=== PATIENT | male | born 1940 | race Caucasian/White ===

== ENCOUNTER → 2019-02-24 | Outpatient (REF) | payer MEDICARE | LOC: M SMT 12:52 | PROVIDERS: ATTEND Nurse Practitioner Family | DX: R97.20 Elevated prostate specific antigen [PSA] (principal) | CPT/HCPCS: 51798; 87086; G0463 ==

== ENCOUNTER → 2019-07-06 | Outpatient (REF) | payer MEDICARE ==
[2019-07-06 19:57] LABS: APPEARANCE, URINE CLEAR (CLEAR); BACTERIA, URINE AUTO NEGATIVE (NEGATIVE); BILIRUBIN, URINE AUTO NEGATIVE (NEGATIVE); BLOOD, URINE BLOOD NEGATIVE (NEGATIVE); COLOR, URINE YELLOW (YELLOW); GLUCOSE, URINE (UA) AUTO NEGATIVE (NEGATIVE); KETONE, URINE AUTO NEGATIVE (NEGATIVE); LEUKOCYTE ESTERASE, URINE AUTO NEGATIVE (NEGATIVE); MUCUS, URINE SMALL (NEGATIVE); NITRITE, URINE AUTO NEGATIVE (NEGATIVE); PROTEIN, URINE AUTO 1+ mg/dL (NEGATIVE); RBC, URINE AUTO 1 /HPF (0-3); SQUAMOUS EPITHELIAL CELL UR AU 0 /HPF (0-6); WBC, URINE AUTO 1 /HPF (0-3)
== END ==
LOC: M SMT 17:46
PROVIDERS: ATTEND Nurse Practitioner Family
DX: R97.20 Elevated prostate specific antigen [PSA] (principal); R31.0 Gross hematuria
CPT/HCPCS: 51798; 81001; 87086; G0463

== ENCOUNTER 2020-02-29 08:59 | Inpatient (IN) | payer MEDICARE ==
[2020-02-29] VITALS (14 sets, daily range): BP systolic 130–222; BP diastolic 58–102
[~2020-02-29] VITALS: Ht 180.3 cm; Wt 102.3 kg
[2020-02-29] MEDS ORDERED: MAALOX 30 ML SUSP *UDC PO PRN (13:00)
[2020-02-29] MEDS ORDERED: NS 1,000 ML IV SCH (13:00)
[2020-02-29] MEDS ORDERED: LISI-538 PO (13:41)
[2020-02-29] MEDS ORDERED: ROSU40TA4 PO (13:41)
[2020-02-29] MEDS ORDERED: AMLO1TAB24 PO (13:41)
[2020-02-29] MEDS ORDERED: FURO40TA2 PO (13:41)
[2020-02-29] MEDS ORDERED: ASPI81TA86 PO (13:41)
[2020-02-29] MEDS ORDERED: ELIQ5TAB PO (13:41)
[2020-02-29] MEDS ORDERED: CARV25TA PO (13:41)
[2020-02-29 13:48] LABS: BASO % 0.1 % (0.0-1.0); HEMATOCRIT 47.2 % (42.0-52.0); HEMOGLOBIN 15.9 g/dl (13.5-17.5); LYMPH # 0.6 10^3/uL (1.5-5.0); LYMPH % 3.3 % (24.0-44.0); MEAN CORPUSCULAR HEMOGLOBIN 30.8 pg (27.0-33.0); MEAN CORPUSCULAR HGB CONC 33.7 g/dl (32.0-36.5); MEAN CORPUSCULAR VOLUME 91.3 fl (80.0-96.0); MONO # 0.8 10^3/uL (0.0-0.8); MONO % 4.4 % (0.0-5.0); NEUTROPHILS # 15.5 10^3/uL (1.5-8.5); NEUTROPHILS % 91.6 % (36.0-66.0); PLATELET COUNT, AUTOMATED 267 10^3/uL (150-450); RED BLOOD COUNT 5.17 10^6/uL (4.30-6.10); WHITE BLOOD COUNT 16.9 10^3/uL (4.0-10.0)
[2020-02-29] MEDS: MORPHINE 2 MG/ML 1ML VIAL (J2270) IV PRN ×3 (13:57→21:38)
[2020-02-29] MEDS: LABETALOL 100MG/20ML VIAL IV PRN ×2 (13:57→23:04)
[2020-02-29 14:18] LABS: ALBUMIN 3.5 GM/DL (3.2-5.2); ALT/SGPT 647 U/L (12-78); AMYLASE 587 U/L (25-115); BILIRUBIN,TOTAL 4.8 MG/DL (0.2-1.0); BLOOD UREA NITROGEN 19 MG/DL (7-18); CALCIUM LEVEL 9.1 MG/DL (8.8-10.2); CARBON DIOXIDE LEVEL 25 MEQ/L (21-32); CHLORIDE LEVEL 106 MEQ/L (98-107); CREATININE FOR GFR 1.04 MG/DL (0.70-1.30); FREE T4 1.42 NG/DL (0.76-1.46); GLOMERULAR FILTRATION RATE > 60.0 (>42); GLUCOSE, FASTING 170 MG/DL (70-100); LIPASE 3031 U/L (73-393); POTASSIUM SERUM 3.6 MEQ/L (3.5-5.1); SODIUM LEVEL 137 MEQ/L (136-145); THYROID STIMULATING HORMONE 0.544 uIU/ML (0.358-3.740); TOTAL PROTEIN 7.1 GM/DL (6.4-8.2); TROPONIN I < 0.02 NG/ML (< 0.10)
[2020-02-29] MEDS: ONDANSETRON 4MG/2ML VIAL IV PRN (14:18)
--- NOTE | 2020-02-29 15:08 | HPEPDOC ---
[facility] Medical History & Physical Date of Admission Feb 29, 2020 Date of Service: Feb 29, 2020 History and Physical CHIEF COMPLAINT: abdominal pain HISTORY OF PRESENT ILLNESS: 79 yo M with a hx of chronic atrial fibrillation (AC eliquis, pacemaker), CAD, HTN, transferred from [facility] with severe abdominal pain, suspected secondary to gallstone pancreatitis. Patient states that he developed severe (9/10) abdominal pain after eating dinner, at approximimately 1800 yesterday evening. The pain was diffuse in abdomen, worse in the epigastrium, LUQ, RUQ. He vomited once after retching, but had no diarrhea. He had not had any hematemesis, or blood on stool. Denies hx of dark stools. On arrival to [facility], BP noted to be 220/102. Given labetalol 40 mg IV total. He denies having fevers, chills, chest pain, shortness of breath, palpitations, vision changes, or headache. Of note, patient reports undergoing recent workup for hematuria, follows with urology in [place], theo [facility]. Admitted to PCU for management of hypertensive urgency and workup of severe abdominal pain. Of note, patient arrived to [place] ED this morning with severe pain. He was afebrile in the ED. EKG showed no acute changes. Labs remarkable for WBC 14.1. Hgb 15.0. PLT 225. AST 565, ALT 678, ALP 465. Amylase 1804. Lipase 9867. Per transfer note, CT abdomen was performed, showing cholelithiasis and inflammatory changes around pancreas (report not available). Patient was transfered to [facility] for workup of suspected gallstone pancreatitis. PAST MEDICAL HISTORY: Chronic afib on AC (eliquis), pacemaker diastolic CHF HTN HLD CAD Hematuria PAST SURGICAL HISTORY: reports no prior hx apart from pacemaker placement SOCIAL HISTORY: states former smoker, quit 30 years ago states regular etoh use, but none for 2 weeks (drinks ~6 units per day) FAMILY HISTORY: denies hx of cancer in family no other pertinent hx ALLERGIES: Please see below. REVIEW OF SYSTEMS: CONSTITUTIONAL: denies fevers, chills HEENT: denies blurred vision. CARDIOVASCULAR: denies chest pain, palpitations RESPIRATORY: denies shortness of breath, cough, sputum, wheezing GASTROINTESTINAL: reports 7/10 abdominal pain, worse in epigastrium, LUQ, RUQ. GENITOURINARY: reports hx of hematuria, none immediately prior to admission . SKIN: denies rashes. MUSCULOSKELETAL: denies joint pain . NEUROLOGICAL: denies focal weakness, numbness, seizures. PSYCHIATRIC: denies SI, AH, VH HOME MEDICATIONS: Please see below. PHYSICAL EXAMINATION: VITAL SIGNS: please see below General: NAD, comfortable HEENT: PERRLA, EOMI, sclerae clear Neck: supple, normal ROM, no JVD Resp: lungs CTAB, no wheeze, no rales, no crackles CVS: RRR, normal S1, S2, no murmurs Abdo: soft, no masses, no hepatosplenomegaly, BS+, no rebound tenderness Extremities: no edema, pulses 2+ MSK: no joint deformities, normal ROM Neuro: no focal neuro deficits, moving all 4 extremities Psych: calm, cooperative, AAO x 3 LABORATORY DATA: See below. IMAGING: MICROBIOLOGY: Please see below. ASSESSMENT: 76 yo M with a hx of chronic atrial fibrillation (AC eliquis, pacemaker), CAD, HTN, transferred from [facility] with severe abdominal pain, suspected secondary to gallstone pancreatitis vs cholangitis. GI consulted, plan for ERCP. HTN urgency noted, IV labetalol pushes, may require drip. #Abdominal pain - suspected gallstone pancreatitis vs cholangitis - AST/ALT 443/647, ALP 484 (at OSH ASA/ALT/ALP 565/678/465) - T bili 4.9, D bili 4.0 (t bili this morning at OSH 3.5) - lipase > 9000, amylase 1800. Trending down. - NPO for now - patient is afebrile, with WBC 16.9 - mild jaundice on exam - CT at [place] showing cholelithiasis with inflammation of pancreas - unable to obtain MRCP due to pacemaker - ordered liver US showing CBD dilation at 1 cm, gallstones, sludge in gallbladd er - empiric zosyn started - GI consult placed, Dr. Crockett aware. Plan for ERCP on 03/02/20, hold eliquis. # Hypertensive urgency - BP 220/102 mmg Hg, asymptomatic - known hx of HTN - given labetalol 10 mg IV, followed by 20 mg. - if no response, plan to transfer to ICU for nitro drip - resume home meds amlodipine 5mg po BID, coreg 25 mg BID, lasix 40 mg PO - trop < 0.02 - Free T4 1.42 #Chronic afib - on AC with eliquis 5 mg BID - coreg 25 mg BID - follows with Dr. Avendaño #Hx CAD? - discussed with Dr. Avendaño, patient had cath in 2013, s/p JAYE to LAD, noted complete RCA stenosis - ASA/statin #Diastolic CHF - last echo in 11/2018, showing normal EF, no valvular disease per Dr. Avendaño - c/w PO lasix #Elevated FBG - likely acute phase reaction - check A1c - ISS - hypoglycemia precautions DVT ppx: on eliquis, SCDs, TEDs Dispo: likely return home, pending medical clearance Stay likely to exceed 2 nights, full admit Vital Signs Vital Signs Date Time Temp Pulse Resp B/P (MAP) Pulse Ox O2 Delivery O2 Flow Rate FiO2 02/29/20 14:07 18 Room Air 02/29/20 13:57 65 200/86 02/29/20 13:33 97.8 97 Laboratory Data Labs 24H Laboratory Tests 2 02/29/20 13:24: Immature Granulocyte % (Auto) 0.6, Neutrophils (%) (Auto) 91.6H, Lymphocytes (%) (Auto) 3.3L, Monocytes (%) (Auto) 4.4, Eosinophils (%) (Auto) 0.0, Basophils (%) (Auto) 0.1, Neutrophils # (Auto) 15.5H, Lymphocytes # (Auto) 0.6L, Monocytes # (Auto) 0.8, Eosinophils # (Auto) 0.0, Basophils # (Auto) 0.0, Nucleated Red Bloo d Cells % (auto) 0.0, Anion Gap 6L, Glomerular Filtration Rate > 60.0, Lactic Acid Level 0.9, Calcium Level 9.1, Magnesium Level 2.0, Total Bilirubin 4.8H, Aspartate Amino Transf (AST/SGOT) 443H, Alanine Aminotransferase (ALT/SGPT) 647H, Alkaline Phosphatase 484H, Troponin I < 0.02, Total Protein 7.1, Albumin 3.5, Albumin/Globulin Ratio 1.0, Amylase Level 587H, Lipase 3031H, Thyroid Stimulating Hormone (TSH) 0.544, Free Thyroxine 1.42 CBC/BMP Laboratory Tests 02/29/20 13:24 Home Medications Scheduled Amlodipine Besylate (Amlodipine Besylate) 5 Mg Tablet, 5 MG PO BID Apixaban (Eliquis) 5 Mg Tablet, 5 MG PO BID Aspirin (Aspir 81) 81 Mg Tablet.dr, 81 MG PO DAILY Carvedilol (Carvedilol) 25 Mg Tablet, 25 MG PO BID Furosemide (Furosemide) 40 Mg Tablet, 40 MG PO Q2D Lisinopril (Lisinopril) 20 Mg Tablet, 20 MG PO BID Rosuvastatin Calcium (Rosuvastatin Calcium) 40 Mg Tablet, 40 MG PO DAILY Allergies Coded Allergies: No Known Allergies (Unverified , 02/29/20) A-FIB/CHADSVASC A-FIB History Current/History of A-Fib/PAF?: Yes Current PO Anticoag Therapy: Yes AUGIE TATUM MD Feb 29, 2020 15:08
[2020-02-29] MEDS: FUROSEMIDE 40 MG TAB PO SCH (15:26)
[2020-02-29] MEDS: ASPIRIN 81 MG ENTERIC TAB PO SCH (15:26)
[2020-02-29] MEDS: ROSUVASTATIN 10 MG TAB (CRESTOR) PO SCH (15:26)
[2020-02-29] MEDS ORDERED: FLUBLOK(EGG FREE)(QUAD)INFLUENZA VACC 0.5ML SYRINGE 18YRS & OLDER IM PRN (15:30)
[2020-02-29] MEDS: PIPERACILLIN/TAZOBACTAM SOD 3.375 GM in D5W MINI-BAG PLUS 50 ML IV SCH (17:04)
[2020-02-29] MEDS ORDERED: LABETALOL 100MG/20ML VIAL IV STA (17:12)
[2020-02-29] MEDS ORDERED: LABETALOL 100MG/20ML VIAL IV SCH (18:45)
--- NOTE | 2020-02-29 18:57 | REPVR ---
PROCEDURE INFORMATION: Exam: US Abdomen, Limited; Right Upper Quadrant Exam date and time: 02/29/2020 6:05 PM Age: 79 years old Clinical indication: Abdominal pain; Acute; Additional info: Suspect cbd obstruction TECHNIQUE: Imaging protocol: US abdomen. Real time ultrasound with image documentation. Limited exam focused on the right upper quadrant. COMPARISON: No relevant prior studies available. FINDINGS: Liver: There are 3 cysts scattered throughout the liver ranging in size from 8 mm to 1 cm. Gallbladder: There is a large amount of sludge and gallstones in the dependent portion of gallbladder. Gallstones range in size from 3 mm to 1 cm. There is thickening of the gallbladder wall measuring 5 mm. This could be secondary to cholecystitis. Common bile duct: The common bile duct is dilated measuring 1 cm. This could be dilated secondary to distal stone, stricture or mass. Correlation with CT and MRCP should be considered. Pancreas: The pancreas is completely obscured by bowel gas and cannot evaluated. Right kidney: The right kidney measures 14 cm in length with no evidence of hydronephrosis. IMPRESSION: 1. Dilatation of the common bile duct measuring 1 cm and this could be secondary to obstruction by a stone, stricture or small mass. Recommend CT scan and MRCP for further evaluation. 2. Thickening of the gallbladder wall at 5 mm and this could be secondary to cholecystitis. 3. Sludge and gallstones within the gallbladder. Electronically signed by: Gilles Barrios On 02/29/2020 18:57:30 PM
[2020-02-29] MEDS: LR 1,000 ML IV SCH (20:10)
[2020-02-29] MEDS: DOCUSATE SODIUM 100 MG CAP PO SCH (20:15)
[2020-02-29] MEDS: amLODIPine 5 MG TAB PO SCH (20:16)
[2020-02-29] MEDS: lisinopriL 20 MG TAB PO SCH (20:16)
[2020-02-29] MEDS ORDERED: APIXABAN 5 MG TAB (ELIQUIS) PO SCH (21:00)
[2020-02-29] MEDS ORDERED: CARVedilol 12.5 MG TAB PO SCH (21:00)
[2020-02-29] MEDS: LABETALOL HCL 200 MG in D5W 160 ML IV SCH (21:48)
[2020-03-01] VITALS (27 sets, daily range): BP systolic 125–186; BP diastolic 58–98
[2020-03-01] MEDS: LABETALOL HCL 200 MG in D5W 160 ML IV SCH ×2 (02:16→05:20)
[2020-03-01] MEDS: PIPERACILLIN/TAZOBACTAM SOD 3.375 GM in D5W MINI-BAG PLUS 50 ML IV SCH ×4 (02:22→19:54)
[2020-03-01 04:29] LABS: BASO % 0.1 % (0.0-1.0); HEMATOCRIT 44.5 % (42.0-52.0); HEMOGLOBIN 14.5 g/dl (13.5-17.5); LYMPH # 0.4 10^3/uL (1.5-5.0); LYMPH % 2.4 % (24.0-44.0); MEAN CORPUSCULAR HEMOGLOBIN 29.6 pg (27.0-33.0); MEAN CORPUSCULAR HGB CONC 32.6 g/dl (32.0-36.5); MEAN CORPUSCULAR VOLUME 90.8 fl (80.0-96.0); NEUTROPHILS # 15.4 10^3/uL (1.5-8.5); NEUTROPHILS % 90.8 % (36.0-66.0); PLATELET COUNT, AUTOMATED 227 10^3/uL (150-450)
[2020-03-01 04:54] LABS: ALBUMIN 2.9 GM/DL (3.2-5.2); ALT/SGPT 491 U/L (12-78); BILIRUBIN,TOTAL 4.3 MG/DL (0.2-1.0); BLOOD UREA NITROGEN 19 MG/DL (7-18); CALCIUM LEVEL 8.5 MG/DL (8.8-10.2); CARBON DIOXIDE LEVEL 26 MEQ/L (21-32); CHLORIDE LEVEL 105 MEQ/L (98-107); CREATININE FOR GFR 1.14 MG/DL (0.70-1.30); GLOMERULAR FILTRATION RATE > 60.0 (>42); GLUCOSE, FASTING 185 MG/DL (70-100); MAGNESIUM LEVEL 1.9 MG/DL (1.8-2.4); SODIUM LEVEL 137 MEQ/L (136-145); TOTAL PROTEIN 6.7 GM/DL (6.4-8.2)
[2020-03-01] MEDS: LR 1,000 ML IV SCH ×2 (05:22→16:43)
[2020-03-01 05:38] LABS: HEMOGLOBIN A1c 6.2 %
[2020-03-01] MEDS: KCL 10MEQ/100ML SWI (KRUN) 10 MEQ in IV 1 EA IV SCH ×6 (06:30→22:54)
[2020-03-01] MEDS: lisinopriL 20 MG TAB PO SCH (08:30)
[2020-03-01] MEDS: DOCUSATE SODIUM 100 MG CAP PO SCH ×2 (08:30→20:55)
[2020-03-01] MEDS: CARVedilol 12.5 MG TAB PO SCH ×2 (08:30→20:56)
[2020-03-01] MEDS: ASPIRIN 81 MG ENTERIC TAB PO SCH (08:30)
[2020-03-01] MEDS: amLODIPine 5 MG TAB PO SCH (08:30)
[2020-03-01] MEDS: ROSUVASTATIN 10 MG TAB (CRESTOR) PO SCH (08:30)
[2020-03-01] MEDS ORDERED: hydrALAZINE 20MG/ML 1ML VIAL (J0360 PER 20MG) IV PRN (10:30)
[2020-03-01] MEDS ORDERED: amLODIPine 5 MG TAB PO ONE (10:30)
--- NOTE | 2020-03-01 16:52 | IPNPDOC ---
Date Seen The patient was seen on 03/01/20. Progress Note SUBJECTIVE: Labetalol drip opt this a.m., transition to home oral medications. Oral lisinopril was later increased to 30 twice a day. SCM was supplemented 50 mEq. GI has seen patient and plan is ERCP on 03/02/2020. Patient admits to continued abdominal discomfort; however, denies nausea, vomiting, fevers, chills or chest pain. OBJECTIVE: PHYSICAL EXAMINATION: VITAL SIGNS: please see below General: NAD, comfortable HEENT: PERRLA, EOMI, sclerae clear Neck: supple, normal ROM, no JVD Resp: lungs CTAB, no wheeze, no rales, no crackles CVS: RRR, normal S1, S2, no murmurs Abdo: soft, no masses, no hepatosplenomegaly, BS+, tenderness to palpation of RUQ Extremities: no edema, pulses 2+ MSK: no joint deformities, normal ROM Neuro: no focal neuro deficits, moving all 4 extremities Psych: calm, cooperative, AAO x 3 LABORATORY DATA/MICROBIOLOGY: See below. IMAGING: Liver US: 1. Dilatation of the common bile duct measuring 1 cm and this could be secondary to obstruction by a stone, stricture or small mass. Recommend CT scan and MRCP for further evaluation. 2. Thickening of the gallbladder wall at 5 mm and this could be secondary to cholecystitis. 3. Sludge and gallstones within the gallbladder. ASSESSMENT: 76 yo M with a hx of chronic atrial fibrillation (AC eliquis, pacem erasto), CAD, HTN admitted for suspected secondary to gallstone pancreatitis vs cholangitis, hypertensive urgency. #Abdominal pain likely 2/2 to gallstone pancreatitis vs. cholangitis - Afebrile, WBC remains elevated at 17K - Improving AST/ALT, ALP, bili, amylase. - unable to obtain MRCP due to pacemaker - C/w zosyn, daily labs, NPO status, pain control - GI ( Dr. Crockett) following, eliquis stopped 02/29/20. Plan for ERCP on 03/02/20 # Hypertensive urgency - BP improved after d/c labetalol gtt, increasing lisinopril to 30 mg BID and amlodipine to 10 mg PO daily - Known hx of HTN - C/w BB, CCB, ACEi BID, hydralazine PRN IV for systolic BP >180 mmHg #Hypokalemia -K 3.0 this AM, 50 mEq supplemented. -F/u repeat AM labs #Chronic afib - Rate controlled - C/w coreg 25 mg BID, eliquis 5 mg BID - follows with Dr. Avendaño #Hx CAD - discussed with Dr. Avendaño, patient had cath in 2013, s/p JAYE to LAD, noted complete RCA stenosis - C/w ASA/statin/BB #Diastolic CHF - last echo in 11/2018, showing normal EF, no valvular disease per Dr. Avendaño - C/w PO lasix, BB, CCB #Prediabetes -HbA1c 6.2 -ISS, consistent carb diet, hypoglycemia precautions # DVT ppx - C/w eliquis, SCDs, TEDs DISPOSITION: likely return home, pending medical clearance and evaluation by PT/OT. VS, I&O, 24H, Fishbone Vital Signs/I&O Vital Signs Date Time Temp Pulse Resp B/P (MAP) Pulse Ox O2 Delivery O2 Flow Rate FiO2 03/01/20 14:00 66 136/62 (86) 03/01/20 12:00 98.2 18 100 Room Air I&O- Last 24 Hours up to 6 AM 03/01/20 06:00 Intake Total 1780 ml Output Total 1050 ml Balance 730 ml Laboratory Data 24H LABS Laboratory Tests 2 03/01/20 04:01: Immature Granulocyte % (Auto) 0.7, Neutrophils (%) (Auto) 90.8H, Lymphocytes (%) (Auto) 2.4L, Monocytes (%) (Auto) 6.0H, Eosinophils (%) (Auto) 0.0, Basophils (%) (Auto) 0.1, Neutrophils # (Auto) 15.4H, Lymphocytes # (Auto) 0.4L, Monocytes # (Auto) 1.0H, Eosinophils # (Auto) 0.0, Basophils # (Auto) 0.0, Nucleated Red Blood Cells % (auto) 0.0, Anion Gap 6L, Glomerular Filtration Rate > 60.0, Estimated Mean Plasma Glucose 131H, Hemoglobin A1c 6.2, Calcium Level 8.5L, Magnesium Level 1.9, Total Bilirubin 4.3H, Aspartate Amino Transf (AST/SGOT) 261H, Alanine Aminotransferase (ALT/SGPT) 491H, Alkaline Phosphatase 374H, Total Protein 6.7, Albumin 2.9L, Albumin/Globulin Ratio 0.8 CBC/BMP Laboratory Tests 03/01/20 04:01 Current Medications Current Medications Medications (Trade) Dose Ordered Sig/Jie Route PRN Reason Start Time Stop Time Status Last Admin Dose Admin Al Hydrox/Mg Hydrox/Simethicone (Mylanta) 30 ml DAILY PRN PO DYSPEPSIA 02/29/20 13:00 Amlodipine Besylate (Norvasc) 5 mg BID PO 02/29/20 21:00 03/01/20 10:26 DC 03/01/20 08:30 Amlodipine Besylate (Norvasc) 10 mg DAILY PO 03/02/20 09:00 Apixaban (Eliquis) 5 mg BID PO 02/29/20 21:00 02/29/20 18:42 DC Aspirin (Ecotrin) 81 mg DAILY PO 02/29/20 09:00 03/01/20 08:30 Carvedilol (COReg) 25 mg BID PO 02/29/20 21:00 02/29/20 20:02 DC Carvedilol (COReg) 25 mg BID PO 03/01/20 09:00 03/01/20 08:30 Docusate Sodium (Colace) 100 mg BID PO 02/29/20 21:00 03/01/20 08:30 Furosemide (Lasix) 40 mg Q48H PO 02/29/20 09:00 02/29/20 15:26 Home Med (Med Rec Complete!) ASDIRECTED XX 02/29/20 14:00 02/29/20 13:55 DC Hydralazine HCl (Apresoline) 10 mg Q8HP PRN IV systolic bp >180 mmHg 03/01/20 10:30 Influenza Virus Vaccine (Flublok Quad(Egg-Free)18y&Older Influenza) 0.5 ml ONCE PRN IM SEE LABEL COMMENTS 02/29/20 15:30 Labetalol HCl (Normodyne, Trandate) 10 mg NOW IV 02/29/20 18:45 02/29/20 18:46 DC 02/29/20 18:48 Labetalol HCl (Normodyne, Trandate) 10 mg Q6H PRN IV SBP > 180 MMHG 02/29/20 13:15 03/01/20 07:51 DC 02/29/20 23:04 Labetalol HCl (Normodyne, Trandate) 20 mg STAT STAT IV 02/29/20 17:12 02/29/20 17:13 DC 02/29/20 17:19 Labetalol HCl 200 mg/Dextrose 200 ml @ 30 mls/hr Q6H40M IV 02/29/20 21:00 03/01/20 07:51 DC 03/01/20 05:20 Lactated Ringer's 1,000 ml @ 100 mls/hr Q10H IV 02/29/20 20:00 03/01/20 05:22 Lisinopril (Prinivil) 20 mg BID PO 02/29/20 21:00 03/01/20 10:26 DC 03/01/20 08:30 Lisinopril (Prinivil) 30 mg BID PO 03/01/20 21:00 Morphine Sulfate (Morphine Sulfate Inj) 2 mg Q4H PRN IV MODERATE PAIN (PS 5-7) 02/29/20 13:00 02/29/20 21:38 Ondansetron HCl (ZOFRAN INJection) 4 mg Q4HP PRN IV NAUSEA OR VOMITING 02/29/20 13:00 02/29/20 14:18 Piperacillin Sod/ Tazobactam Sod 3.375 gm/Dextrose 50 ml @ 50 mls/hr Q6H IV 02/29/20 17:00 03/01/20 02:33 DC 03/01/20 02:22 Piperacillin Sod/ Tazobactam Sod 3.375 gm/Dextrose 50 ml @ 50 mls/hr Q6H IV 03/01/20 08:00 03/01/20 14:17 Potassium Chloride 10 meq/ IV Miscellaneous Supplies 100 ml @ 100 mls/hr 0630,0730,0830 IV 03/01/20 06:30 03/01/20 12:30 DC 03/01/20 09:00 Potassium Chloride 10 meq/ IV Miscellaneous Supplies 100 ml @ 100 mls/hr 0930,1030 IV 03/01/20 09:30 03/01/20 14:30 DC 03/01/20 11:41 Rosuvastatin Calcium (Crestor) 40 mg DAILY PO 02/29/20 09:00 03/01/20 08:30 Sodium Chloride 1,000 ml @ 100 mls/hr Q10H IV 02/29/20 13:00 02/29/20 19:19 DC 02/29/20 13:58 Allergies Coded Allergies: No Known Allergies (Unverified , 02/29/20) Krysta Hernández MD Mar 01, 2020 16:52
[2020-03-01] MEDS: MORPHINE 2 MG/ML 1ML VIAL (J2270) IV PRN (20:03)
[2020-03-01] MEDS: lisinopriL 10 MG TAB PO SCH (21:00)
[2020-03-02] VITALS (11 sets, daily range): BP systolic 108–176; BP diastolic 53–80
[2020-03-02] MEDS: KCL 10MEQ/100ML SWI (KRUN) 10 MEQ in IV 1 EA IV SCH ×8 (00:16→13:05)
[2020-03-02] MEDS: LR 1,000 ML IV SCH ×3 (01:56→21:34)
[2020-03-02] MEDS: PIPERACILLIN/TAZOBACTAM SOD 3.375 GM in D5W MINI-BAG PLUS 50 ML IV SCH ×4 (01:56→20:11)
[2020-03-02 04:59] LABS: BASO % 0.1 % (0.0-1.0); HEMATOCRIT 41.2 % (42.0-52.0); HEMOGLOBIN 13.7 g/dl (13.5-17.5); LYMPH # 0.7 10^3/uL (1.5-5.0); LYMPH % 3.5 % (24.0-44.0); MEAN CORPUSCULAR HEMOGLOBIN 30.2 pg (27.0-33.0); MEAN CORPUSCULAR HGB CONC 33.3 g/dl (32.0-36.5); MEAN CORPUSCULAR VOLUME 90.7 fl (80.0-96.0); MONO # 1.3 10^3/uL (0.0-0.8); MONO % 7.1 % (0.0-5.0); NEUTROPHILS # 16.4 10^3/uL (1.5-8.5); NEUTROPHILS % 88.1 % (36.0-66.0); PLATELET COUNT, AUTOMATED 194 10^3/uL (150-450); RED BLOOD COUNT 4.54 10^6/uL (4.30-6.10); WHITE BLOOD COUNT 18.6 10^3/uL (4.0-10.0)
[2020-03-02 05:07] LABS: ALBUMIN 2.6 GM/DL (3.2-5.2); ALT/SGPT 295 U/L (12-78); BILIRUBIN,TOTAL 1.9 MG/DL (0.2-1.0); BLOOD UREA NITROGEN 18 MG/DL (7-18); CALCIUM LEVEL 8.5 MG/DL (8.8-10.2); CARBON DIOXIDE LEVEL 25 MEQ/L (21-32); CHLORIDE LEVEL 107 MEQ/L (98-107); GLOMERULAR FILTRATION RATE > 60.0 (>42); GLUCOSE, FASTING 131 MG/DL (70-100); MAGNESIUM LEVEL 1.9 MG/DL (1.8-2.4); POTASSIUM SERUM 3.2 MEQ/L (3.5-5.1); SODIUM LEVEL 138 MEQ/L (136-145); TOTAL PROTEIN 6.4 GM/DL (6.4-8.2)
[2020-03-02] MEDS ORDERED: ACETAMINOPHEN 650 MG SUPP PR PRN (08:00)
[2020-03-02] MEDS: DOCUSATE SODIUM 100 MG CAP PO SCH ×2 (08:22→20:12)
[2020-03-02] MEDS: FUROSEMIDE 40 MG TAB PO SCH (08:22)
[2020-03-02] MEDS: CARVedilol 12.5 MG TAB PO SCH ×2 (08:23→20:13)
[2020-03-02] MEDS: amLODIPine 10 MG TAB PO SCH (08:23)
[2020-03-02] MEDS: ASPIRIN 81 MG ENTERIC TAB PO SCH (08:24)
[2020-03-02] MEDS: ROSUVASTATIN 10 MG TAB (CRESTOR) PO SCH (08:24)
[2020-03-02] MEDS: lisinopriL 10 MG TAB PO SCH ×2 (08:24→20:13)
[2020-03-02] MEDS: ACETAMINOPHEN TAB 650MG DOSE (2X325MG) PO PRN (08:26)
[2020-03-02] MEDS ORDERED: LIDOCAINE 2% 100MG/5ML SDV (FOR ANES.) As Ordered ONE (12:50)
[2020-03-02] MEDS ORDERED: fentaNYL 100 MCG/2 ML INJECTION (J3010) As Ordered ONE (12:50)
[2020-03-02] MEDS ORDERED: ROCURONIUM BROMIDE 50 MG/5 ML VIAL As Ordered ONE (12:50)
[2020-03-02] MEDS ORDERED: MIDAZOLAM INJ 2MG/2ML VIAL (J2250 PER 1MG) As Ordered ONE (12:50)
[2020-03-02] MEDS ORDERED: propofoL 200 MG/20 ML VIAL As Ordered ONE (12:50)
[2020-03-02] MEDS ORDERED: ISOVUE-300 61% 50ML VIAL As Ordered ONE (12:56)
[2020-03-02] MEDS ORDERED: ONDANSETRON 4MG/2ML VIAL As Ordered ONE (12:58)
[2020-03-02] MEDS ORDERED: KETOROLAC 60MG 2ML VIAL As Ordered ONE (12:58)
[2020-03-02] MEDS ORDERED: dexameTHASONE 4 MG/ML 1ML VIAL (J1100 PER 1MG) As Ordered ONE (12:58)
[2020-03-02] MEDS ORDERED: ePHEDrine SULFATE 25 MG/5 ML(5MG/ML) SYRINGE As Ordered ONE (13:56)
[2020-03-02] MEDS ORDERED: POTASSIUM CHLORIDE 10 MEQ SR TABLET PO ONE (14:15)
[2020-03-02] MEDS ORDERED: SUGAMMADEX SODIUM 500 MG/5 ML VIAL (BRIDION) As Ordered ONE (14:22)
[2020-03-02] MEDS ORDERED: fentaNYL 100 MCG/2 ML INJECTION (J3010) IV PRN (15:30)
[2020-03-02] MEDS ORDERED: LR 1,000 ML IV SCH (15:30)
[2020-03-02] MEDS ORDERED: ONDANSETRON 4MG/2ML VIAL IV PRN (15:30)
[2020-03-02] MEDS ORDERED: PERCOCET 5MG/325MG TAB PO PRN (15:30)
[2020-03-02] MEDS ORDERED: METOCLOPRAMIDE INJ 10MG/2ML VIAL (J2765 PER 1) IV PRN (15:30)
--- NOTE | 2020-03-02 15:31 | ROOR ---
Patient Name: Yusuf Haney Procedure Date: 03/02/2020 1:05 PM Date of : 1940 Age: 79 Room: [facility] Gender: Male Note Status: Finalized Procedure: ERCP Indications: Follow-up of ascending cholangitis, Jaundice, Gallstone associated acute pancreatitis Providers: Chris CROCKETT MD Referring MD: 2. Inpatient 2. Inpatient Requesting Provider: Medicines: Monitored Anesthesia Care Complications: No immediate complications. Procedure: Pre-Anesthesia Assessment: - The heart rate, respiratory rate, oxygen saturations, blood pressure, adequacy of pulmonary ventilation, and response to care were monitored throughout the procedure. The Duodenoscope was introduced through the mouth, and advanced to the duodenum and used to inject contrast into the bile duct. The ERCP was accomplished without difficulty. The patient tolerated the procedure well. Findings: The it help desk manager film was normal. The esophagus was successfully intubated under direct vision. The scope was advanced to a small major papilla located entirely within a diverticulum in the descending duodenum, without detailed examination of the pharynx, larynx and associated structures, and upper GI tract. The upper GI tract was grossly normal. The bile duct was deeply cannulated. Contrast was injected. I personally interpreted the bile duct images. Ductal flow of contrast was adequate. Image quality was adequate. Opacification of the entire biliary tree except for the gallbladder was successful. The maximum diameter of the ducts was 12 mm. The lower third of the main bile duct and middle third of the main bile duct contained multiple stones, the largest of which was 10 mm in diameter. The upper third and lower third of the main bile duct was segmentally dilated. The middle portion tapers smoothly. The largest diameter was 12 mm. A wire passed successfully into the bile duct. A 6 mm biliary sphincterotomy was made with a traction (standard) sphincterotome using ERBE electrocautery. There was no post-sphincterotomy bleeding. The biliary tree was swept with a 9-12 mm balloon starting at the bifurcation. Debris was swept from the duct. Sludge was swept from the duct. Two stones were removed. Many stones/debris remained. Lithotripsy with the mechanical lithotripter was successful for stone fragmentation, but the removal of stone and debris was incomplete. Cells for cytology were obtained by brushing in the middle third of the main bile duct. One 10 Fr by 8 cm temporary stent with a single external flap and a single internal flap was placed into the common bile duct. Bile flowed through the stent. The stent was in good position. Impression: - The papilla is small and located completely inside a diverticulum. - The proximal main bile duct was dilated and tapers smoothly in the mid portion, then is dilated again in the distal bile duct. - Choledocholithiasis (multiple) was found. - A biliary sphincterotomy was performed. - Partial removal was accomplished with lithotripsy and balloon sweep. Removal of stone and debris was incomplete - Lithotripsy was successful for stone fragmentation, but removal of stone and debris was incomplete - One temporary stent was placed into the common bile duct. - Cells for cytology were obtained by brushing in the middle third of the main bile duct. Recommendation: - Await cytology results. - Repeat ERCP in 1-3 months for retreatment. - Return to my office in 2 weeks. - The patient will need cholecystectomy after bile duct is cleared. - [facility]. Advance diet as tolerated. - Resume Eliquis (apixaban) at prior dose tomorrow. Chris Crockett MD Chris CROCKETT MD 03/02/2020 3:30:31 PM Electronically signed by Chris CROCKETT MD Number of Addenda: 0 Note Initiated On: 03/02/2020 1:05 PM Estimated Blood Loss: Estimated blood loss: none.
--- NOTE | 2020-03-02 15:46 | IPNPDOC ---
Date Seen The patient was seen on 03/02/20. Progress Note SUBJECTIVE: Febrile this AM 100.3-100.4, given tylenol. Repeat blood cultures, urinalysis ordered. Improved but mild abdominal discomfort; however, denies nausea, vomiting, fevers, chills or chest pain. ERCP today. OBJECTIVE: PHYSICAL EXAMINATION: VITAL SIGNS: please see below General: NAD, comfortable HEENT: PERRLA, EOMI, sclerae clear Neck: supple, normal ROM, no JVD Resp: lungs CTAB, no wheeze, no rales, no crackles CVS: RRR, normal S1, S2, no murmurs Abdo: soft, no masses, no hepatosplenomegaly, BS+, mild tenderness to palpation of abdomen RUQ-improving Extremities: no edema, pulses 2+ MSK: no joint deformities, normal ROM Neuro: no focal neuro deficits, moving all 4 extremities Psych: calm, cooperative, AAO x 3 LABORATORY DATA/MICROBIOLOGY: See below. IMAGING: Liver US: 1. Dilatation of the common bile duct measuring 1 cm and this could be secondary to obstruction by a stone, stricture or small mass. Recommend CT scan and MRCP for further evaluation. 2. Thickening of the gallbladder wall at 5 mm and this could be secondary to cholecystitis. 3. Sludge and gallstones within the gallbladder. ASSESSMENT: 76 yo M with a hx of chronic atrial fibrillation (AC eliquis, pacemaker), CAD, HTN admitted for suspected secondary to gallstone pancreatitis vs cholangitis, cannot r/o cholecystitis, hypertensive urgency #Abdominal pain 2/2 to gallstone pancreatitis vs. cholangitis, cannot r/o cholecystitis - Pain improving- now mild, febrile, WBC remains elevated at 18K - Continuing to improve: AST/ALT, ALP, bili, amylase. - Unable to obtain MRCP due to pacemaker - C/w zosyn, daily labs, NPO status, pain control - GI ( Dr. Crockett) following, eliquis stopped 02/29/20. Plan for ERCP this afternoon #Hypokalemia -K 3.2 this AM, 50 mEq supplemented. -F/u repeat AM labs # HTN. - BP improved - C/w BB, CCB, ACEi BID, hydralazine PRN IV for systolic BP >180 mmHg #Chronic afib - Rate controlled - C/w coreg 25 mg BID, eliquis 5 mg BID - Follows with Dr. Avendaño #Hx CAD - Patient had cath in 2013, s/p JAYE to [facility], noted complete RCA stenosis - Dr. Avendaño discussed case with hospitalist this admission - C/w ASA/statin/BB #Diastolic CHF - Last echo in 11/2018, showing normal EF, no valvular disease per Dr. Avendaño - C/w PO lasix, BB, CCB #Prediabetes -HbA1c 6.2 -ISS, consistent carb diet, hypoglycemia precautions # DVT ppx - Eliquis has been on hold for past 48 hrs- restart after procedure today. C/w SCDs, TEDs DISPOSITION:Downgrade to med/surg. PT/OT. Plan is discharge home when medically improved. VS, I&O, 24H, Fishbone Vital Signs/I&O Vital Signs Date Time Temp Pulse Resp B/P (MAP) Pulse Ox O2 Delivery O2 Flow Rate FiO2 03/02/20 12:12 98.6 61 18 116/59 (78) 95 Room Air I&O- Last 24 Hours up to 6 AM 03/02/20 06:00 Intake Total 3695 ml Output Total 1900 ml Balance 1795 ml Laboratory Data 24H LABS Laboratory Tests 2 03/02/20 04:10: Immature Granulocyte % (Auto) 1.2, Neutrophils (%) (Auto) 88.1H, Lymphocytes (%) (Auto) 3.5L, Monocytes (%) (Auto) 7.1H, Eosinophils (%) (Auto) 0.0, Basophils (%) (Auto) 0.1, Neutrophils # (Auto) 16.4H, Lymphocytes # (Auto) 0.7L, Monocytes # (Auto) 1.3H, Eosinophils # (Auto) 0.0, Basophils # (Auto) 0.0, Nucleated Red Blood Cells % (auto) 0.0, Anion Gap 6L, Glomerular Filtration Rate > 60.0, Calcium Level 8.5L, Magnesium Level 1.9, Total Bilirubin 1.9#H, Aspartate Amino Transf (AST/SGOT) 85H, Alanine Aminotransferase (ALT/SGPT) 295H, Alkaline Phosphatase 261H, Total Protein 6.4, Albumin 2.6L, Albumin/Globulin Ratio 0.7 03/02/20 08:20: Coronavirus (COVID-19)(PCR) NEGATIVE CBC/BMP Laboratory Tests 03/01/20 21:45 03/02/20 04:10 Microbiology Microbiology 03/02/20 Blood Culture, Received Pending 03/01/20 Blood Culture, Received Pending Current Medications Current Medications Medications (Trade) Dose Ordered Sig/Jie Route PRN Reason Start Time Stop Time Status Last Admin Dose Admin Acetaminophen (Tylenol Suppository) 650 mg Q6HP PRN AR PAIN / FEVER 03/02/20 08:00 03/02/20 08:16 DC Acetaminophen (Tylenol Tab) 650 mg Q6HP PRN PO PAIN / FEVER 03/02/20 08:15 03/02/20 08:26 Al Hydrox/Mg Hydrox/Simethicone (Mylanta) 30 ml DAILY PRN PO DYSPEPSIA 02/29/20 13:00 Amlodipine Besylate (Norvasc) 5 mg BID PO 02/29/20 21:00 03/01/20 10:26 DC 03/01/20 08:30 Amlodipine Besylate (Norvasc) 10 mg DAILY PO 03/02/20 09:00 03/02/20 08:23 Apixaban (Eliquis) 5 mg BID PO 02/29/20 21:00 02/29/20 18:42 DC Aspirin (Ecotrin) 81 mg DAILY PO 02/29/20 09:00 03/02/20 08:24 Carvedilol (COReg) 25 mg BID PO 02/29/20 21:00 02/29/20 20:02 DC Carvedilol (COReg) 25 mg BID PO 03/01/20 09:00 03/02/20 08:23 Docusate Sodium (Colace) 100 mg BID PO 02/29/20 21:00 03/02/20 08:22 Fentanyl Citrate (Sublimaze) 25 mcg Q5MP PRN IV PAIN LEVEL 5-10 03/02/20 15:30 03/02/20 16:30 Furosemide (Lasix) 40 mg Q48H PO 02/29/20 09:00 03/02/20 08:22 Home Med (Med Rec Complete!) ASDIRECTED XX 02/29/20 14:00 02/29/20 13:55 DC Hydralazine HCl (Apresoline) 10 mg Q8HP PRN IV systolic bp >180 mmHg 03/01/20 10:30 Influenza Virus Vaccine (Flublok Quad(Egg-Free)18y&Older Influenza) 0.5 ml ONCE PRN IM SEE LABEL COMMENTS 02/29/20 15:30 Labetalol HCl (Normodyne, Trandate) 10 mg NOW IV 02/29/20 18:45 02/29/20 18:46 DC 02/29/20 18:48 Labetalol HCl (Normodyne, Trandate) 10 mg Q6H PRN IV SBP > 180 MMHG 02/29/20 13:15 03/01/20 07:51 DC 02/29/20 23:04 Labetalol HCl (Normodyne, Trandate) 20 mg STAT STAT IV 02/29/20 17:12 02/29/20 17:13 DC 02/29/20 17:19 Labetalol HCl 200 mg/Dextrose 200 ml @ 30 mls/hr Q6H40M IV 02/29/20 21:00 03/01/20 07:51 DC 03/01/20 05:20 Lactated Ringer's 1,000 ml @ 100 mls/hr Q10H IV 02/29/20 20:00 03/02/20 12:08 Lactated Ringer's 1,000 ml @ 100 mls/hr Q10H IV 03/02/20 15:30 03/02/20 16:30 Lisinopril (Prinivil) 20 mg BID PO 02/29/20 21:00 03/01/20 10:26 DC 03/01/20 08:30 Lisinopril (Prinivil) 30 mg BID PO 03/01/20 21:00 03/02/20 08:24 Metoclopramide HCl (REGLAN INJection) 10 mg Q6HP PRN IV NAUSEA OR VOMITING 03/02/20 15:30 03/02/20 16:30 Morphine Sulfate (Morphine Sulfate Inj) 2 mg Q4H PRN IV MODERATE PAIN (PS 5-7) 02/29/20 13:00 03/01/20 20:03 Ondansetron HCl (ZOFRAN INJection) 4 mg Q4HP PRN IV NAUSEA OR VOMITING 02/29/20 13:00 02/29/20 14:18 Ondansetron HCl (ZOFRAN INJection) 4 mg Q4HP PRN IV NAUSEA OR VOMITING 03/02/20 15:30 03/02/20 16:30 Oxycodone/ Acetaminophen (Percocet 5mg/ 325mg Tablet) 1 tab ASDIRECTED PRN PO PAIN LEVEL 1-4 03/02/20 15:30 03/02/20 16:30 Piperacillin Sod/ Tazobactam Sod 3.375 gm/Dextrose 50 ml @ 50 mls/hr Q6H IV 02/29/20 17:00 03/01/20 02:33 DC 03/01/20 02:22 Piperacillin Sod/ Tazobactam Sod 3.375 gm/Dextrose 50 ml @ 50 mls/hr Q6H IV 03/01/20 08:00 03/02/20 08:24 Potassium Chloride 10 meq/ IV Miscellaneous Supplies 100 ml @ 100 mls/hr 0000,0100,0200,2300 IV 03/01/20 23:00 03/02/20 06:00 DC 03/02/20 01:57 Potassium Chloride 10 meq/ IV Miscellaneous Supplies 100 ml @ 100 mls/hr 0630,0730,0830 IV 03/01/20 06:30 03/01/20 12:30 DC 03/01/20 09:00 Potassium Chloride 10 meq/ IV Miscellaneous Supplies 100 ml @ 100 mls/hr 0930,1030 IV 03/01/20 09:30 03/01/20 14:30 DC 03/01/20 11:41 Potassium Chloride 10 meq/ IV Miscellaneous Supplies 100 ml @ 100 mls/hr Q1H IV 03/02/20 08:00 03/02/20 12:59 DC 03/02/20 12:08 Rosuvastatin Calcium (Crestor) 40 mg DAILY PO 02/29/20 09:00 03/02/20 08:24 Sodium Chloride 1,000 ml @ 100 mls/hr Q10H IV 02/29/20 13:00 02/29/20 19:19 DC 02/29/20 13:58 Allergies Coded Allergies: No Known Allergies (Unverified , 02/29/20) Krysta Hernández MD Mar 02, 2020 15:46
[2020-03-03] VITALS: BP 134/61
[2020-03-03] MEDS: PIPERACILLIN/TAZOBACTAM SOD 3.375 GM in D5W MINI-BAG PLUS 50 ML IV SCH ×4 (02:31→21:28)
[2020-03-03 04:59] LABS: BASO % 0.1 % (0.0-1.0); HEMATOCRIT 38.6 % (42.0-52.0); LYMPH # 0.5 10^3/uL (1.5-5.0); LYMPH % 3.4 % (24.0-44.0); MEAN CORPUSCULAR HEMOGLOBIN 30.2 pg (27.0-33.0); MEAN CORPUSCULAR HGB CONC 33.7 g/dl (32.0-36.5); MEAN CORPUSCULAR VOLUME 89.8 fl (80.0-96.0); MONO # 0.8 10^3/uL (0.0-0.8); MONO % 4.8 % (0.0-5.0); NEUTROPHILS # 14.3 10^3/uL (1.5-8.5); NEUTROPHILS % 91.2 % (36.0-66.0); PLATELET COUNT, AUTOMATED 194 10^3/uL (150-450); WHITE BLOOD COUNT 15.7 10^3/uL (4.0-10.0)
[2020-03-03 05:28] LABS: ALBUMIN 2.3 GM/DL (3.2-5.2); BILIRUBIN,TOTAL 1.3 MG/DL (0.2-1.0); CALCIUM LEVEL 8.4 MG/DL (8.8-10.2); CREATININE FOR GFR 1.63 MG/DL (0.70-1.30); GLOMERULAR FILTRATION RATE 43.9 (>42); MAGNESIUM LEVEL 2.1 MG/DL (1.8-2.4); POTASSIUM SERUM 3.7 MEQ/L (3.5-5.1); TOTAL PROTEIN 5.7 GM/DL (6.4-8.2)
[2020-03-03 06:00] VITALS: BP 141/73
[2020-03-03] MEDS: amLODIPine 10 MG TAB PO SCH (07:58)
[2020-03-03] MEDS: ASPIRIN 81 MG ENTERIC TAB PO SCH (07:58)
[2020-03-03] MEDS: ROSUVASTATIN 10 MG TAB (CRESTOR) PO SCH (07:59)
[2020-03-03] MEDS: lisinopriL 10 MG TAB PO SCH (07:59)
[2020-03-03] MEDS: CARVedilol 12.5 MG TAB PO SCH ×2 (07:59→21:00)
[2020-03-03] MEDS: DOCUSATE SODIUM 100 MG CAP PO SCH ×2 (08:00→21:27)
[2020-03-03] MEDS: LR 1,000 ML IV SCH (08:00)
--- NOTE | 2020-03-03 11:40 | IPNPDOC ---
Date Seen The patient was seen on 03/03/20. Progress Note SUBJECTIVE: Afebrile overnight, ERCP completed 03/02/20. Improved abdominal discomfort and tolerated diet this AM. Cr increased and was likely 2/2 to hypotension experienced after ERCP. Denies n/v/d, fevers, chills, shortness of breath, chest pain, abdominal pain this AM. OBJECTIVE: PHYSICAL EXAMINATION: VITAL SIGNS: please see below General: NAD, comfortable HEENT: PERRLA, EOMI, sclerae clear Neck: supple, normal ROM, no JVD Resp: lungs CTAB, no wheeze, no rales, no crackles CVS: RRR, normal S1, S2, no murmurs Abdo: soft, no masses, no hepatosplenomegaly, BS+, mild abdominal discomfort RUQ Extremities: no edema, pulses 2+ MSK: no joint deformities, normal ROM Neuro: no focal neuro deficits, moving all 4 extremities Psych: calm, cooperative, AAO x 3 LABORATORY DATA/MICROBIOLOGY: See below. IMAGING: ERCP: - The papilla is small and located completely inside a diverticulum - The proximal main bile duct was dilated and tapers smoothly in the mid portion, then is dilated again in the distal bile duct. - Choledocholithiasis (multiple) was found. - A biliary sphincterotomy was performed. - Partial removal was accomplished with lithotripsy and balloon sweep. Removal of stone and debris was incomplete - Lithotripsy was successful for stone fragmentation, but removal of stone and debris was incomplete - One temporary stent was placed into the common bile duct. - Cells for cytology were obtained by brushing in the middle third of the main bile duct. Liver US: 1. Dilatation of the common bile duct measuring 1 cm and this could be secondary to obstruction by a stone, stricture or small mass. Recommend CT scan and MRCP for further evaluation. 2. Thickening of the gallbladder wall at 5 mm and this could be secondary to cholecystitis. 3. Sludge and gallstones within the gallbladder. ASSESSMENT: 76 yo M with a hx of chronic atrial fibrillation (AC eliquis, pac timothy), CAD, HTN admitted for ascending cholangitis, choledocholithiasis with gallstone pancreatitis, possible cholecystitis, hypertensive urgency #Abdominal pain 2/2 to ascending cholangitis, choledocholithiasis with gallstone pancreatitis, possible cholecystitis, POD1 ERCP (see details of findings above) - Pain further improved today, afebrile overnight, WBC 15.7 - Continuing to improve: AST/ALT, ALP, bili - GI ( Dr. Crockett) was previously following, will need to f/u in office in 2 weeks. Repeat ERCP in 1-3 months for retreatment. Will likely need cholecystectomy after bile duct is cleared. - Bile duct brushings: neg for malignancy - F/u dailiy labs - C/w zosyn, daily labs, current diet, pain control #Hypotension s/p procedure, ERCP- resolved with IVFs -Currently hypertensive again. -resume BB, CCB antihypertensive medications. Hold ACEi BID . #Acute kidney injury likely 2/2 to hypotension above -Cr elevated 1.63, baseline is wnl -C/w IVFs at 100 cc/hr -F/u AM labs, avoid nephrotoxic meds. # Hypokalemia- resolved -K wnl this AM, s/p 60 mEq 03/02/20 -F/u repeat AM labs #Chronic afib - Rate controlled - C/w coreg 25 mg BID, eliquis 5 mg BID - Follows with Dr. Avendaño #Hx CAD - Patient had cath in 2013, s/p JAYE to [facility], noted complete RCA stenosis - Dr. Avendaño discussed case with hospitalist this admission - C/w ASA/statin/BB #Diastolic CHF - Last echo in 11/2018, showing normal EF, no valvular disease per Dr. Avendaño - C/w PO lasix, BB, CCB. Holding LIZBET i #Prediabetes -HbA1c 6.2 -ISS, consistent carb diet, hypoglycemia precautions # DVT ppx - Eliquis BID DISPOSITION: PT/OT. Plan is discharge home when medically Cr shown to be improved. . VS, I&O, 24H, Fishbone Vital Signs/I&O Vital Signs Date Time Temp Pulse Resp B/P (MAP) Pulse Ox O2 Delivery O2 Flow Rate FiO2 03/03/20 07:59 141/73 03/03/20 07:58 58 03/03/20 06:00 98.8 18 90 Nasal Cannula 1.0 I&O- Last 24 Hours up to 6 AM 03/03/20 06:00 Intake Total 3160 ml Output Total 1250 ml Balance 1910 ml Laboratory Data 24H LABS Laboratory Tests 2 9/24/20 04:32: Immature Granulocyte % (Auto) 0.5, Neutrophils (%) (Auto) 91.2H, Lymphocytes (%) (Auto) 3.4L, Monocytes (%) (Auto) 4.8, Eosinophils (%) (Auto) 0.0, Basophils (%) (Auto) 0.1, Neutrophils # (Auto) 14.3H, Lymphocytes # (Auto) 0.5L, Monocytes # (Auto) 0.8, Eosinophils # (Auto) 0.0, Basophils # (Auto) 0.0, Nucleated Red Blood Cells % (auto) 0.0, Anion Gap 9, Glomerular Filtration Rate 43.9, Calcium Level 8.4L, Magnesium Level 2.1, Total Bilirubin 1.3H, Aspartate Amino Transf (AST/SGOT) 68H, Alanine Aminotransferase (ALT/SGPT) 218H, Alkaline Phosphatase 214H, Total Protein 5.7L, Albumin 2.3L, Albumin/Globulin Ratio 0.7 CBC/BMP Laboratory Tests 03/02/20 15:51 03/03/20 04:32 Microbiology Microbiology 03/02/20 Blood Culture - Preliminary, Resulted No growth after 24 hours . All specim... 03/01/20 Blood Culture - Preliminary, Resulted No growth after 24 hours . All specim... Current Medications Current Medications Medications (Trade) Dose Ordered Sig/Jie Route PRN Reason Start Time Stop Time Status Last Admin Dose Admin Acetaminophen (Tylenol Suppository) 650 mg Q6HP PRN [place] PAIN / FEVER 03/02/20 08:00 03/02/20 08:16 DC Acetaminophen (Tylenol Tab) 650 mg Q6HP PRN PO PAIN / FEVER 03/02/20 08:15 03/02/20 08:26 Al Hydrox/Mg Hydrox/Simethicone (Mylanta) 30 ml DAILY PRN PO DYSPEPSIA 02/29/20 13:00 Amlodipine Besylate (Norvasc) 5 mg BID PO 02/29/20 21:00 03/01/20 10:26 DC 03/01/20 08:30 Amlodipine Besylate (Norvasc) 10 mg DAILY PO 03/02/20 09:00 03/03/20 07:58 Apixaban (Eliquis) 5 mg BID PO 02/29/20 21:00 02/29/20 18:42 DC Aspirin (Ecotrin) 81 mg DAILY PO 02/29/20 09:00 03/03/20 07:58 Carvedilol (COReg) 25 mg BID PO 02/29/20 21:00 02/29/20 20:02 DC Carvedilol (COReg) 25 mg BID PO 03/01/20 09:00 03/02/20 20:13 Docusate Sodium (Colace) 100 mg BID PO 02/29/20 21:00 03/03/20 08:00 Fentanyl Citrate (Sublimaze) 25 mcg Q5MP PRN IV PAIN LEVEL 5-10 03/02/20 15:30 03/02/20 16:30 DC Furosemide (Lasix) 40 mg Q48H PO 02/29/20 09:00 03/02/20 08:22 Home Med (Med Rec Complete!) ASDIRECTED XX 02/29/20 14:00 02/29/20 13:55 DC Hydralazine HCl (Apresoline) 10 mg Q8HP PRN IV systolic bp >180 mmHg 03/01/20 10:30 03/02/20 18:47 DC Influenza Virus Vaccine (Flublok Quad(Egg-Free)18y&Older Influenza) 0.5 ml ONCE PRN IM SEE LABEL COMMENTS 02/29/20 15:30 Labetalol HCl (Normodyne, Trandate) 10 mg NOW IV 02/29/20 18:45 02/29/20 18:46 DC 02/29/20 18:48 Labetalol HCl (Normodyne, Trandate) 10 mg Q6H PRN IV SBP > 180 MMHG 02/29/20 13:15 03/01/20 07:51 DC 02/29/20 23:04 Labetalol HCl (Normodyne, Trandate) 20 mg STAT STAT IV 02/29/20 17:12 02/29/20 17:13 DC 02/29/20 17:19 Labetalol HCl 200 mg/Dextrose 200 ml @ 30 mls/hr Q6H40M IV 02/29/20 21:00 03/01/20 07:51 DC 03/01/20 05:20 Lactated Ringer's 1,000 ml @ 100 mls/hr Q10H IV 02/29/20 20:00 03/02/20 21:34 Lactated Ringer's 1,000 ml @ 100 mls/hr Q10H IV 03/02/20 15:30 03/02/20 16:30 DC Lisinopril (Prinivil) 20 mg BID PO 02/29/20 21:00 03/01/20 10:26 DC 03/01/20 08:30 Lisinopril (Prinivil) 30 mg BID PO 03/01/20 21:00 03/03/20 07:59 Metoclopramide HCl (REGLAN INJection) 10 mg Q6HP PRN IV NAUSEA OR VOMITING 03/02/20 15:30 03/02/20 16:30 DC Morphine Sulfate (Morphine Sulfate Inj) 2 mg Q4H PRN IV MODERATE PAIN (PS 5-7) 02/29/20 13:00 03/01/20 20:03 Ondansetron HCl (ZOFRAN INJection) 4 mg Q4HP PRN IV NAUSEA OR VOMITING 02/29/20 13:00 02/29/20 14:18 Ondansetron HCl (ZOFRAN INJection) 4 mg Q4HP PRN IV NAUSEA OR VOMITING 03/02/20 15:30 03/02/20 16:30 DC Oxycodone/ Acetaminophen (Percocet 5mg/ 325mg Tablet) 1 tab ASDIRECTED PRN PO PAIN LEVEL 1-4 03/02/20 15:30 03/02/20 16:30 DC Piperacillin Sod/ Tazobactam Sod 3.375 gm/Dextrose 50 ml @ 50 mls/hr Q6H IV 02/29/20 17:00 03/01/20 02:33 DC 03/01/20 02:22 Piperacillin Sod/ Tazobactam Sod 3.375 gm/Dextrose 50 ml @ 50 mls/hr Q6H IV 03/01/20 08:00 03/03/20 08:00 Potassium Chloride 10 meq/ IV Miscellaneous Supplies 100 ml @ 100 mls/hr 0000,0100,0200,2300 IV 03/01/20 23:00 03/02/20 06:00 DC 03/02/20 01:57 Potassium Chloride 10 meq/ IV Miscellaneous Supplies 100 ml @ 100 mls/hr 0630,0730,0830 IV 03/01/20 06:30 03/01/20 12:30 DC 03/01/20 09:00 Potassium Chloride 10 meq/ IV Miscellaneous Supplies 100 ml @ 100 mls/hr 0930,1030 IV 03/01/20 09:30 03/01/20 14:30 DC 03/01/20 11:41 Potassium Chloride 10 meq/ IV Miscellaneous Supplies 100 ml @ 100 mls/hr Q1H IV 03/02/20 08:00 03/02/20 12:59 DC 03/02/20 12:08 Rosuvastatin Calcium (Crestor) 40 mg DAILY PO 02/29/20 09:00 03/03/20 07:59 Sodium Chloride 1,000 ml @ 100 mls/hr Q10H IV 02/29/20 13:00 02/29/20 19:19 DC 02/29/20 13:58 Allergies Coded Allergies: No Known Allergies (Unverified , 02/29/20) Krysta Hernández MD Mar 03, 2020 11:40
[2020-03-03] MEDS: APIXABAN 5 MG TAB (ELIQUIS) PO SCH ×2 (13:02→21:27)
[2020-03-03 14:00] VITALS: BP 142/71
[2020-03-03 20:53] VITALS: BP 150/59
[2020-03-03] MEDS: ONDANSETRON 4MG/2ML VIAL IV PRN (21:27)
[2020-03-03 22:45] VITALS: BP 153/61
[2020-03-04] MEDS: ACETAMINOPHEN TAB 650MG DOSE (2X325MG) PO PRN (01:22)
[2020-03-04] MEDS: PIPERACILLIN/TAZOBACTAM SOD 3.375 GM in D5W MINI-BAG PLUS 50 ML IV SCH ×4 (01:22→20:15)
[2020-03-04 06:00] VITALS: BP 146/63
[2020-03-04 08:01] LABS: BASO % 0.2 % (0.0-1.0); EOS % 0.1 % (0.0-3.0); HEMOGLOBIN 13.5 g/dl (13.5-17.5); LYMPH # 0.7 10^3/uL (1.5-5.0); LYMPH % 4.4 % (24.0-44.0); MEAN CORPUSCULAR HEMOGLOBIN 29.9 pg (27.0-33.0); MEAN CORPUSCULAR HGB CONC 33.8 g/dl (32.0-36.5); MEAN CORPUSCULAR VOLUME 88.7 fl (80.0-96.0); MONO # 1.2 10^3/uL (0.0-0.8); MONO % 7.7 % (0.0-5.0); NEUTROPHILS # 13.9 10^3/uL (1.5-8.5); NEUTROPHILS % 86.7 % (36.0-66.0); PLATELET COUNT, AUTOMATED 270 10^3/uL (150-450); RED BLOOD COUNT 4.51 10^6/uL (4.30-6.10); WHITE BLOOD COUNT 16.1 10^3/uL (4.0-10.0)
[2020-03-04] MEDS: APIXABAN 5 MG TAB (ELIQUIS) PO SCH ×2 (08:03→20:15)
[2020-03-04] MEDS: ROSUVASTATIN 10 MG TAB (CRESTOR) PO SCH (08:03)
[2020-03-04] MEDS: DOCUSATE SODIUM 100 MG CAP PO SCH ×2 (08:04→20:15)
[2020-03-04] MEDS: ASPIRIN 81 MG ENTERIC TAB PO SCH (08:04)
[2020-03-04] MEDS: CARVedilol 12.5 MG TAB PO SCH ×3 (08:04→20:28)
[2020-03-04] MEDS: FUROSEMIDE 40 MG TAB PO SCH (08:04)
[2020-03-04] MEDS: amLODIPine 10 MG TAB PO SCH (08:04)
[2020-03-04 08:26] LABS: ALBUMIN 2.4 GM/DL (3.2-5.2); BILIRUBIN,TOTAL 0.9 MG/DL (0.2-1.0); CALCIUM LEVEL 8.6 MG/DL (8.8-10.2); CREATININE FOR GFR 1.64 MG/DL (0.70-1.30); GLOMERULAR FILTRATION RATE 43.6 (>42); MAGNESIUM LEVEL 2.3 MG/DL (1.8-2.4); POTASSIUM SERUM 3.1 MEQ/L (3.5-5.1); TOTAL PROTEIN 5.9 GM/DL (6.4-8.2)
[2020-03-04] MEDS ORDERED: POTASSIUM CHLORIDE 10 MEQ SR TABLET PO ONE (09:00)
[2020-03-04] MEDS: NS 1,000 ML IV SCH ×3 (10:18→20:18)
--- NOTE | 2020-03-04 12:10 | IPNPDOC ---
Date Seen The patient was seen on 03/04/20. Progress Note SUBJECTIVE: Cr still elevated, restarted IVFs. WBC increased without clinical picture worsening. Discussed with GI, agree to see how patient does overnight and tomorrow's labs. Patient has no complaints, is tolerating diet well. Denies n/v/d, fevers, chills, shortness of breath, chest pain, abdominal pain this AM. OBJECTIVE: PHYSICAL EXAMINATION: VITAL SIGNS: please see below General: NAD, comfortable, resting comfortable HEENT: PERRLA, EOMI, sclerae clear Neck: supple, normal ROM, no JVD Resp: lungs CTAB, no wheeze, no rales, no crackles CVS: RRR, normal S1, S2, no murmurs Abdo: soft, no masses, no hepatosplenomegaly, BS+, no abdominal discomfort or pain Extremities: no edema, pulses 2+ MSK: no joint deformities, normal ROM Neuro: no focal neuro deficits, moving all 4 extremities Psych: calm, cooperative, AAO x 3 LABORATORY DATA/MICROBIOLOGY: See below. BCX x2: NG IMAGING: ERCP: - The papilla is small and located completely inside a diverticulum - The proximal main bile duct was dilated and tapers smoothly in the mid portion, then is dilated again in the distal bile duct. - Choledocholithiasis (multiple) was found. - A biliary sphincterotomy was performed. - Partial removal was accomplished with lithotripsy and balloon sweep. Removal of stone and debris was incomplete - Lithotripsy was successful for stone fragmentation, but removal of stone and debris was incomplete - One temporary stent was placed into the common bile duct. - Cells for cytology were obtained by brushing in the middle third of the main bile duct. Liver US: 1. Dilatation of the common bile duct measuring 1 cm and this could be secondary to obstruction by a stone, stricture or small mass. Recommend CT scan and MRCP for further evaluation. 2. Thickening of the gallbladder wall at 5 mm and this could be secondary to cholecystitis. 3. Sludge and gallstones within the gallbladder. ASSESSMENT: 76 yo M with a hx of chronic atrial fibrillation (AC eliquis, pacemaker), CAD, HTN admitted for ascending cholangitis, choledocholithiasis with gallstone pancreatitis, possible cholecystitis, hypertensive urgency #Abdominal pain 2/2 to ascending cholangitis, choledocholithiasis with gallstone pancreatitis, possible cholecystitis, POD2 ERCP (see details of findings above) - Resolved pain, afebrile overnight, WBC slightly worsened at 16.1. Clinical picture not worsened. - AST/ALT/alk phos increased but Bili wnl. Unknown cause as to change in bump in numbers. - Discussed changes in labs wit Dr. Crockett who agrees that we should watch overnight and see what AM labs show, clinical picture. - GI ( Dr. Crockett) was previously following, will need to f/u in office in 2 weeks. Repeat ERCP in 1-3 months for retreatment. Will likely need cholecystectomy after bile duct is cleared. - Bile duct brushings: neg for malignancy - F/u daily labs - C/w zosyn, daily labs, current diet #Acute kidney injury likely 2/2 to hypotension above -Cr elevated still at 1.64, baseline is wnl -Restarted IVFs at 100 cc/hr -D/deepali ACEi BID -F/u AM labs, avoid nephrotoxic meds. # Hypokalemia -K 3.1 this AM, given 50 mEq today -F/u repeat AM labs #HTN. -BP stable -Recent episode of hypotension s/p procedure, ERCP- resolved with IVFs -C/w BB, CCB antihypertensive medications. Hold ACEi BID due to GE . #Chronic afib - Rate controlled - C/w coreg 25 mg BID, eliquis 5 mg BID - Follows with Dr. Avendaño #Hx CAD - Patient had cath in 2013, s/p JAYE to [facility], noted complete RCA stenosis - Dr. Avendaño discussed case with hospitalist this admission - C/w ASA/statin/BB #Diastolic CHF - Last echo in 11/2018, showing normal EF, no valvular disease per Dr. Avendaño - C/w PO lasix Q48 hrs, BB, CCB. Holding LIZBET i #Prediabetes -HbA1c 6.2 -ISS, consistent carb diet, hypoglycemia precautions # DVT ppx - Eliquis BID DISPOSITION: PT/OT. Plan is discharge home when medically Cr shown to be improved. VS, I&O, 24H, Fishbone Vital Signs/I&O Vital Signs Date Time Temp Pulse Resp B/P (MAP) Pulse Ox O2 Delivery O2 Flow Rate FiO2 03/04/20 08:04 50 146/63 03/04/20 06:00 98.2 18 95 Nasal Cannula 1.0 I&O- Last 24 Hours up to 6 AM 03/04/20 06:00 Intake Total 1910 ml Output Total 1700 ml Balance 210 ml Laboratory Data 24H LABS Laboratory Tests 2 03/04/20 07:21: Immature Granulocyte % (Auto) 0.9, Neutrophils (%) (Auto) 86.7H, Lymphocytes (%) (Auto) 4.4L, Monocytes (%) (Auto) 7.7H, Eosinophils (%) (Auto) 0.1, Basophils (%) (Auto) 0.2, Neutrophils # (Auto) 13.9H, Lymphocytes # (Auto) 0.7L, Monocytes # (Auto) 1.2H, Eosinophils # (Auto) 0.0, Basophils # (Auto) 0.0, Nucleated Red Blood Cells % (auto) 0.0, Anion Gap 9, Glomerular Filtration Rate 43.6, Calcium Level 8.6L, Magnesium Level 2.3, Total Bilirubin 0.9, Aspartate Amino Transf (AST/SGOT) 168H, Alanine Aminotransferase (ALT/SGPT) 253H, Alkaline Phosphatase 237H, Total Protein 5.9L, Albumin 2.4L, Albumin/Globulin Ratio 0.7 CBC/BMP Laboratory Tests 03/04/20 07:21 Microbiology Microbiology 03/02/20 Blood Culture - Preliminary, Resulted No Growth after 48 hours. All Specime... 03/01/20 Blood Culture - Preliminary, Resulted No Growth after 48 hours. All Specime... Current Medications Current Medications Medications (Trade) Dose Ordered Sig/Jie Route PRN Reason Start Time Stop Time Status Last Admin Dose Admin Acetaminophen (Tylenol Suppository) 650 mg Q6HP PRN [place] PAIN / FEVER 03/02/20 08:00 03/02/20 08:16 DC Acetaminophen (Tylenol Tab) 650 mg Q6HP PRN PO PAIN / FEVER 03/02/20 08:15 03/04/20 01:22 Al Hydrox/Mg Hydrox/Simethicone (Mylanta) 30 ml DAILY PRN PO DYSPEPSIA 02/29/20 13:00 03/04/20 01:22 Amlodipine Besylate (Norvasc) 5 mg BID PO 02/29/20 21:00 03/01/20 10:26 DC 03/01/20 08:30 Amlodipine Besylate (Norvasc) 10 mg DAILY PO 03/02/20 09:00 03/04/20 08:04 Apixaban (Eliquis) 5 mg BID PO 02/29/20 21:00 02/29/20 18:42 DC Apixaban (Eliquis) 5 mg BID PO 03/03/20 09:00 03/04/20 08:03 Aspirin (Ecotrin) 81 mg DAILY PO 02/29/20 09:00 03/04/20 08:04 Carvedilol (COReg) 25 mg BID PO 02/29/20 21:00 02/29/20 20:02 DC Carvedilol (COReg) 25 mg BID PO 03/01/20 09:00 03/04/20 08:04 Docusate Sodium (Colace) 100 mg BID PO 02/29/20 21:00 03/04/20 08:04 Fentanyl Citrate (Sublimaze) 25 mcg Q5MP PRN IV PAIN LEVEL 5-10 03/02/20 15:30 03/02/20 16:30 DC Furosemide (Lasix) 40 mg Q48H PO 02/29/20 09:00 03/04/20 08:04 Home Med (Med Rec Complete!) ASDIRECTED XX 02/29/20 14:00 02/29/20 13:55 DC Hydralazine HCl (Apresoline) 10 mg Q8HP PRN IV systolic bp >180 mmHg 03/01/20 10:30 03/02/20 18:47 DC Influenza Virus Vaccine (Flublok Quad(Egg-Free)18y&Older Influenza) 0.5 ml ONCE PRN IM SEE LABEL COMMENTS 02/29/20 15:30 Labetalol HCl (Normodyne, Trandate) 10 mg NOW IV 02/29/20 18:45 02/29/20 18:46 DC 02/29/20 18:48 Labetalol HCl (Normodyne, Trandate) 10 mg Q6H PRN IV SBP > 180 MMHG 02/29/20 13:15 03/01/20 07:51 DC 02/29/20 23:04 Labetalol HCl (Normodyne, Trandate) 20 mg STAT STAT IV 02/29/20 17:12 02/29/20 17:13 DC 02/29/20 17:19 Labetalol HCl 200 mg/Dextrose 200 ml @ 30 mls/hr Q6H40M IV 02/29/20 21:00 03/01/20 07:51 DC 03/01/20 05:20 Lactated Ringer's 1,000 ml @ 100 mls/hr Q10H IV 02/29/20 20:00 03/03/20 16:55 DC 03/02/20 21:34 Lactated Ringer's 1,000 ml @ 100 mls/hr Q10H IV 03/02/20 15:30 03/02/20 16:30 DC Lisinopril (Prinivil) 20 mg BID PO 02/29/20 21:00 03/01/20 10:26 DC 03/01/20 08:30 Lisinopril (Prinivil) 30 mg BID PO 03/01/20 21:00 03/03/20 11:56 DC 03/03/20 07:59 Metoclopramide HCl (REGLAN INJection) 10 mg Q6HP PRN IV NAUSEA OR VOMITING 03/02/20 15:30 03/02/20 16:30 DC Morphine Sulfate (Morphine Sulfate Inj) 2 mg Q4H PRN IV MODERATE PAIN (PS 5-7) 02/29/20 13:00 03/01/20 20:03 Ondansetron HCl (ZOFRAN INJection) 4 mg Q4HP PRN IV NAUSEA OR VOMITING 02/29/20 13:00 03/03/20 21:27 Ondansetron HCl (ZOFRAN INJection) 4 mg Q4HP PRN IV NAUSEA OR VOMITING 03/02/20 15:30 03/02/20 16:30 DC Oxycodone/ Acetaminophen (Percocet 5mg/ 325mg Tablet) 1 tab ASDIRECTED PRN PO PAIN LEVEL 1-4 03/02/20 15:30 03/02/20 16:30 DC Piperacillin Sod/ Tazobactam Sod 3.375 gm/Dextrose 50 ml @ 50 mls/hr Q6H IV 02/29/20 17:00 03/01/20 02:33 DC 03/01/20 02:22 Piperacillin Sod/ Tazobactam Sod 3.375 gm/Dextrose 50 ml @ 50 mls/hr Q6H IV 03/01/20 08:00 03/04/20 08:03 Potassium Chloride 10 meq/ IV Miscellaneous Supplies 100 ml @ 100 mls/hr 0000,0100,0200,2300 IV 03/01/20 23:00 03/02/20 06:00 DC 03/02/20 01:57 Potassium Chloride 10 meq/ IV Miscellaneous Supplies 100 ml @ 100 mls/hr 0630,0730,0830 IV 03/01/20 06:30 03/01/20 12:30 DC 03/01/20 09:00 Potassium Chloride 10 meq/ IV Miscellaneous Supplies 100 ml @ 100 mls/hr 0930,1030 IV 03/01/20 09:30 03/01/20 14:30 DC 03/01/20 11:41 Potassium Chloride 10 meq/ IV Miscellaneous Supplies 100 ml @ 100 mls/hr Q1H IV 03/02/20 08:00 03/02/20 12:59 DC 03/02/20 12:08 Rosuvastatin Calcium (Crestor) 40 mg DAILY PO 02/29/20 09:00 03/04/20 08:03 Sodium Chloride 1,000 ml @ 100 mls/hr Q10H IV 02/29/20 13:00 02/29/20 19:19 DC 02/29/20 13:58 Sodium Chloride 1,000 ml @ 100 mls/hr Q10H IV 03/04/20 09:00 03/04/20 10:18 Allergies Coded Allergies: No Known Allergies (Unverified , 02/29/20) Krysta Hernández MD Mar 04, 2020 12:10
[2020-03-04 14:00] VITALS: BP 144/63
[2020-03-04 22:00] VITALS: BP 162/72
[2020-03-05] MEDS: PIPERACILLIN/TAZOBACTAM SOD 3.375 GM in D5W MINI-BAG PLUS 50 ML IV SCH ×4 (01:42→20:01)
[2020-03-05] MEDS: NS 1,000 ML IV SCH (05:34)
[2020-03-05] MEDS: ACETAMINOPHEN TAB 650MG DOSE (2X325MG) PO PRN ×2 (05:43→20:09)
[2020-03-05 06:00] VITALS: BP 153/74
[2020-03-05 06:21] LABS: BASO % 0.2 % (0.0-1.0); EOS % 0.1 % (0.0-3.0); HEMATOCRIT 38.7 % (42.0-52.0); HEMOGLOBIN 13.1 g/dl (13.5-17.5); LYMPH # 0.8 10^3/uL (1.5-5.0); LYMPH % 5.2 % (24.0-44.0); MEAN CORPUSCULAR HEMOGLOBIN 29.8 pg (27.0-33.0); MEAN CORPUSCULAR HGB CONC 33.9 g/dl (32.0-36.5); MONO # 1.4 10^3/uL (0.0-0.8); MONO % 9.6 % (0.0-5.0); NEUTROPHILS % 83.2 % (36.0-66.0); PLATELET COUNT, AUTOMATED 228 10^3/uL (150-450); WHITE BLOOD COUNT 14.4 10^3/uL (4.0-10.0)
[2020-03-05 06:50] LABS: ALBUMIN 2.1 GM/DL (3.2-5.2); CALCIUM LEVEL 8.3 MG/DL (8.8-10.2); CREATININE FOR GFR 1.5 MG/DL (0.70-1.30); GLOMERULAR FILTRATION RATE 48.3 (>42); POTASSIUM SERUM 2.7 MEQ/L (3.5-5.1); TOTAL PROTEIN 6.3 GM/DL (6.4-8.2)
[2020-03-05] MEDS ORDERED: POTASSIUM CHLORIDE 10 MEQ SR TABLET PO ONE ×2 (08:15→13:45)
[2020-03-05] MEDS: ASPIRIN 81 MG ENTERIC TAB PO SCH (08:29)
[2020-03-05] MEDS: DOCUSATE SODIUM 100 MG CAP PO SCH ×2 (08:29→20:08)
[2020-03-05] MEDS: ROSUVASTATIN 10 MG TAB (CRESTOR) PO SCH (08:29)
[2020-03-05] MEDS: amLODIPine 10 MG TAB PO SCH (08:30)
[2020-03-05] MEDS: CARVedilol 12.5 MG TAB PO SCH ×2 (08:30→20:08)
[2020-03-05] MEDS: APIXABAN 5 MG TAB (ELIQUIS) PO SCH ×2 (08:30→20:08)
[2020-03-05 14:00] VITALS: BP 194/85
[2020-03-05 14:05] VITALS: BP 170/78
[2020-03-05 14:28] VITALS: BP 170/88
--- NOTE | 2020-03-05 16:00 | IPNPDOC ---
Date Seen The patient was seen on 03/05/20. Progress Note SUBJECTIVE: BP elevated 170-190 systolic, decreased IVFs and made low sodium diet. Cr still elevated, but improving. WBC slightly improved. Patient has no complaints, is tolerating diet well. Denies n/v/d, fevers, chills, shortness of breath, chest pain, abdominal pain this AM. OBJECTIVE: PHYSICAL EXAMINATION: VITAL SIGNS: please see below General: NAD, comfortable, resting comfortable HEENT: PERRLA, EOMI, sclerae clear Neck: supple, normal ROM, no JVD Resp: lungs CTAB, no wheeze, no rales, no crackles CVS: RRR, normal S1, S2, no murmurs Abdo: soft, no masses, no hepatosplenomegaly, BS+, no abdominal discomfort or pain Extremities: no edema, pulses 2+ MSK: no joint deformities, normal ROM Neuro: no focal neuro deficits, moving all 4 extremities Psych: calm, cooperative, AAO x 3 LABORATORY DATA/MICROBIOLOGY: See below. BCX x2: NG IMAGING: ERCP: - The papilla is small and located completely inside a diverticulum - The proximal main bile duct was dilated and tapers smoothly in the mid portion, then is dilated again in the distal bile duct. - Choledocholithiasis (multiple) was found. - A biliary sphincterotomy was performed. - Partial removal was accomplished with lithotripsy and balloon sweep. Removal of stone and debris was incomplete - Lithotripsy was successful for stone fragmentation, but removal of stone and debris was incomplete - One temporary stent was placed into the common bile duct. - Cells for cytology were obtained by brushing in the middle third of the main bile duct. Liver US: 1. Dilatation of the common bile duct measuring 1 cm and this could be secondary to obstruction by a stone, stricture or small mass. Recommend CT scan and MRCP for further evaluation. 2. Thickening of the gallbladder wall at 5 mm and this could be secondary to cholecystitis. 3. Sludge and gallstones within the gallbladder. ASSESSMENT: 76 yo M with a hx of chronic atrial fibrillation (AC eliquis, pacemaker), CAD, HTN admitted for ascending cholangitis, choledocholithiasis with gallstone pancreatitis, possible cholecystitis, hypertensive urgency #Abdominal pain 2/2 to ascending cholangitis, choledocholithiasis with gallstone pancreatitis, possible cholecystitis, POD2 ERCP (see details of findings above) - WBC slightly improved at 14.4, improved clinical picture - AST/ALT/alk phos improving - Bile duct brushings: neg for malignancy - F/u daily labs - C/w zosyn, daily labs, current diet - GI (Dr. Crockett) was previously following. Directions for discharge will be: F/u in office in 2 weeks. Repeat ERCP in 1-3 months for retreatment. Will likely need cholecystectomy after bile duct is cleared. #Acute kidney injury likely 2/2 to hypotension above -Cr improved slightly to 1.5 from 1.64, baseline is wnl -Decreased IVFs to 75 cc/hr -Holding home ACEi BID -F/u AM labs, avoid nephrotoxic meds. # Hypokalemia -K 2.1 this AM, gave 40 mEq. Repeat 2.9 and given additional 60 mEq later in the afternoon -F/u repeat AM labs #HTN. -BP uncontrolled -Recent episode of hypotension s/p procedure, ERCP- resolved with IVFs -Decreased IVFs, low sodium diet -C/w BB, CCB antihypertensive medications. Hold ACEi BID due to GE . #Chronic afib - Rate controlled - C/w coreg 25 mg BID, eliquis 5 mg BID - Follows with Dr. Avendaño #Hx CAD - Patient had cath in 2013, s/p JAYE to [facility], noted complete RCA stenosis - Dr. Avendaño discussed case with hospitalist this admission - C/w ASA/statin/BB #Diastolic CHF - Last echo in 11/2018, showing normal EF, no valvular disease per Dr. Avendaño - C/w PO lasix Q48 hrs, BB, CCB. Holding ACEi BID #Prediabetes -HbA1c 6.2 -ISS, consistent carb diet, hypoglycemia precautions # DVT ppx - Eliquis BID DISPOSITION: PT/OT. Plan is discharge home when medically Cr shown to be improved. VS, I&O, 24H, Fishbone Vital Signs/I&O Vital Signs Date Time Temp Pulse Resp B/P (MAP) Pulse Ox O2 Delivery O2 Flow Rate FiO2 03/05/20 14:28 170/88 (115) 03/05/20 14:00 98.6 55 16 95 Room Air 03/04/20 14:00 1.0 I&O- Last 24 Hours up to 6 AM 03/05/20 06:00 Intake Total 1810 ml Output Total 3800 ml Balance -1990 ml Laboratory Data 24H LABS Laboratory Tests 2 03/05/20 06:10: Immature Granulocyte % (Auto) 1.7, Neutrophils (%) (Auto) 83.2H, Lymphocytes (%) (Auto) 5.2L, Monocytes (%) (Auto) 9.6H, Eosinophils (%) (Auto) 0.1, Basophils (%) (Auto) 0.2, Neutrophils # (Auto) 12.0H, Lymphocytes # (Auto) 0.8L, Monocytes # (Auto) 1.4H, Eosinophils # (Auto) 0.0, Basophils # (Auto) 0.0, Nucleated Red Blood Cells % (auto) 0.0, Anion Gap 8, Glomerular Filtration Rate 48.3, Calcium Level 8.3L, Magnesium Level 2.0, Total Bilirubin 1.0, Aspartate Amino Transf (AST/SGOT) 99H, Alanine Aminotransferase (ALT/SGPT) 190H, Alkaline Phosphatase 213H, Total Protein 6.3L, Albumin 2.1L, Albumin/Globulin Ratio 0.5 CBC/BMP Laboratory Tests 03/05/20 06:10 03/05/20 10:51 Microbiology Microbiology 03/02/20 Blood Culture - Preliminary, Resulted No Growth after 72 hours. All specime... 03/01/20 Blood Culture - Preliminary, Resulted No Growth after 72 hours. All specime... Current Medications Current Medications Medications (Trade) Dose Ordered Sig/Jie Route PRN Reason Start Time Stop Time Status Last Admin Dose Admin Acetaminophen (Tylenol Suppository) 650 mg Q6HP PRN [place] PAIN / FEVER 03/02/20 08:00 03/02/20 08:16 DC Acetaminophen (Tylenol Tab) 650 mg Q6HP PRN PO PAIN / FEVER 03/02/20 08:15 03/05/20 05:43 Al Hydrox/Mg Hydrox/Simethicone (Mylanta) 30 ml DAILY PRN PO DYSPEPSIA 02/29/20 13:00 03/04/20 01:22 Amlodipine Besylate (Norvasc) 5 mg BID PO 02/29/20 21:00 03/01/20 10:26 DC 03/01/20 08:30 Amlodipine Besylate (Norvasc) 10 mg DAILY PO 03/02/20 09:00 03/05/20 08:30 Apixaban (Eliquis) 5 mg BID PO 02/29/20 21:00 02/29/20 18:42 DC Apixaban (Eliquis) 5 mg BID PO 03/03/20 09:00 03/05/20 08:30 Aspirin (Ecotrin) 81 mg DAILY PO 02/29/20 09:00 03/05/20 08:29 Carvedilol (COReg) 25 mg BID PO 02/29/20 21:00 02/29/20 20:02 DC Carvedilol (COReg) 25 mg BID PO 03/01/20 09:00 03/04/20 20:28 Docusate Sodium (Colace) 100 mg BID PO 02/29/20 21:00 03/05/20 08:29 Fentanyl Citrate (Sublimaze) 25 mcg Q5MP PRN IV PAIN LEVEL 5-10 03/02/20 15:30 03/02/20 16:30 DC Furosemide (Lasix) 40 mg Q48H PO 02/29/20 09:00 03/04/20 08:04 Home Med (Med Rec Complete!) ASDIRECTED XX 02/29/20 14:00 02/29/20 13:55 DC Hydralazine HCl (Apresoline) 10 mg Q8HP PRN IV systolic bp >180 mmHg 03/01/20 10:30 03/02/20 18:47 DC Influenza Virus Vaccine (Flublok Quad(Egg-Free)18y&Older Influenza) 0.5 ml ONCE PRN IM SEE LABEL COMMENTS 02/29/20 15:30 Labetalol HCl (Normodyne, Trandate) 10 mg NOW IV 02/29/20 18:45 02/29/20 18:46 DC 02/29/20 18:48 Labetalol HCl (Normodyne, Trandate) 10 mg Q6H PRN IV SBP > 180 MMHG 02/29/20 13:15 03/01/20 07:51 DC 02/29/20 23:04 Labetalol HCl (Normodyne, Trandate) 20 mg STAT STAT IV 02/29/20 17:12 02/29/20 17:13 DC 02/29/20 17:19 Labetalol HCl 200 mg/Dextrose 200 ml @ 30 mls/hr Q6H40M IV 02/29/20 21:00 03/01/20 07:51 DC 03/01/20 05:20 Lactated Ringer's 1,000 ml @ 100 mls/hr Q10H IV 02/29/20 20:00 03/03/20 16:55 DC 03/02/20 21:34 Lactated Ringer's 1,000 ml @ 100 mls/hr Q10H IV 03/02/20 15:30 03/02/20 16:30 DC Lisinopril (Prinivil) 20 mg BID PO 02/29/20 21:00 03/01/20 10:26 DC 03/01/20 08:30 Lisinopril (Prinivil) 30 mg BID PO 03/01/20 21:00 03/03/20 11:56 DC 03/03/20 07:59 Metoclopramide HCl (REGLAN INJection) 10 mg Q6HP PRN IV NAUSEA OR VOMITING 03/02/20 15:30 03/02/20 16:30 DC Morphine Sulfate (Morphine Sulfate Inj) 2 mg Q4H PRN IV MODERATE PAIN (PS 5-7) 02/29/20 13:00 03/01/20 20:03 Ondansetron HCl (ZOFRAN INJection) 4 mg Q4HP PRN IV NAUSEA OR VOMITING 02/29/20 13:00 03/03/20 21:27 Ondansetron HCl (ZOFRAN INJection) 4 mg Q4HP PRN IV NAUSEA OR VOMITING 03/02/20 15:30 03/02/20 16:30 DC Oxycodone/ Acetaminophen (Percocet 5mg/ 325mg Tablet) 1 tab ASDIRECTED PRN PO PAIN LEVEL 1-4 03/02/20 15:30 03/02/20 16:30 DC Piperacillin Sod/ Tazobactam Sod 3.375 gm/Dextrose 50 ml @ 50 mls/hr Q6H IV 02/29/20 17:00 03/01/20 02:33 DC 03/01/20 02:22 Piperacillin Sod/ Tazobactam Sod 3.375 gm/Dextrose 50 ml @ 50 mls/hr Q6H IV 03/01/20 08:00 03/05/20 14:18 Potassium Chloride 10 meq/ IV Miscellaneous Supplies 100 ml @ 100 mls/hr 0000,0100,0200,2300 IV 03/01/20 23:00 03/02/20 06:00 DC 03/02/20 01:57 Potassium Chloride 10 meq/ IV Miscellaneous Supplies 100 ml @ 100 mls/hr 0630,0730,0830 IV 03/01/20 06:30 03/01/20 12:30 DC 03/01/20 09:00 Potassium Chloride 10 meq/ IV Miscellaneous Supplies 100 ml @ 100 mls/hr 0930,1030 IV 03/01/20 09:30 03/01/20 14:30 DC 03/01/20 11:41 Potassium Chloride 10 meq/ IV Miscellaneous Supplies 100 ml @ 100 mls/hr Q1H IV 03/02/20 08:00 03/02/20 12:59 DC 03/02/20 12:08 Rosuvastatin Calcium (Crestor) 40 mg DAILY PO 02/29/20 09:00 03/05/20 08:29 Sodium Chloride 1,000 ml @ 75 mls/hr [id number] IV 03/04/20 09:00 03/05/20 05:34 Sodium Chloride 1,000 ml @ 100 mls/hr Q10H IV 02/29/20 13:00 02/29/20 19:19 DC 02/29/20 13:58 Allergies Coded Allergies: No Known Allergies (Unverified , 02/29/20) Krysta Hernández MD Mar 05, 2020 16:00
[2020-03-05 22:00] VITALS: BP 176/74
[2020-03-06] MEDS: PIPERACILLIN/TAZOBACTAM SOD 3.375 GM in D5W MINI-BAG PLUS 50 ML IV SCH ×2 (01:11→08:18)
[2020-03-06] MEDS: NS 1,000 ML IV SCH (05:42)
[2020-03-06 06:00] VITALS: BP 164/78
[2020-03-06 06:59] LABS: BASO % 0.1 % (0.0-1.0); EOS # 0.1 10^3/uL (0.0-0.5); EOS % 0.4 % (0.0-3.0); HEMATOCRIT 38.4 % (42.0-52.0); HEMOGLOBIN 13.2 g/dl (13.5-17.5); LYMPH # 0.9 10^3/uL (1.5-5.0); LYMPH % 5.6 % (24.0-44.0); MEAN CORPUSCULAR HGB CONC 34.4 g/dl (32.0-36.5); MEAN CORPUSCULAR VOLUME 87.3 fl (80.0-96.0); MONO # 1.5 10^3/uL (0.0-0.8); MONO % 9.7 % (0.0-5.0); NEUTROPHILS # 12.7 10^3/uL (1.5-8.5); PLATELET COUNT, AUTOMATED 215 10^3/uL (150-450); WHITE BLOOD COUNT 15.6 10^3/uL (4.0-10.0)
[2020-03-06 07:18] LABS: BILIRUBIN,TOTAL 0.9 MG/DL (0.2-1.0); CALCIUM LEVEL 8.3 MG/DL (8.8-10.2); CREATININE FOR GFR 1.35 MG/DL (0.70-1.30); GLOMERULAR FILTRATION RATE 54.6 (>42); MAGNESIUM LEVEL 2.1 MG/DL (1.8-2.4); POTASSIUM SERUM 3.1 MEQ/L (3.5-5.1); TOTAL PROTEIN 6.3 GM/DL (6.4-8.2)
[2020-03-06 08:18] VITALS: BP 164/78
[2020-03-06] MEDS: CARVedilol 12.5 MG TAB PO SCH (08:18)
[2020-03-06] MEDS: ROSUVASTATIN 10 MG TAB (CRESTOR) PO SCH (08:19)
[2020-03-06] MEDS: amLODIPine 10 MG TAB PO SCH (08:19)
[2020-03-06] MEDS: DOCUSATE SODIUM 100 MG CAP PO SCH (08:20)
[2020-03-06] MEDS: ASPIRIN 81 MG ENTERIC TAB PO SCH (08:20)
[2020-03-06] MEDS: APIXABAN 5 MG TAB (ELIQUIS) PO SCH (08:20)
[2020-03-06] MEDS: FUROSEMIDE 40 MG TAB PO SCH (08:21)
[2020-03-06] MEDS ORDERED: LISI-538 PO (08:29)
[2020-03-06] MEDS ORDERED: AUGM875T28 PO (08:29)
[2020-03-06] MEDS ORDERED: PROB250C PO (08:29)
[2020-03-06] MEDS ORDERED: POTASSIUM CHLORIDE 10% LIQ 20 MEQ/15 ML UDC PO ONE (08:30)
--- NOTE | 2020-03-06 14:06 | IPNPDOC ---
Date Seen The patient was seen on 03/06/20. Progress Note SUBJECTIVE: BP elevated 170-190 systolic. Cr still elevated, but near normal. WBC slightly improved. Patient has no complaints, is tolerating diet well. Denies n/v/d, fevers, chills, shortness of breath, chest pain, abdominal pain this AM. OBJECTIVE: PHYSICAL EXAMINATION: VITAL SIGNS: please see below General: NAD, comfortable, resting comfortable HEENT: PERRLA, EOMI, sclerae clear Neck: supple, normal ROM, no JVD Resp: lungs CTAB, no wheeze, no rales, no crackles CVS: RRR, normal S1, S2, no murmurs Abdo: soft, no masses, no hepatosplenomegaly, BS+, no abdominal discomfort or pain Extremities: no edema, pulses 2+ MSK: no joint deformities, normal ROM Neuro: no focal neuro deficits, moving all 4 extremities Psych: calm, cooperative, AAO x 3 LABORATORY DATA/MICROBIOLOGY: See below. BCX x2: NG IMAGING: ERCP: - The papilla is small and located completely inside a diverticulum - The proximal main bile duct was dilated and tapers smoothly in the mid portion, then is dilated again in the distal bile duct. - Choledocholithiasis (multiple) was found. - A biliary sphincterotomy was performed. - Partial removal was accomplished with lithotripsy and balloon sweep. Removal of stone and debris was incomplete - Lithotripsy was successful for stone fragmentation, but removal of stone and debris was incomplete - One temporary stent was placed into the common bile duct. - Cells for cytology were obtained by brushing in the middle third of the main bile duct. Liver US: 1. Dilatation of the common bile duct measuring 1 cm and this could be secondary to obstruction by a stone, stricture or small mass. Recommend CT scan and MRCP for further evaluation. 2. Thickening of the gallbladder wall at 5 mm and this could be secondary to cholecystitis. 3. Sludge and gallstones within the gallbladder. ASSESSMENT: 76 yo M with a hx of chronic atrial fibrillation (AC eliquis, pacemaker), CAD, HTN admitted for ascending cholangitis, choledocholithiasis with gallstone pancreatitis, possible cholecystitis, hypertensive urgency #Abdominal pain 2/2 to ascending cholangitis, choledocholithiasis with gallstone pancreatitis, possible cholecystitis, POD3 ERCP (see details of findings above) - WBC 15.6 but improved clinical picture now for several days - AST/ALT/alk phoswax and wane - Bile duct brushings: neg for malignancy - Completed Zosyn 6 days, tolerating advanced diet - GI (Dr. Crockett) was previously following. - Discharging today: F/u in office in 2 weeks. Repeat ERCP in 1-3 months for retreatment. Will likely need cholecystectomy after bile duct is cleared. - Script for repeat labs given for CBC and CMP on 03/08/20 #Acute kidney injury likely 2/2 to hypotension above -Cr improved further to 1.35, baseline is wnl -Holding home ACEi BID until 03/08/20 # Hypokalemia -K 3.1, given 60 mEq today -Repeat CMP 03/08/20, PCP to follow up results #HTN. -BP uncontrolled -Recent episode of hypotension s/p procedure, ERCP- resolved with IVFs -REceived IVFs, low sodium diet -C/w BB, CCB antihypertensive medications. Hold ACEi BID due renal issues #Chronic afib - Rate controlled - C/w coreg 25 mg BID, eliquis 5 mg BID - Follows with Dr. Avendaño #Hx CAD - Patient had cath in 2013, s/p JAYE to [facility], noted complete RCA stenosis - Dr. Avendaño discussed case with hospitalist this admission - C/w ASA/statin/BB #Diastolic CHF - Last echo in 11/2018, showing normal EF, no valvular disease per Dr. Avendaño - C/w PO lasix Q48 hrs, BB, CCB. Holding ACEi BID #Prediabetes -HbA1c 6.2 -ISS, consistent carb diet, hypoglycemia precautions # DVT ppx - Eliquis BID DISPOSITION: Plan is discharge home today. Advised to f/u with PCP in 1-2 weeks after discharge. F/u in GI office in 2 weeks. Repeat ERCP in 1-3 months for retreatment. Will likely need cholecystectomy after bile duct is cleared. VS, I&O, 24H, Fishbone Vital Signs/I&O Vital Signs Date Time Temp Pulse Resp B/P (MAP) Pulse Ox O2 Delivery O2 Flow Rate FiO2 03/06/20 08:18 59 164/78 03/06/20 06:00 97.3 18 97 Room Air 03/04/20 14:00 1.0 I&O- Last 24 Hours up to 6 AM 03/06/20 06:00 Intake Total 4658 ml Output Total 1900 ml Balance 2758 ml Laboratory Data 24H LABS Laboratory Tests 2 03/06/20 06:34: Immature Granulocyte % (Auto) 2.2, Neutrophils (%) (Auto) 82.0H, Lymphocytes (%) (Auto) 5.6L, Monocytes (%) (Auto) 9.7H, Eosinophils (%) (Auto) 0.4, Basophils (%) (Auto) 0.1, Neutrophils # (Auto) 12.7H, Lymphocytes # (Auto) 0.9L, Monocytes # (Auto) 1.5H, Eosinophils # (Auto) 0.1, Basophils # (Auto) 0.0, Nucleated Red Blood Cells % (auto) 0.0, Anion Gap 9, Glomerular Filtration Rate 54.6, Calcium Level 8.3L, Magnesium Level 2.1, Total Bilirubin 0.9, Aspartate Amino Transf (AST/SGOT) 110H, Alanine Aminotransferase (ALT/SGPT) 181H, Alkaline Phosphatase 215H, Total Protein 6.3L, Albumin 2.0L, Albumin/Globulin Ratio 0.5 CBC/BMP Laboratory Tests 03/06/20 06:34 Microbiology Microbiology 03/02/20 Blood Culture - Preliminary, Resulted No Growth after 72 hours. All specime... 03/01/20 Blood Culture - Preliminary, Resulted No Growth after 72 hours. All specime... Current Medications Current Medications Medications (Trade) Dose Ordered Sig/Jie Route PRN Reason Start Time Stop Time Status Last Admin Dose Admin Acetaminophen (Tylenol Suppository) 650 mg Q6HP PRN [place] PAIN / FEVER 03/02/20 08:00 03/02/20 08:16 DC Acetaminophen (Tylenol Tab) 650 mg Q6HP PRN PO PAIN / FEVER 03/02/20 08:15 03/06/20 12:12 DC 03/05/20 20:09 Al Hydrox/Mg Hydrox/Simethicone (Mylanta) 30 ml DAILY PRN PO DYSPEPSIA 02/29/20 13:00 03/06/20 12:12 DC 03/04/20 01:22 Amlodipine Besylate (Norvasc) 5 mg BID PO 02/29/20 21:00 03/01/20 10:26 DC 03/01/20 08:30 Amlodipine Besylate (Norvasc) 10 mg DAILY PO 03/02/20 09:00 03/06/20 12:12 DC 03/06/20 08:19 Apixaban (Eliquis) 5 mg BID PO 02/29/20 21:00 02/29/20 18:42 DC Apixaban (Eliquis) 5 mg BID PO 03/03/20 09:00 03/06/20 12:12 DC 03/06/20 08:20 Aspirin (Ecotrin) 81 mg DAILY PO 02/29/20 09:00 03/06/20 12:12 DC 03/06/20 08:20 Carvedilol (COReg) 25 mg BID PO 02/29/20 21:00 02/29/20 20:02 DC Carvedilol (COReg) 25 mg BID PO 03/01/20 09:00 03/06/20 12:12 DC 03/06/20 08:18 Docusate Sodium (Colace) 100 mg BID PO 02/29/20 21:00 03/06/20 12:12 DC 03/06/20 08:20 Fentanyl Citrate (Sublimaze) 25 mcg Q5MP PRN IV PAIN LEVEL 5-10 03/02/20 15:30 03/02/20 16:30 DC Furosemide (Lasix) 40 mg Q48H PO 02/29/20 09:00 03/06/20 12:12 DC 03/06/20 08:21 Home Med (Med Rec Complete!) ASDIRECTED XX 02/29/20 14:00 02/29/20 13:55 DC Hydralazine HCl (Apresoline) 10 mg Q8HP PRN IV systolic bp >180 mmHg 03/01/20 10:30 03/02/20 18:47 DC Influenza Virus Vaccine (Flublok Quad(Egg-Free)18y&Older Influenza) 0.5 ml ONCE PRN IM SEE LABEL COMMENTS 02/29/20 15:30 03/06/20 12:12 DC Labetalol HCl (Normodyne, Trandate) 10 mg NOW IV 02/29/20 18:45 02/29/20 18:46 DC 02/29/20 18:48 Labetalol HCl (Normodyne, Trandate) 10 mg Q6H PRN IV SBP > 180 MMHG 02/29/20 13:15 03/01/20 07:51 DC 02/29/20 23:04 Labetalol HCl (Normodyne, Trandate) 20 mg STAT STAT IV 02/29/20 17:12 02/29/20 17:13 DC 02/29/20 17:19 Labetalol HCl 200 mg/Dextrose 200 ml @ 30 mls/hr Q6H40M IV 02/29/20 21:00 03/01/20 07:51 DC 03/01/20 05:20 Lactated Ringer's 1,000 ml @ 100 mls/hr Q10H IV 02/29/20 20:00 03/03/20 16:55 DC 03/02/20 21:34 Lactated Ringer's 1,000 ml @ 100 mls/hr Q10H IV 03/02/20 15:30 03/02/20 16:30 DC Lisinopril (Prinivil) 20 mg BID PO 02/29/20 21:00 03/01/20 10:26 DC 03/01/20 08:30 Lisinopril (Prinivil) 30 mg BID PO 03/01/20 21:00 03/03/20 11:56 DC 03/03/20 07:59 Metoclopramide HCl (REGLAN INJection) 10 mg Q6HP PRN IV NAUSEA OR VOMITING 03/02/20 15:30 03/02/20 16:30 DC Morphine Sulfate (Morphine Sulfate Inj) 2 mg Q4H PRN IV MODERATE PAIN (PS 5-7) 02/29/20 13:00 03/06/20 12:12 DC 03/01/20 20:03 Ondansetron HCl (ZOFRAN INJection) 4 mg Q4HP PRN IV NAUSEA OR VOMITING 02/29/20 13:00 03/06/20 12:12 DC 03/03/20 21:27 Ondansetron HCl (ZOFRAN INJection) 4 mg Q4HP PRN IV NAUSEA OR VOMITING 03/02/20 15:30 03/02/20 16:30 DC Oxycodone/ Acetaminophen (Percocet 5mg/ 325mg Tablet) 1 tab ASDIRECTED PRN PO PAIN LEVEL 1-4 03/02/20 15:30 03/02/20 16:30 DC Piperacillin Sod/ Tazobactam Sod 3.375 gm/Dextrose 50 ml @ 50 mls/hr Q6H IV 02/29/20 17:00 03/01/20 02:33 DC 03/01/20 02:22 Piperacillin Sod/ Tazobactam Sod 3.375 gm/Dextrose 50 ml @ 50 mls/hr Q6H IV 03/01/20 08:00 03/06/20 12:12 DC 03/06/20 08:18 Potassium Chloride 10 meq/ IV Miscellaneous Supplies 100 ml @ 100 mls/hr 0000,0100,0200,2300 IV 03/01/20 23:00 03/02/20 06:00 DC 03/02/20 01:57 Potassium Chloride 10 meq/ IV Miscellaneous Supplies 100 ml @ 100 mls/hr 0630,0730,0830 IV 03/01/20 06:30 03/01/20 12:30 DC 03/01/20 09:00 Potassium Chloride 10 meq/ IV Miscellaneous Supplies 100 ml @ 100 mls/hr 0930,1030 IV 03/01/20 09:30 03/01/20 14:30 DC 03/01/20 11:41 Potassium Chloride 10 meq/ IV Miscellaneous Supplies 100 ml @ 100 mls/hr Q1H IV 03/02/20 08:00 03/02/20 12:59 DC 03/02/20 12:08 Rosuvastatin Calcium (Crestor) 40 mg DAILY PO 02/29/20 09:00 03/06/20 12:12 DC 03/06/20 08:19 Sodium Chloride 1,000 ml @ 75 mls/hr [id number] IV 03/04/20 09:00 03/06/20 12:12 DC 03/06/20 05:42 Sodium Chloride 1,000 ml @ 100 mls/hr Q10H IV 02/29/20 13:00 02/29/20 19:19 DC 02/29/20 13:58 Allergies Coded Allergies: No Known Allergies (Unverified , 02/29/20) Krysta Hernández MD Mar 06, 2020 14:06
--- NOTE | 2020-03-06 14:09 | DS.PDOC ---
Discharge Summary General Date of Admission Feb 29, 2020 at 12:22 Date of Discharge 03/06/20 Attending Physician: Krysta Hernández MD Discharge Summary HISTORY OF PRESENT ILLNESS: 79 yo M with a hx of chronic atrial fibrillation (AC eliquis, pacemaker), CAD, HTN, transferred from [facility] with severe abdominal pain, suspected secondary to gallstone pancreatitis. Patient states that he developed severe (9/10) abdominal pain after eating dinner, at approximately 1800 yesterday evening. The pain was diffuse in abdomen, worse in the epigastrium, LUQ, RUQ. He vomited once after retching, but had no diarrhea. He had not had any hematemesis, or blood on stool. Denies hx of dark stools. On arrival to [facility], BP noted to be 220/102. Given labetalol 40 mg IV total. He denies having fevers, chills, chest pain, shortness of breath, palpitations, vision changes, or headache. Of note, patient reports undergoing recent workup for hematuria, follows with urology in [place], the[place]. Admitted to PCU for management of hypertensive urgency and workup of severe abdominal pain. Of note, patient arrived to [facility] ED morning of admission with severe pain. He was afebrile in the ED. EKG showed no acute changes. Labs remarkable for WBC 14.1. Hgb 15.0. PLT 225. AST 565, ALT 678, ALP 465. Amylase 1804. Lipase 9867. Per transfer note, CT abdomen was performed, showing cholelithiasis and inflammatory changes around pancreas (report not available). Patient was transfered to [facility] for workup of suspected gallstone pancreatitis. HOSPITAL COURSE: The patient was visited to the hospital and was found to be persistently hypertensive despite IV antihypertensive medication. He was later transferred to the ICU and placed on a labetalol drip. He remained on labetalol drip over the evening, anticoagulation was held for ERCP per GI. The patient was later transitioned off of labetalol drip to oral antihypertensive medications. He remained nothing by mouth for ERCP on 03/02/2020. Diagnosis from ERCP was ascending cholangitis, choledocholithiasis with gallstone pancreatitis, possible cholecystitis. Patient was continued on IV Zosyn, daily labs were drawn. Post ERCP the patient's blood pressure dropped to systolics of 70s. He was started on IV fluids, but the next day was found to be in acute kidney injury likely secondary to hypovolemia. He was continued on IV fluids until 03/06/2020. Creatinine later in improved to 1.35. LIZBET inhibitor twice a day was held. The patient had persistent mild leukocytosis but clinically the patient had no abdominal pain, signs or symptoms of worsening infection. He was tolerating an advanced diet well. On 03/06/2020 the patient was discharged home with 10 days of oral Augmentin and told to follow-up with GI clinic after the weekend. At d ischarge the patient denies n/v/d, fevers, chills, shortness of breath, chest pain, abdominal pain this AM. PAST MEDICAL HISTORY: Chronic afib on AC (eliquis), pacemaker diastolic CHF HTN HLD CAD Hematuria PAST SURGICAL HISTORY: reports no prior hx apart from pacemaker placement SOCIAL HISTORY: states former smoker, quit 30 years ago states regular etoh use, but none for 2 weeks (drinks ~6 units per day) FAMILY HISTORY: denies hx of cancer in family no other pertinent hx ALLERGIES: Please see below. DISCHARGE MEDICATIONS: Please see below PHYSICAL EXAMINATION: VITAL SIGNS: please see below General: NAD, comfortable, resting comfortable HEENT: PERRLA, EOMI, sclerae clear Neck: supple, normal ROM, no JVD Resp: lungs CTAB, no wheeze, no rales, no crackles CVS: RRR, normal S1, S2, no murmurs Abdo: soft, no masses, no hepatosplenomegaly, BS+, no abdominal discomfort or pain Extremities: no edema, pulses 2+ MSK: no joint deformities, normal ROM Neuro: no focal neuro deficits, moving all 4 extremities Psych: calm, cooperative, AAO x 3 LABORATORY DATA/MICROBIOLOGY: See below. BCX x2: NG IMAGING: ERCP: - The papilla is small and located completely inside a diverticulum - The proximal main bile duct was dilated and tapers smoothly in the mid portion, then is dilated again in the distal bile duct. - Choledocholithiasis (multiple) was found. - A biliary sphincterotomy was performed. - Partial removal was accomplished with lithotripsy and balloon sweep. Removal of stone and debris was incomplete - Lithotripsy was successful for stone fragmentation, but removal of stone and debris was incomplete - One temporary stent was placed into the common bile duct. - Cells for cytology were obtained by brushing in the middle third of the main bile duct. Liver US: 1. Dilatation of the common bile duct measuring 1 cm and this could be secondary to obstruction by a stone, stricture or small mass. Recommend CT scan and MRCP for further evaluation. 2. Thickening of the gallbladder wall at 5 mm and this could be secondary to cholecystitis. 3. Sludge and gallstones within the gallbladder. ASSESSMENT: 76 yo M with a hx of chronic atrial fibrillation (NAMAN kang, mane jaime), CAD, HTN admitted for ascending cholangitis, choledocholithiasis with gallstone pancreatitis, possible cholecystitis, hypertensive urgency #Abdominal pain 2/2 to ascending cholangitis, choledocholithiasis with gallstone pancreatitis, possible cholecystitis, POD3 ERCP (see details of findings above) - WBC 15.6 but improved clinical picture now for several days - AST/ALT/alk phos wax and wanes - Bile duct brushings: neg for malignancy - Completed Zosyn 6 days, tolerating advanced diet - GI (Dr. Crockett) was consulted. Wants to f/u in office in 2 weeks. Repeat ERCP in 1-3 months for retreatment. Will likely need cholecystectomy after bile duct is cleared. - Script for repeat labs given for CBC and CMP on 03/08/20 with PCP to follow results - Augmentin BID x 10 days #Acute kidney injury likely 2/2 to hypotension above -Cr improved further to 1.35, baseline is wnl -Holding home ACEi BID until 03/08/20 -Encourage oral hydration # Hypokalemia -K 3.1, given 60 mEq today -Repeat CMP 03/08/20, PCP to follow up results #HTN. -Recent episode of hypotension s/p procedure, ERCP- resolved with IVFs -Received IVFs, low sodium diet -C/w BB, CCB antihypertensive medications. Hold ACEi BID due renal issues #Chronic afib - Rate controlled - C/w coreg 25 mg BID, eliquis 5 mg BID - Follows with Dr. Avendaño #Hx CAD - Patient had cath in 2013, s/p JAYE to [facility], noted complete RCA stenosis - Dr. Avendaño discussed case with hospitalist this admission - C/w ASA/statin/BB #Diastolic CHF - Last echo in 11/2018, showing normal EF, no valvular disease per Dr. Avendaño - C/w PO lasix Q48 hrs, BB, CCB. Holding ACEi BID #Prediabetes -HbA1c 6.2 -ISS, consistent carb diet, hypoglycemia precautions # DVT ppx - Eliquis BID DISPOSITION: Plan is discharge home today. Advised to f/u with PCP in 1-2 weeks after discharge. F/u in GI office in 2 weeks. Repeat ERCP in 1-3 months for retreatment. Will likely need cholecystectomy after bile duct is cleared. TIME SPENT ON DISCHARGE: Greater than minutes. Vital Signs/I&Os Vital Signs Date Time Temp Pulse Resp B/P (MAP) Pulse Ox O2 Delivery O2 Flow Rate FiO2 03/06/20 08:18 59 164/78 03/06/20 06:00 97.3 18 97 Room Air 03/04/20 14:00 1.0 I&O- Last 24 Hours up to 6 AM 03/06/20 06:00 Intake Total 4658 ml Output Total 1900 ml Balance 2758 ml Laboratory Data Labs 24H Laboratory Tests 2 03/06/20 06:34: Immature Granulocyte % (Auto) 2.2, Neutrophils (%) (Auto) 82.0H, Lymphocytes (%) (Auto) 5.6L, Monocytes (%) (Auto) 9.7H, Eosinophils (%) (Auto) 0.4, Basophils (%) (Auto) 0.1, Neutrophils # (Auto) 12.7H, Lymphocytes # (Auto) 0.9L, Monocytes # (Auto) 1.5H, Eosinophils # (Auto) 0.1, Basophils # (Auto) 0.0, Nucleated Red Blood Cells % (auto) 0.0, Anion Gap 9, Glomerular Filtration Rate 54.6, Calcium Level 8.3L, Magnesium Level 2.1, Total Bilirubin 0.9, Aspartate Amino Transf (AST/SGOT) 110H, Alanine Aminotransferase (ALT/SGPT) 181H, Alkaline Phosphatase 215H, Total Protein 6.3L, Albumin 2.0L, Albumin/Globulin Ratio 0.5 CBC/BMP Laboratory Tests 03/06/20 06:34 Microbiology Microbiology 03/02/20 Blood Culture - Preliminary, Resulted No Growth after 72 hours. All specime... 03/01/20 Blood Culture - Preliminary, Resulted No Growth after 72 hours. All specime... Discharge Medications Scheduled Amlodipine Besylate (Amlodipine Besylate) 5 Mg Tablet, 5 MG PO BID, (Reported) Amoxicillin/Potassium Clav (Augmentin 875-125 Tablet) 1 Each Tablet, 1 TAB PO BID Apixaban (Eliquis) 5 Mg Tablet, 5 MG PO BID, (Reported) Aspirin (Aspir 81) 81 Mg Tablet.dr, 81 MG PO DAILY, (Reported) Carvedilol (Carvedilol) 25 Mg Tablet, 25 MG PO BID, (Reported) Furosemide (Furosemide) 40 Mg Tablet, 40 MG PO Q2D, (Reported) Lisinopril (Lisinopril) 20 Mg Tablet, 20 MG PO BID Do not resume until 03/08/20 Rosuvastatin Calcium (Rosuvastatin Calcium) 40 Mg Tablet, 40 MG PO DAILY, (Reported) Saccharomyces Boulardii (Probiotic) 250 Mg Capsule, 1 CAP PO BIDWM Allergies Coded Allergies: No Known Allergies (Unverified , 02/29/20) Current Medications Current Medications Medications (Trade) Dose Ordered Sig/Jie Route PRN Reason Start Time Stop Time Status Last Admin Dose Admin Acetaminophen (Tylenol Suppository) 650 mg Q6HP PRN [place] PAIN / FEVER 03/02/20 08:00 03/02/20 08:16 DC Acetaminophen (Tylenol Tab) 650 mg Q6HP PRN PO PAIN / FEVER 03/02/20 08:15 03/06/20 12:12 DC 03/05/20 20:09 Al Hydrox/Mg Hydrox/Simethicone (Mylanta) 30 ml DAILY PRN PO DYSPEPSIA 02/29/20 13:00 03/06/20 12:12 DC 03/04/20 01:22 Amlodipine Besylate (Norvasc) 5 mg BID PO 02/29/20 21:00 03/01/20 10:26 DC 03/01/20 08:30 Amlodipine Besylate (Norvasc) 10 mg DAILY PO 03/02/20 09:00 03/06/20 12:12 DC 03/06/20 08:19 Apixaban (Eliquis) 5 mg BID PO 02/29/20 21:00 02/29/20 18:42 DC Apixaban (Eliquis) 5 mg BID PO 03/03/20 09:00 03/06/20 12:12 DC 03/06/20 08:20 Aspirin (Ecotrin) 81 mg DAILY PO 02/29/20 09:00 03/06/20 12:12 DC 03/06/20 08:20 Carvedilol (COReg) 25 mg BID PO 02/29/20 21:00 02/29/20 20:02 DC Carvedilol (COReg) 25 mg BID PO 03/01/20 09:00 03/06/20 12:12 DC 03/06/20 08:18 Docusate Sodium (Colace) 100 mg BID PO 02/29/20 21:00 03/06/20 12:12 DC 03/06/20 08:20 Fentanyl Citrate (Sublimaze) 25 mcg Q5MP PRN IV PAIN LEVEL 5-10 03/02/20 15:30 03/02/20 16:30 DC Furosemide (Lasix) 40 mg Q48H PO 02/29/20 09:00 03/06/20 12:12 DC 03/06/20 08:21 Home Med (Med Rec Complete!) ASDIRECTED XX 02/29/20 14:00 02/29/20 13:55 DC Hydralazine HCl (Apresoline) 10 mg Q8HP PRN IV systolic bp >180 mmHg 03/01/20 10:30 03/02/20 18:47 DC Influenza Virus Vaccine (Flublok Quad(Egg-Free)18y&Older Influenza) 0.5 ml ONCE PRN IM SEE LABEL COMMENTS 02/29/20 15:30 03/06/20 12:12 DC Labetalol HCl (Normodyne, Trandate) 10 mg NOW IV 02/29/20 18:45 02/29/20 18:46 DC 02/29/20 18:48 Labetalol HCl (Normodyne, Trandate) 10 mg Q6H PRN IV SBP > 180 MMHG 02/29/20 13:15 03/01/20 07:51 DC 02/29/20 23:04 Labetalol HCl (Normodyne, Trandate) 20 mg STAT STAT IV 02/29/20 17:12 02/29/20 17:13 DC 02/29/20 17:19 Labetalol HCl 200 mg/Dextrose 200 ml @ 30 mls/hr Q6H40M IV 02/29/20 21:00 03/01/20 07:51 DC 03/01/20 05:20 Lactated Ringer's 1,000 ml @ 100 mls/hr Q10H IV 02/29/20 20:00 03/03/20 16:55 DC 03/02/20 21:34 Lactated Ringer's 1,000 ml @ 100 mls/hr Q10H IV 03/02/20 15:30 03/02/20 16:30 DC Lisinopril (Prinivil) 20 mg BID PO 02/29/20 21:00 03/01/20 10:26 DC 03/01/20 08:30 Lisinopril (Prinivil) 30 mg BID PO 03/01/20 21:00 03/03/20 11:56 DC 03/03/20 07:59 Metoclopramide HCl (REGLAN INJection) 10 mg Q6HP PRN IV NAUSEA OR VOMITING 03/02/20 15:30 03/02/20 16:30 DC Morphine Sulfate (Morphine Sulfate Inj) 2 mg Q4H PRN IV MODERATE PAIN (PS 5-7) 02/29/20 13:00 03/06/20 12:12 DC 03/01/20 20:03 Ondansetron HCl (ZOFRAN INJection) 4 mg Q4HP PRN IV NAUSEA OR VOMITING 02/29/20 13:00 03/06/20 12:12 DC 03/03/20 21:27 Ondansetron HCl (ZOFRAN INJection) 4 mg Q4HP PRN IV NAUSEA OR VOMITING 03/02/20 15:30 03/02/20 16:30 DC Oxycodone/ Acetaminophen (Percocet 5mg/ 325mg Tablet) 1 tab ASDIRECTED PRN PO PAIN LEVEL 1-4 03/02/20 15:30 03/02/20 16:30 DC Piperacillin Sod/ Tazobactam Sod 3.375 gm/Dextrose 50 ml @ 50 mls/hr Q6H IV 02/29/20 17:00 03/01/20 02:33 DC 03/01/20 02:22 Piperacillin Sod/ Tazobactam Sod 3.375 gm/Dextrose 50 ml @ 50 mls/hr Q6H IV 03/01/20 08:00 03/06/20 12:12 DC 03/06/20 08:18 Potassium Chloride 10 meq/ IV Miscellaneous Supplies 100 ml @ 100 mls/hr 0000,0100,0200,2300 IV 03/01/20 23:00 03/02/20 06:00 DC 03/02/20 01:57 Potassium Chloride 10 meq/ IV Miscellaneous Supplies 100 ml @ 100 mls/hr 0630,0730,0830 IV 03/01/20 06:30 03/01/20 12:30 DC 03/01/20 09:00 Potassium Chloride 10 meq/ IV Miscellaneous Supplies 100 ml @ 100 mls/hr 0930,1030 IV 03/01/20 09:30 03/01/20 14:30 DC 03/01/20 11:41 Potassium Chloride 10 meq/ IV Miscellaneous Supplies 100 ml @ 100 mls/hr Q1H IV 03/02/20 08:00 03/02/20 12:59 DC 03/02/20 12:08 Rosuvastatin Calcium (Crestor) 40 mg DAILY PO 02/29/20 09:00 03/06/20 12:12 DC 03/06/20 08:19 Sodium Chloride 1,000 ml @ 75 mls/hr [id number] IV 03/04/20 09:00 03/06/20 12:12 DC 03/06/20 05:42 Sodium Chloride 1,000 ml @ 100 mls/hr Q10H IV 02/29/20 13:00 02/29/20 19:19 DC 02/29/20 13:58 Krysta Hernández MD Mar 06, 2020 14:09
--- NOTE | 2020-03-11 11:18 | REP ---
PORTABLE CHEST HISTORY: Gallstone pancreatitis. FINDINGS: Single view of the chest is performed. There are no prior studies for comparison. There is mild cardiomegaly and pulmonary venous hypertension. There appear to be mild linear fibroatelectatic changes in each lung base. No consolidative infiltrate is seen. There is calcification and tortuosity of the thoracic aorta. There is a left dual-lead pacemaker noted. MTDD
--- NOTE | 2020-03-11 11:19 | REP ---
ERCP: 54 VIEWS HISTORY: Gallstone pancreatitis. FLUOROSCOPY TIME: 11 minutes 1 second reported. FINDINGS: A sequence of 54 [id number] fluoroscopically obtained spot radiographs of the abdomen taken during ERCP document endoscopic cannulation, contrast injection into the common bile duct with balloon catheter manipulation, and stent placement. CHARLIE
== END 2020-03-06 12:12 | disposition home or self-care (01) | DRG 444 ==
LOC: M MSPAV 12:22 → M PCU 13:35 → M ICU 20:44 → M MS5PR 03-03 06:20
PROVIDERS: ADMIT General Practice; ATTEND Internal Medicine
PROC: 0F798DZ Dilation of Common Bile Duct with Intraluminal Device, Via Natural or Artificial Opening Endoscopic (ICD-10-PCS; 2020-03-02)
PROC: 0FB98ZX Excision of Common Bile Duct, Via Natural or Artificial Opening Endoscopic, Diagnostic (ICD-10-PCS; 2020-03-02)
PROC: 0FC98ZZ Extirpation of Matter from Common Bile Duct, Via Natural or Artificial Opening Endoscopic (ICD-10-PCS; principal; 2020-03-02 13:00)
DX: K80.32 Calculus of bile duct with acute cholangitis without obstruction (principal); K85.10 Biliary acute pancreatitis without necrosis or infection; I48.20 Chronic atrial fibrillation, unspecified; I50.32 Chronic diastolic (congestive) heart failure; N17.9 Acute kidney failure, unspecified; I25.10 Atherosclerotic heart disease of native coronary artery without angina pectoris; I11.0 Hypertensive heart disease with heart failure; E87.6 Hypokalemia; R73.03 Prediabetes; I16.0 Hypertensive urgency; E78.5 Hyperlipidemia, unspecified; Z87.891 Personal history of nicotine dependence; Z79.01 Long term (current) use of anticoagulants; Z95.0 Presence of cardiac pacemaker; Z79.82 Long term (current) use of aspirin; Z79.899 Other long term (current) drug therapy; Z20.828 Contact with and (suspected) exposure to other viral communicable diseases

== ENCOUNTER 2020-03-09 15:25 | Inpatient (IN) | payer MEDICARE ==
[~2020-03-09] VITALS: Ht 180.3 cm; Wt 97.7 kg
[~2020-03-09 15:25] MED LIST: AMLO1TAB24 PO; ASPI81TA86 PO; AUGM875T28 PO; CARV25TA PO; ELIQ5TAB PO; FURO40TA2 PO; LISI-538 PO; PROB250C PO; ROSU40TA4 PO
[2020-03-09] MEDS ORDERED: NS 1,000 ML IV ONE (16:30)
[2020-03-09 16:51] LABS: BASO % 0.2 % (0.0-1.0); EOS # 0.1 10^3/uL (0.0-0.5); EOS % 0.9 % (0.0-3.0); HEMATOCRIT 36.1 % (42.0-52.0); HEMOGLOBIN 12.5 g/dl (13.5-17.5); LYMPH # 1.1 10^3/uL (1.5-5.0); MEAN CORPUSCULAR HEMOGLOBIN 30.5 pg (27.0-33.0); MEAN CORPUSCULAR HGB CONC 34.6 g/dl (32.0-36.5); MONO # 1.3 10^3/uL (0.0-0.8); MONO % 8.1 % (0.0-5.0); NEUTROPHILS # 12.8 10^3/uL (1.5-8.5); NEUTROPHILS % 81.8 % (36.0-66.0); PLATELET COUNT, AUTOMATED 281 10^3/uL (150-450); WHITE BLOOD COUNT 15.7 10^3/uL (4.0-10.0)
--- NOTE | 2020-03-09 17:05 | REPVR ---
PROCEDURE INFORMATION: Exam: XR Complete Acute Abdomen Series Exam date and time: 03/09/2020 4:21 PM Age: 79 years old Clinical indication: Abdominal pain; Additional info: Abd bloating, decr. Stools TECHNIQUE: Imaging protocol: XR complete acute abdomen series, including 2 or more views of the abdomen and a single view chest. COMPARISON: [place] Chest, 1 view 02/29/2020 1:14 PM FINDINGS: Tubes, catheters and devices: Dual chamber cardiac pacer demonstrated. Catheter demonstrated in the mid abdomen. Lungs: Normal. No consolidation. Pleural space: Blunted right costophrenic angle consistent with a pleural effusion. Heart/Mediastinum: Normal. No cardiomegaly. Gastrointestinal tract: Mildly dilated loops of small bowel with air-fluid levels consistent with a ileus or small-bowel obstruction. Intraperitoneal space: Normal. No free air. Bones/joints: Normal. No acute fracture. Soft tissues: Normal. IMPRESSION: Mildly dilated loops of small bowel with air-fluid levels consistent with a ileus or small-bowel obstruction. Electronically signed by: Kodak Chang On 03/09/2020 17:02:28 PM
[2020-03-09 17:10] LABS: ALBUMIN 2.1 GM/DL (3.2-5.2); BILIRUBIN,DIRECT 0.5 MG/DL (0.0-0.2); BILIRUBIN,TOTAL 0.6 MG/DL (0.2-1.0); C REACTIVE PROTEIN QUANTITATIV 9.76 MG/DL (0.00-0.30); CALCIUM LEVEL 8.3 MG/DL (8.8-10.2); CREATININE FOR GFR 1.37 MG/DL (0.70-1.30); GLOMERULAR FILTRATION RATE 53.6 (>42); POTASSIUM SERUM 3.1 MEQ/L (3.5-5.1); TOTAL PROTEIN 6.1 GM/DL (6.4-8.2)
[2020-03-09 17:19] LABS: ERYTHROCYTE SEDIMENTATION RATE 64 mm/hr (0-20)
[2020-03-09] MEDS ORDERED: ISOVUE-370 76% 100ML VIAL As Ordered ONE (18:02)
--- NOTE | 2020-03-09 18:42 | REPVR ---
PROCEDURE INFORMATION: Exam: CT Abdomen And Pelvis With Contrast Exam date and time: 03/09/2020 6:16 PM Age: 79 years old Clinical indication: Abnormal findings; Abnormal radiologic finding of the abdomen; Radiologic exam and body structure: Xray /, sbo vs. Ileus; Prior surgery; Surgery date: 3-7 days post-operative; Surgery type: Ercp; Additional info: Ileus vs sbo on XR, choledocholithiasis, cholangitis, pancre TECHNIQUE: Imaging protocol: Computed tomography of the abdomen and pelvis with intravenous contrast. Radiation optimization: All CT scans at this facility use at least one of these dose optimization techniques: automated exposure control; mA and/or kV adjustment per patient size (includes targeted exams where dose is matched to clinical indication); or iterative reconstruction. Contrast material: ISOVUE 370; Contrast volume: 100 ml; Contrast route: INTRAVENOUS (IV); COMPARISON: LIVER US 02/29/2020 5:36 PM FINDINGS: Pleural space: Small bilateral pleural effusions. Compressive atelectasis both lung bases. Mediastinal space: A small hiatal hernia is present. Liver: There is a diffuse decrease in hepatic parenchymal density, consistent with steatosis. Gallbladder and bile ducts: Polypoid densities demonstrated within the lumen of the gallbladder representing calculi or polyps. Mild thickening of the gallbladder wall. Clinical correlation to exclude cholecystitis suggested. There is an indwelling stent demonstrated in the distal common bile duct. Pancreas: There is marked diffuse peripancreatic inflammatory stranding and fluid, consistent with acute pancreatitis. Fluid extends into both anterior pararenal spaces. Spleen: Normal. No splenomegaly. Adrenals: Normal. No mass. Kidneys and ureters: Normal. No hydronephrosis. Stomach and bowel: Unremarkable. No obstruction. No mucosal thickening. Appendix: No evidence of appendicitis. Intraperitoneal space: Unremarkable. No free air. No significant fluid collection. Vasculature: The aortoiliac vessels demonstrate mild atherosclerotic calcification. Lymph nodes: Unremarkable. No enlarged lymph nodes. Urinary bladder: Unremarkable as visualized. Reproductive: The prostate gland demonstrates marked hyperplasia. Bones/joints: Moderate to severe central spinal stenosis L3-L4, severe central spinal stenosis L4-L5. Bulging annulus L5-S1. Soft tissues: Unremarkable. IMPRESSION: 1. Polypoid densities demonstrated within the lumen of the gallbladder representing calculi or polyps. Mild thickening of the gallbladder wall. Clinical correlation to exclude cholecystitis suggested. 2. There is a diffuse decrease in hepatic parenchymal density, consistent with steatosis. 3. There is marked diffuse peripancreatic inflammatory stranding and fluid, consistent with acute pancreatitis. Fluid extends into both anterior pararenal spaces. 4. A small hiatal hernia is present. 5. Marked prostatic hyperplasia. Electronically signed by: Kodak Chang On 03/09/2020 18:42:01 PM
[2020-03-09] MEDS ORDERED: CVS1CAP2 PO (19:27)
[2020-03-09] MEDS ORDERED: AUGM875T28 PO (19:27)
[2020-03-09] MEDS ORDERED: LISI-538 PO (19:27)
[2020-03-09] MEDS ORDERED: PIPERACILLIN/TAZOBACTAM SOD 3.375 GM in D5W MINI-BAG PLUS 50 ML IV ONE (19:45)
--- NOTE | 2020-03-09 19:55 | IPNPDOC ---
Text Note Date of Service The patient was seen on 03/09/20. NOTE TIME OF SERVICE 830PM is a 79 yr old w a hx of afib, HFpEF, HTN, CAD and dyslipidemia who was recently admitted for HTN urgency that resolved w IV meds, ascending chol angitis, and call stone pancreatitis that was managed w ERCP and stent placement; today he presented to his PCP w c/o weakness and was sent back to the ER for evaluation of transaminitis. He is c/o poor appetite but denies overt abdominal pain. He is scheduled for elective cholecystectomy. His physical exam is remarkable for + murphys sign. #Acute cholecystitis cause of leukocytosis and transaminitis -CLD / f/u w / c/w abx / considering Gen Surg consult to determine if procedure needs to be done this admission #GE likely prerenal -f/u ulytes for FENa w IVF / hold Lisinopril & lasix # NN Anemia -trend Hg and f/u iron studies and stool occult # Hyponatremia and Hypokalemia likely 2/2 poor PO intake -IVF & replete lytes # Bradycardia likely 2/2 amlodipine -telemetry # A fib -hold apixaban in anticipation of surgery this admission / no need for bridging AC bc his CHADSVAS is <5 # Weakness 2/2 deconditioning and possibly hypokalemia -replete lytes / PT eval / hold statin which can cause weakness in the elderly #Obesity w BMI of 30 complicates care -check A1C Rest per H&P VS,Nieves, I+O VS, Nieves, I+O Laboratory Tests 03/09/20 16:28 Vital Signs Date Time Temp Pulse Resp B/P (MAP) Pulse Ox O2 Delivery O2 Flow Rate FiO2 03/09/20 15:56 03/09/20 15:28 98.1 56 18 98 Room Air AIDA PAULSON MD Mar 09, 2020 19:55
[2020-03-09] MEDS: CARVedilol 12.5 MG TAB PO SCH (21:00)
[2020-03-09] MEDS: NS 1,000 ML IV SCH (22:30)
--- NOTE | 2020-03-09 22:39 | HPEPDOC ---
[facility] Medical History & Physical Date of Admission Mar 09, 2020 Date of Service: Mar 09, 2020 Attending Physician: AIDA PAULSON MD History and Physical CHIEF COMPLAINT: abnormal labs, sent from PCP HISTORY OF PRESENT ILLNESS: Yusuf Haney is a 79 YO M with history of AF (on Eliquis), recent hospitalization for hypertensive urgency s/p ERCP for choledocholithiasis discharged home on 03/06/20 who presents from PCP office today for weakness found to have elevated liver enzymes. The patient reports regina t since his discharge 3 days ago, he has been taking his prescribed Augmentin but has not been eating/drinking much due to poor appetite and food aversion. He states that it is difficult for him get around his house, especially up a flight of stairs, due to his weakness. He denies any recent fevers, chills, N/V/D or shortness of breath. He does report that he has abdominal bloating but no pain. He states he has been sleeping well, if not too much. Otherwise, he has no other complaints. PAST MEDICAL HISTORY: Chronic afib on AC (eliquis), pacemaker diastolic CHF HTN HLD CAD Hematuria PAST SURGICAL HISTORY: reports no prior hx apart from pacemaker placement SOCIAL HISTORY: states former smoker, quit 30 years ago states regular etoh use, but none for 2 weeks (drinks ~6 units per day) FAMILY HISTORY: denies hx of cancer in family no other pertinent hx ALLERGIES: Please see below. REVIEW OF SYSTEMS: Constitutional: No Weight Change, No Fever, No Chills, No Night Sweats, No Fatigue, No Malaise ENT/Mouth: No Hearing Changes, No Ear Pain, No Nasal Congestion, No Sinus Pain, No Hoarseness, No sore throat, No Rhinorrhea, No Swallowing Difficulty Eyes: No Eye Pain, No Swelling, No Redness, No Foreign Body, No Discharge, No Vision Changes Cardiovascular: No Chest Pain, No SOB, No PND, No Dyspnea on Exertion, No Orthopnea, No Claudication, No Edema, No Palpitations Respiratory: No Cough, No Wheezing, No Smoke Exposure, No Dyspnea Gastrointestinal: No Nausea, No Vomiting, No Diarrhea, No Constipation, No abdominal pain but does report bloating and decreased appetite Genitourinary: No Dysmenorrhea, No DUB, No Dyspareunia, No Dysuria Musculoskeletal: No Arthralgias, No Myalgias, No Joint Swelling, No Joint Stiffness, No Back Pain, No Neck Pain, No Injury History Skin: No Skin Lesions, No Pruritis Neuro: No Weakness, No Numbness, No Paresthesias, No Loss of Consciousness, No Syncope, No Dizziness, No Headache, No Coordination Changes, No Recent Falls Psych: No Anxiety/Panic, No Depression, No Insomnia, No Personality Changes, No Delusions Heme/Lymph: No Bruising, No Bleeding, No Transfusions History, No Lymphadenopathy Endocrine: No Polyuria, No Polydipsia, No Temperature Intolerance HOME MEDICATIONS: Please see below. VITAL SIGNS: see below GENERAL: alert and oriented, in no apparent distress, pleasant and conversant in full sentences. HEENT: PERRL, EOMI, Oral mucous membranes are moist without lesions. NECK: The patient has no noted JVD. No adenopathy is appreciated. No thyromegaly CHEST/LUNGS: Lungs are clear bilaterally without rhonchi, rales, or wheezes. There is no subcutaneous air appreciated. There is no tenderness to the chest wall. HEART: Irregularly Irregular rhythm. No murmurs, rubs, or gallops are appreciated. Distal pulses are 2+. No carotid bruits appreciated. ABDOMEN: Soft, tender to deep palpitation in RUQ and RLQ, +BS, no organomegaly EXTREMITIES: No peripheral edema. There is no focal long bone tenderness or deformity. SKIN: The patients skin is warm and dry, without rashes or lesions. PSYCHIATRIC: AAO x 3, normal mood/affect NEUROLOGIC: The patient has 5/5 strength to the upper and lower extremities bilaterally. Sensation is intact throughout. Deep tendon reflexes are 2+ in all four extremities. There are no deficits to the cranial nerves. LABORATORY DATA: See below. IMAGING: ABDOMINAL XR: FINDINGS: Tubes, catheters and devices: Dual chamber cardiac pacer demonstrated. Catheter demonstrated in the mid abdomen. Lungs: Normal. No consolidation. Pleural space: Blunted right costophrenic angle consistent with a pleural effusion. Heart/Mediastinum: Normal. No cardiomegaly. Gastrointestinal tract: Mildly dilated loops of small bowel with air-fluid levels consistent with a ileus or small-bowel obstruction. Intraperitoneal space: Normal. No free air. Bones/joints: Normal. No acute fracture. Soft tissues: Normal. IMPRESSION: Mildly dilated loops of small bowel with air-fluid levels consistent with a ileus or small-bowel obstruction. CT ABD/PEL: IMPRESSION: 1. Polypoid densities demonstrated within the lumen of the gallbladder representing calculi or polyps. Mild thickening of the gallbladder wall. Clinical correlation to exclude cholecystitis suggested. 2. There is a diffuse decrease in hepatic parenchymal density, consistent with steatosis. 3. There is marked diffuse peripancreatic inflammatory stranding and fluid, consistent with acute pancreatitis. Fluid extends into both anterior pararenal spaces. 4. A small hiatal hernia is present. 5. Marked prostatic hyperplasia. MICROBIOLOGY: Please see below. ASSESSMENT: This is a 79 YO M with AF and recent choledocholithiasis s/p CBD stent placement who presents 72 hours after discharge with weakness and abnormally elevated LFTs found to have thickened gallbladder wall with stones concerning for ascending cholangitis vs cholecystitis. . PLAN: 1. Abnormal liver enzymes: concern for ascending cholangitis although no fever or jaundice vs cholecystitis -patient does complain of abdominal bloating and has pain to deep palpation RUQ and RLQ. -CT Abd/pelvis demonstrates gallbladder wall thickening -AST/ALT found to be 198/333, respectively which has trended up from his discharge 3 days ago -GI (Reindl) called by ED provider. His concern is that the PO Augmentin the patient was discharged home on may not have covered all GI pathogens. Recommended admission, IV fluids, IV Zosyn. Will see patient in AM. GI consult placed -Patient is currently afebrile, hemodynamically stable -Would recommend General Surgery consult in AM for possible cholecystectomy -CRP elevated at 9.76 and leukocytosis at 15.7 concerning for acute infection but may be due to recent procedure (it was 15.6 3 days ago) 2. Elevated lipase, concern for acute gallstone pancreatitis: -CT abd/pelvis concerning for fat stranding in pancreas -Patient denies abdominal pain. -Lipase 769 -Will start IV fluid hydration, pain management with Morphine -NPO for now 3. Hyponatremia: Na found to be 132, most likely 2/2 hypovolemic hyponatremia in the setting of decreased intake -Will recheck BMP after 1L NS fluid bolus 4. Hypokalemia: K found to be 3.1 -Likely 2/2 decreased intake -Will order potassium replacement 5. GE: -Cr 1.37 with baseline around 1.0. Likely prerenal due to decreased intake/dehyration -Likely to improve with IV Fluids 6. HTN: -Continue home Amlodipine -Holding ACEi due to GE 7. Chronic atrial fibrillation -Holding eliquis for possible procedure tomorrow 8. Hx CAD: -Continue Crestor, holding ASA 9. dCHF with normal EF: -Continue Coreg, holding home Lasix for time being DVT ppx: TEDs/SCD Vital Signs Vital Signs Date Time Temp Pulse Resp B/P (MAP) Pulse Ox O2 Delivery O2 Flow Rate FiO2 03/09/20 15:56 03/09/20 15:28 98.1 56 18 98 Room Air Laboratory Data Labs 24H Laboratory Tests 2 03/09/20 16:28: Immature Granulocyte % (Auto) 2.0, Neutrophils (%) (Auto) 81.8H, Lymphocytes (%) (Auto) 7.0L, Monocytes (%) (Auto) 8.1H, Eosinophils (%) (Auto) 0.9, Basophils (%) (Auto) 0.2, Neutrophils # (Auto) 12.8H, Lymphocytes # (Auto) 1.1L, Monocytes # (Auto) 1.3H, Eosinophils # (Auto) 0.1, Basophils # (Auto) 0.0, Nucleated Red Blood Cells % (auto) 0.0, Erythrocyte Sedimentation Rate 64H, Anion Gap 9, Glomerular Filtration Rate 53.6, Calcium Level 8.3L, Total Bilirubin 0.6, Direct Bilirubin 0.5H, Aspartate Amino Transf (AST/SGOT) 198H, Alanine Aminotransferase (ALT/SGPT) 333H, Alkaline Phosphatase 339H, C-Reactive Protein, Quantitative 9.76H, Total Protein 6.1L, Albumin 2.1L, Albumin/Globulin Ratio 0.5, Lipase 769H CBC/BMP Laboratory Tests 03/09/20 16:28 Home Medications Scheduled Amlodipine Besylate (Amlodipine Besylate) 5 Mg Tablet, 5 MG PO BID Amoxicillin/Potassium Clav (Augmentin 875-125 Tablet) 1 Each Tablet, 1 TAB PO BID FOR 10 DAYS, STARTED 03/06/20 Apixaban (Eliquis) 5 Mg Tablet, 5 MG PO BID Aspirin (Aspir 81) 81 Mg Tablet.dr, 81 MG PO DAILY Carvedilol (Carvedilol) 25 Mg Tablet, 25 MG PO BID Furosemide (Furosemide) 40 Mg Tablet, 40 MG PO Q2D HAS NOT TAKEN SINCE DISCHARGE ON 03/06/20 Lactobacillus Combo No.10 (Probiotic) 1 Each Capsule, 1 CAP PO BIDWM Lisinopril (Lisinopril) 20 Mg Tablet, 20 MG PO BID Rosuvastatin Calcium (Rosuvastatin Calcium) 40 Mg Tablet, 40 MG PO DAILY Allergies Coded Allergies: No Known Allergies (Unverified , 02/29/20) A-FIB/CHADSVASC A-FIB History Current/History of A-Fib/PAF?: Yes Current PO Anticoag Therapy: Yes GME ATTESTATION GME ATTESTATION My faculty preceptor for this patient encounter was physically present during the encounter and was fully available. All aspects of the patient interview, examination, medical decision making process, and medical care plan development were reviewed and approved by the faculty preceptor. The faculty preceptor is aware and concurs with the plan as stated in the body of this note and will attest to such by his/her cosignature. ATTENDING NOTE I reviewed the note and agree with the findings as documented with the following additions TIME OF SERVICE 830PM is a 79 yr old w a hx of afib, HFpEF, HTN, CAD and dyslipidemia who was recently admitted for HTN urgency that resolved w IV meds, ascending cholangitis, and call stone pancreatitis that was managed w ERCP and stent placement; today he presented to his PCP w c/o weakness and was sent back to the ER for evaluation of transaminitis. He is c/o poor appetite but denies overt abdominal pain. He is scheduled for elective cholecystectomy. His physical exam is remarkable for + murphys sign. #Acute cholecystitis cause of leukocytosis and transaminitis -CLD / f/u w / c/w abx / considering Gen Surg consult to determine if procedure needs to be done this admission #GE likely prerenal -f/u ulytes for FENa w IVF / hold Lisinopril & lasix # NN Anemia -trend Hg and f/u iron studies and stool occult # Hyponatremia and Hypokalemia likely 2/2 poor PO intake -IVF & replete lytes # Bradycardia likely 2/2 amlodipine -telemetry # A fib -hold apixaban in anticipation of surgery this admission / no need for bridging AC bc his CHADSVAS is <5 # Weakness 2/2 deconditioning and possibly hypokalemia -replete lytes / PT eval / hold statin which can cause weakness in the elderly #Obesity w BMI of 30 complicates care -check A1C Rest per Dr.Beshays Camp&P SHANELL VIEYRA MD Mar 09, 2020 20:08 AIDA PAULSON MD Mar 10, 2020 06:09
[2020-03-09] MEDS ORDERED: POTASSIUM CHLORIDE 10 MEQ SR TABLET PO ONE (22:45)
[2020-03-09 23:56] VITALS: BP 154/62
[2020-03-10] MEDS: amLODIPine 5 MG TAB PO SCH ×3 (00:47→20:27)
[2020-03-10] MEDS: KCL 10MEQ/100ML SWI (KRUN) 10 MEQ in IV 1 EA IV SCH ×4 (00:47→06:18)
[2020-03-10] MEDS: PIPERACILLIN/TAZOBACTAM SOD 3.375 GM in D5W MINI-BAG PLUS 50 ML IV SCH ×4 (02:01→20:27)
[2020-03-10 06:00] VITALS: BP 143/53
[2020-03-10 06:32] LABS: HEMATOCRIT 36.7 % (42.0-52.0); HEMOGLOBIN 12.4 g/dl (13.5-17.5); MEAN CORPUSCULAR HEMOGLOBIN 29.8 pg (27.0-33.0); MEAN CORPUSCULAR HGB CONC 33.8 g/dl (32.0-36.5); MEAN CORPUSCULAR VOLUME 88.2 fl (80.0-96.0); PLATELET COUNT, AUTOMATED 275 10^3/uL (150-450); RED BLOOD COUNT 4.16 10^6/uL (4.30-6.10); WHITE BLOOD COUNT 15.9 10^3/uL (4.0-10.0)
[2020-03-10 06:52] LABS: BILIRUBIN,TOTAL 0.7 MG/DL (0.2-1.0); CALCIUM LEVEL 8.4 MG/DL (8.8-10.2); CREATININE FOR GFR 1.29 MG/DL (0.70-1.30); GLOMERULAR FILTRATION RATE 57.5 (>42); MAGNESIUM LEVEL 2.2 MG/DL (1.8-2.4); PERCENT SATURATION 15.4 % (19.7-50.0); POTASSIUM SERUM 3.6 MEQ/L (3.5-5.1); TOTAL PROTEIN 6.5 GM/DL (6.4-8.2)
[2020-03-10 06:59] LABS: INR 1.29; PROTHROMBIN TIME 16.4 SECONDS (12.5-14.3)
[2020-03-10 07:05] LABS: HEMOGLOBIN A1c 6.6 %
[2020-03-10 07:22] LABS: CREATININE,RANDOM URINE 42.4 MG/DL
--- NOTE | 2020-03-10 07:52 | IPNPDOC ---
Subjective Date Seen The patient was seen on 03/10/20. Subjective Chief Complaint/HPI Pt was seen at bedside this am. Pt is NAD. States he is bloated and passing flatus and that his last bowel movement was this am at 7am. He denies CP, sob, fever, chills but is a little nauseated but no vomiting. No other acute events. ROS: All 12 points reviewed. See HPI PHYSICAL EXAM: VITAL SIGNS: see below GENERAL: alert and oriented, in no apparent distress, pleasant and conversant in full sentences. HEENT: PERRL, EOMI, Oral mucous membranes are moist without lesions. NECK: The patient has no noted JVD. No adenopathy is appreciated. No thyromegaly CHEST/LUNGS: Lungs are clear bilaterally without rhonchi, rales, or wheezes. There is no subcutaneous air appreciated. There is no tenderness to the chest wall. HEART: Irregularly Irregular rhythm. No murmurs, rubs, or gallops are appreciated. Distal pulses are 2+. No carotid bruits appreciated. ABDOMEN: Soft, tender to deep palpitation in RUQ and RLQ, +BS, no organomegaly EXTREMITIES: No peripheral edema. There is no focal long bone tenderness or deformity. SKIN: The patients skin is warm and dry, without rashes or lesions. PSYCHIATRIC: AAO x 3, normal mood/affect NEUROLOGIC: The patient has 5/5 strength to the upper and lower extremities bilaterally. Sensation is intact throughout. Deep tendon reflexes are 2+ in all four extremities. There are no deficits to the cranial nerves. LABORATORY DATA: See below. IMAGING: ABDOMINAL XR: IMPRESSION: Mildly dilated loops of small bowel with air-fluid levels consistent with an ileus or small-bowel obstruction. CT ABD/PELVIS: IMPRESSION: 1. Polypoid densities demonstrated within the lumen of the gallbladder representing calculi or polyps. Mild thickening of the gallbladder wall. 2. There is marked diffuse peripancreatic inflammatory stranding and fluid, consistent with acute pancreatitis. Fluid extends into both anterior pararenal spaces MICROBIOLOGY: Please see below Assessment /Plan Assessment ASSESSMENT: This is a 79 YO M with AF and recent choledocholithiasis s/p CBD s tent placement who presents 72 hours after discharge with weakness and abnormally elevated LFTs found to have thickened gallbladder wall with stones concerning for ascending cholangitis vs cholecystitis Plan/VTE VTE Prophylaxis Ordered?: Yes Plan #Abnormal liver enzymes: concern for ascending cholangitis although no fever or jaundice vs cholecystitis -patient does complain of abdominal bloating and has pain to deep palpation RUQ and RLQ. -CT Abd/pelvis demonstrates gallbladder wall thickening -AST/ALT found to be 198/333, respectively which has trended up from his discharge 3 days ago -Patient is currently afebrile, hemodynamically stable -CRP elevated at 9.76 and leukocytosis at 15.7 concerning for acute infection but may be due to recent procedure (it was 15.6 3 days ago) -GI (Keira) consulted- recommends IVF and IV zosyn #Acute gallstone pancreatitis - Lipase elevated on admission 700s -CT abd/pelvis concerning for fat stranding in pancreas -Patient denies abdominal tenderness -Will continue IV fluid hydration, pain management with Morphine -Gen surg (Dr. Loo) consulted- spoke on phone and he recommends IVF and IV abx coverage; he does not recommend surgery at this point even though there's recurring pancreatitis. This episode is acute and he wants to follow up with patient outpatient in 2 weeks for possible cholecystectomy then. -NPO # GE -Cr 1.37 with baseline around 1.0. Likely prerenal due to decreased fluid intake -Continue IVF at 50cc/h - Avoid nephrotoxic drugs #Bradycardia - HR 55 this am; asymptomatic per patient - Carvedilol hold parameter of HR <60 - Continue standard of care vital signs # HTN - Bp 143/53 - Continue home Amlodipine - Holding ACEi due to GE 7. Hx of Chronic atrial fibrillation - Holding eliquis for possible procedure per surgery - Will resume after procedure 8. Hx CAD: - Continue Crestor - Holding ASA and will resume post procedure 9. HFpEF - Continue Coreg - Hold on Lasix DVT ppx: TEDs/SCD IVF: NS 0.9% @50cc/h Diet: NPO Code: Full Code Disposition: NPO, IVF hydration, Pain control. Pending GI and Gen surgery consultations - appreciate recommendations. VS, I&O, 24H, Fishbone Vital Signs/I&O Vital Signs Date Time Temp Pulse Resp B/P (MAP) Pulse Ox O2 Delivery O2 Flow Rate FiO2 03/10/20 06:00 99.9 55 18 143/53 (83) 96 Room Air I&O- Last 24 Hours up to 6 AM 03/10/20 06:00 Intake Total 1600 ml Output Total 850 ml Balance 750 ml Laboratory Data 24H LABS Laboratory Tests 2 03/09/20 16:28: Immature Granulocyte % (Auto) 2.0, Neutrophils (%) (Auto) 81.8H, Lymphocytes (%) (Auto) 7.0L, Monocytes (%) (Auto) 8.1H, Eosinophils (%) (Auto) 0.9, Basophils (%) (Auto) 0.2, Neutrophils # (Auto) 12.8H, Lymphocytes # (Auto) 1.1L, Monocytes # (Auto) 1.3H, Eosinophils # (Auto) 0.1, Basophils # (Auto) 0.0, Nucleated Red Blood Cells % (auto) 0.0, Erythrocyte Sedimentation Rate 64H, Anion Gap 9, Glomerular Filtration Rate 53.6, Calcium Level 8.3L, Total Bilirubin 0.6, Direct Bilirubin 0.5H, Aspartate Amino Transf (AST/SGOT) 198H, Alanine Aminotransferase (ALT/SGPT) 333H, Alkaline Phosphatase 339H, C-Reactive Protein, Quantitative 9.76H, Total Protein 6.1L, Albumin 2.1L, Albumin/Globulin Ratio 0.5, Lipase 769H 03/09/20 21:01: Urine Color YELLOW, Urine Appearance CLEAR, Urine pH 6.0, Urine Specific Stow 1.029, Urine Protein 1+H, Urine Glucose (UA) 3+H, Urine Ketones NEGATIVE, Urine Blood 1+H, Urine Nitrite NEGATIVE, Urine Bilirubin NEGATIVE, Urine Urobilinogen 0.2, Urine Leukocyte Esterase NEGATIVE, Urine WBC (Auto) 1, Urine RBC (Auto) 1, Urine Hyaline Casts (Auto) 0, Urine Bacteria (Auto) NEGATIVE, Urine Squamous Epithelial Cells 0, Urine Sperm (Auto) 03/10/20 06:00: Nucleated Red Blood Cells % (auto) 0.0, Anion Gap 6L, Glomerular Filtration Rate 57.5, Calcium Level 8.4L, Total Bilirubin 0.7, Aspartate Amino Transf (AST/SGOT) 137H, Alanine Aminotransferase (ALT/SGPT) 278H, Alkaline Phosphatase 319H, Total Protein 6.5, Albumin 2.0L, Albumin/Globulin Ratio 0.4, Magnesium Level 2.2, Iron Level 28L, Total Iron Binding Capacity 182L, Transferrin % Saturation 15.4L, Ferritin 870H 03/10/20 06:20: Prothrombin Time 16.4H, Prothromb Time International Ratio 1.29, Estimated Mean Plasma Glucose 143H, Hemoglobin A1c 6.6 03/10/20 06:40: Urine Random Creatinine 42.4, Urine Random Sodium 69, Urine Random Urea Nitrogen 298 CBC/BMP Laboratory Tests 03/09/20 16:28 03/10/20 02:55 03/10/20 06:00 Microbiology Microbiology 03/10/20 Stool Occult Blood (ROXANA), Received Pending GME ATTESTATION GME ATTESTATION My faculty preceptor for this patient encounter was physically present during the encounter and was fully available. All aspects of the patient interview, examination, medical decision making process, and medical care plan development were reviewed and approved by the faculty preceptor. The faculty preceptor is aware and concurs with the plan as stated in the body of this note and will attest to such by his/her cosignature. ATTENDING NOTE Patient was seen and examined by me personally with the residents and students. Agree with the above assessment and plan Laura Herr DO Mar 10, 2020 07:52 DOUGLAS MERLOS MD Mar 16, 2020 09:37
[2020-03-10] MEDS ORDERED: ROSUVASTATIN 10 MG TAB (CRESTOR) PO SCH (09:00)
[2020-03-10] MEDS: ASPIRIN 81 MG ENTERIC TAB PO SCH (09:38)
[2020-03-10] MEDS: NS 1,000 ML IV SCH ×2 (10:10→20:28)
[2020-03-10] MEDS: CARVedilol 12.5 MG TAB PO SCH ×2 (10:11→20:16)
[2020-03-10 14:00] VITALS: BP 151/64
[2020-03-10] MEDS: ACETAMINOPHEN TAB 650MG DOSE (2X325MG) PO PRN (20:28)
[2020-03-10 22:00] VITALS: BP 153/65
[2020-03-11] MEDS: PIPERACILLIN/TAZOBACTAM SOD 3.375 GM in D5W MINI-BAG PLUS 50 ML IV SCH ×4 (02:07→20:03)
[2020-03-11 06:00] VITALS: BP 160/87
[2020-03-11 06:36] LABS: HEMATOCRIT 37.2 % (42.0-52.0); HEMOGLOBIN 12.2 g/dl (13.5-17.5); MEAN CORPUSCULAR HEMOGLOBIN 29.6 pg (27.0-33.0); MEAN CORPUSCULAR HGB CONC 32.8 g/dl (32.0-36.5); MEAN CORPUSCULAR VOLUME 90.3 fl (80.0-96.0); PLATELET COUNT, AUTOMATED 313 10^3/uL (150-450); RED BLOOD COUNT 4.12 10^6/uL (4.30-6.10); WHITE BLOOD COUNT 15.7 10^3/uL (4.0-10.0)
[2020-03-11 07:07] LABS: ALBUMIN 2.2 GM/DL (3.2-5.2); BILIRUBIN,TOTAL 0.9 MG/DL (0.2-1.0); CALCIUM LEVEL 8.4 MG/DL (8.8-10.2); CREATININE FOR GFR 1.26 MG/DL (0.70-1.30); GLOMERULAR FILTRATION RATE 59.1 (>42); POTASSIUM SERUM 3.3 MEQ/L (3.5-5.1); TOTAL PROTEIN 6.1 GM/DL (6.4-8.2)
[2020-03-11] MEDS: ASPIRIN 81 MG ENTERIC TAB PO SCH (08:27)
[2020-03-11] MEDS: amLODIPine 5 MG TAB PO SCH ×2 (08:29→20:07)
[2020-03-11] MEDS: CARVedilol 12.5 MG TAB PO SCH ×2 (08:30→20:08)
[2020-03-11] MEDS ORDERED: POTASSIUM CHLORIDE 10 MEQ SR TABLET PO ONE (09:00)
--- NOTE | 2020-03-11 10:21 | IPNPDOC ---
Text Note Date of Service The patient was seen on 03/11/20. NOTE Patient was seen and examined this morning. He states that his abdominal pain is currently gone and he feels hungry. Had a bowel movement and is passing gas. PHYSICAL EXAM: GENERAL: alert and oriented, in no apparent distress, pleasant and conversant in full sentences. HEENT: PERRL, EOMI, Oral mucous membranes are moist NECK: The patient has no noted JVD. No adenopathy is appreciated. No thyromegaly CHEST/LUNGS: Lungs are clear bilaterally without rhonchi, rales, or wheezes. There is no subcutaneous air appreciated. There is no tenderness to the chest wall. HEART: No murmurs, rubs, or gallops are appreciated. Distal pulses are 2+. No carotid bruits appreciated. ABDOMEN: Soft, tender to deep palpitation in RUQ and RLQ, +BS, no organomegaly EXTREMITIES: No peripheral edema. There is no focal long bone tenderness or deformity. SKIN: The patients skin is warm and dry, without rashes or lesions. PSYCHIATRIC: AAO x 3, normal mood/affect NEUROLOGIC: The patient has 5/5 strength to the upper and lower extremities bilaterally. Sensation is intact throughout. Deep tendon reflexes are 2+ in all four extremities. There are no deficits to the cranial nerves. LABORATORY DATA: See below. CT ABD/PELVIS: 1. Polypoid densities demonstrated within the lumen of the gallbladder representing calculi or polyps. Mild thickening of the gallbladder wall. 2. There is marked diffuse peripancreatic inflammatory stranding and fluid, consistent with acute pancreatitis. Fluid extends into both anterior pararenal spaces Labs reviewed Assessment and plan This is a 79 YO M was recently admitted for choledocholithiasis s/p CBD stent placement who presents 72 hours after discharge with weakness and abnormally elevated LFTs found to have thickened gallbladder wall with stones concerning fo cholecystitis.He also has history of chronic A. fib and is on a beta mayte as well as Eliquis, which is on hold for possible intervention by surgery. [facility]. Currently only conservative management with antibiotics and the patient can be scheduled as an outpatient for possible cholecystectomy. The patient has been afebrile but continues to have leukocytosis of 15,000. Blood cultures have been ordered. We will continue to trend his liver function as well as white count and continue Zosyn at this time. We will talk to surgery as well today for starting him on clear liquid diet. Also, he will need to follow with GI for possible removal of this CBD stent.. He also had mild AK and for that reason, his LIZBET inhibitor is on hold. 1. Abnormal liver enzymes: Initial concern for ascending cholangitis were ruled out as no fever or jaundice vs cholecystitis. The LFTs have been stable with AST and ALTs in 200s and normal bilirubin. CT abdomen as above. Patient is currently afebrile and hematologically stable. Surgery consulted and as per them conservative management at this time. If the patient's liver enzyme deteriorate or the patient becomes febrile, GI might to take the stent out as well. Continue to follow 2. Acute gallstone pancreatitis. Lipase was [address] scan also was showing possible pancreatitis. This could have been a gallstone hepatitis as well. Given this, the patient definitely requires a cholecystectomy sooner or later. Dr. Loo has been consulted and as per him. Conservative management at this time. Lipase has been trending down to 662 from 750. Patient has good bowel sounds and abdomen is completely benign. We'll start that after talking to surgery. 3 GE. Baseline around 1, and currently it has been trending down 0.2. Avoid nephrotoxic drugs. 4. HTN. Continue home Amlodipin, Holding ACEi due to GE 7. Hx of Chronic atrial fibrillation. Will continue his Eliquis today as conservative management as per surgery for now. Continue Coreg 8. Hx CAD: Continue Crestor. Resume aspirin as well. 9. HFpEF. Continue Coreg. Hold on Lasix DVT and GI prophylaxis Disposition unknown at this time VS,Nieves, I+O VS, Álvarobone, I+O Laboratory Tests 03/11/20 06:00 Vital Signs Date Time Temp Pulse Resp B/P (MAP) Pulse Ox O2 Delivery O2 Flow Rate FiO2 03/11/20 08:30 56 03/11/20 08:29 156/65 03/11/20 06:00 100.0 17 95 Room Air I&O- Last 24 Hours up to 6 AM 03/11/20 06:00 Intake Total 1438 ml Output Total 1600 ml Balance -162 ml DOUGLAS MERLOS MD Mar 11, 2020 10:21
[2020-03-11 14:00] VITALS: BP 150/60
[2020-03-11] MEDS: NS 1,000 ML IV SCH (20:09)
[2020-03-11 22:00] VITALS: BP 158/62
[2020-03-12] MEDS: PIPERACILLIN/TAZOBACTAM SOD 3.375 GM in D5W MINI-BAG PLUS 50 ML IV SCH ×4 (01:28→20:05)
[2020-03-12] MEDS: ONDANSETRON 4MG/2ML VIAL IV PRN (01:28)
[2020-03-12] MEDS: ACETAMINOPHEN TAB 650MG DOSE (2X325MG) PO PRN (01:29)
[2020-03-12 06:00] VITALS: BP 164/68
[2020-03-12 06:27] LABS: HEMOGLOBIN 12.8 g/dl (13.5-17.5); MEAN CORPUSCULAR HEMOGLOBIN 29.9 pg (27.0-33.0); MEAN CORPUSCULAR HGB CONC 33.7 g/dl (32.0-36.5); MEAN CORPUSCULAR VOLUME 88.8 fl (80.0-96.0); PLATELET COUNT, AUTOMATED 305 10^3/uL (150-450); RED BLOOD COUNT 4.28 10^6/uL (4.30-6.10); WHITE BLOOD COUNT 17.8 10^3/uL (4.0-10.0)
[2020-03-12 07:13] LABS: ALBUMIN 2.1 GM/DL (3.2-5.2); ALT/SGPT 156 U/L (12-78); BLOOD UREA NITROGEN 12 MG/DL (7-18); CALCIUM LEVEL 8.8 MG/DL (8.8-10.2); CARBON DIOXIDE LEVEL 23 MEQ/L (21-32); CHLORIDE LEVEL 105 MEQ/L (98-107); CREATININE FOR GFR 1.08 MG/DL (0.70-1.30); GLOMERULAR FILTRATION RATE > 60.0 (>42); GLUCOSE, FASTING 217 MG/DL (70-100); SODIUM LEVEL 135 MEQ/L (136-145); TOTAL PROTEIN 6.7 GM/DL (6.4-8.2)
[2020-03-12] MEDS: ASPIRIN 81 MG ENTERIC TAB PO SCH (08:16)
[2020-03-12] MEDS: CARVedilol 12.5 MG TAB PO SCH ×2 (08:21→20:05)
[2020-03-12] MEDS: amLODIPine 5 MG TAB PO SCH ×2 (08:21→20:06)
[2020-03-12] MEDS ORDERED: POTASSIUM CHLORIDE 10 MEQ SR TABLET PO ONE ×2 (09:00→12:45)
[2020-03-12 14:00] VITALS: BP 142/64
[2020-03-12 16:16] LABS: MAGNESIUM LEVEL 1.9 MG/DL (1.8-2.4); POTASSIUM SERUM 3.8 MEQ/L (3.5-5.1)
--- NOTE | 2020-03-12 16:50 | IPNPDOC ---
Date Seen The patient was seen on 03/12/20. Progress Note SUBJECTIVE: Yusuf was seen and examined this morning by the hospitalist service while sitting on the side of his bed. Overnight, there was a 10-15 minute period during which cardiac events were logged on telemetry - - bigeminy. Patient states that during this time period, he was leaned over and retching due to nausea. He reports no emesis and states he never had any chest pain, palpitations, or chest pressure during this episode. The night hospitalist service evaluated the monitor events and ordered an EKG that was unchanged from previous EKGs during this admission - - consistent right bundle branch block with some ST and T-wave abnormalities. He was started on a clear liquid diet yesterday morning the hospital service and subsequently was advanced to a low-fat diet yesterday evening by his associate professor of surgery, Dr. Crockett. He reports having macaroni and cheese for dinner, which is the first throughout. He has had in roughly 1-1/2 weeks. It was after the mac & cheese that he came nauseous. He did, however, tolerate his breakfast of eggs this morning without any issue. His last bowel movement was last evening and he continues to have eructation and flatus. He denies any current or overnight fever, chills, night sweats, chest pain, palpitations, shortness of breath, abdominal pain, vomiting, or diarrhea. He denies any melena, hematochezia, or hematemesis OBJECTIVE PHYSICAL EXAMINATION: VITAL SIGNS: Please see below. GENERAL: Pleasant, elderly male seated upright on side of bed. No acute distress. Alert and oriented 3. HEENT: Normocephalic, atraumatic. PERRLA. Some scant scleral icterus. No significant conjunctival pallor. Somewhat dry mucous membranes. CARDIOVASCULAR: Currently on telemetry. Borderline bradycardic rate, regular rhythm. No murmurs, rubs or gallops appreciated. 2+ radial pulses bilaterally. No significant JVD. RESPIRATORY: Clear to auscultation bilaterally without appreciated adventitious breath sounds. Symmetric chest expansion. Breathing room air. Speaking full sentences. ABDOMINAL: Soft, nondistended. Normoactive bowel sounds throughout. Mild tenderness of right upper quadrant with negative Uriarte sign. No guarding or rigidity, nor hepatosplenomegaly appreciated. EXTREMITIES: Lower extremities are free of edema bilaterally. No clubbing or cyanosis. NEUROLOGICAL: Awake, alert and oriented 3. Responds appropriate to questions a nd commands. Non-dysarthric speech. No focal deficits appreciated. PSYCHOLOGICAL: Mood and affect appear appropriate LABORATORY DATA, IMAGING STUDIES, MICROBIOLOGY: CT Abdomen/pelvis w/ IV contrast only, 03/09/2020- Polypoid densities demonstrated within the lumen of the gallbladder representing calculi or polyps. Mild thickening of the gallbladder wall. Clinical correlation to exclude cholecystitis suggested. There is a diffuse decrease in hepatic parenchymal density, consistent with steatosis. There is marked diffuse peripancreatic inflammatory stranding and fluid, consistent with acute pancreatitis. Fluid extends into both anterior pararenal spaces. A small hiatal hernia is present. Marked prostatic hyperplasia. Abdominal Xray, 03/09/2020- Mildly dilated loops of small bowel with air-fluid levels consistent with a ileus or small-bowel obstruction. For further information, please see below. ASSESSMENT AND PLAN: This is a 79yo male w/ h/o HFpEF, chronic Afib on eliquis, CAD, and htn, who was recently admitted for choledocolithiasis and received placement of CBD stent s/p ercp and subsequently presented 72 hours later post-03/06 discharge with cc of weakness. Found to have elevated LFTs w/ imaging showing thickened GB wall w/ stones and signs consistent w/ pancreatitis. Initial lipase was 769 and he was started on gentle IVF in setting of HFpEF and kept npo. He's had consistent leukocytosis throughout admission staying around 15, while LFTs have remained elevated but conitnued to downtrend on a daily basis. General Sx evaluated patient and recommended conservative management with outpatient f/u to arrange possible cholecystectomy. GI will follow as outpatient at 04/06 visit to address possible removal of cbd stent. #Acute gallstone pancreatitis with leukocytosis in setting of choledocholithiasis last week s/p ERCP and CBD stent placement -had been npo since admission, but was started on CLD yesterday morning (03/11) and advanced to low-fat diet yesterday evening by gastroenterology (Dr. Crockett). Some nausea last night after first meal in 1.5 weeks, but none since. -has been seen and evaluated by general surgery (Dr. Loo) who recommends conservative management at this time and outpatient f/u in three weeks. Gallbladder likely will need to be removed as the result of consistent symptomatic gallstones. -Lipase was 769 on admission and decreased to 662 two days later. Pt has been receiving gentle IVF hydration throughout in setting of his HFpEF. C/w NS running at 50 mL/hr. -c/w Zosyn (Day #3) per recommendations of GI -WBC has remained elevated throughout this admission. Days 1-3 was around 15, but bumped this morning (Day 4) to 17.8. Pt has remained afebrile and hemodynamically stable throughout. WBC uptick could be secondary to a possible abdominal abscess or infection associated with cbd stent. Continue to monitor CBC. -prn tylenol for pain -has outpatient GI follow-up appt with Dr. Crockett scheduled for 04/06 for possible cbd stent removal -Single bcx from 03/11 showed no growth after 24 hrs #Elevated liver enzymes -while still elevated, both AST and ALT, along with alk phos, continue to trend down -Bilirubin levels have remained wnl throughout admission -continue to monitor CMP -No jaundice or fever during this admission concerning for possible ascending cholangitis or acute cholecystitis -steatohepatitis (identified on 03/09 ct study) could be contributing factor to elevation -home rosuvastatin held on 03/10 #Hypokalemia -likely secondary to 1.5 weeks of npo status/limited po intake; in addition to four days of NS fluid hydration -sK this morning of 3.0; two, 40 mEq PO KCl tablets administered today with f/u sK of 3.8. Afternoon (03/12) sMg level was 1.9 -continue to monitor CMP -c/w remote telemetry; 10-15 minutes of bigeminy on tele overnight occurred coterminous with nausea and wretching episode, with repeat ekg significantly unchanged from priors #Leukocytosis -WBC has remained elevated throughout this admission. Days 1-3 was around 15, but bumped this morning (Day 4) to 17.8. Pt has remained afebrile and hemodynamically stable throughout. WBC uptick could be secondary to a possible abdominal abscess or infection associated with recently placed cbd stent. Cont inue to monitor CBC. #Normocytic anemia -this is a mild anemia (Hgb this morning 12.8) with a hemoglobin that has remained stable since admission -stool occult negative earlier in admission -potentially 2/2 significantly decreased po intake over the past two weeks while an inpatient; has been npo vast majority of last two weeks #Acute renal failure, resolved -upon review of record, bl sCr is about 1 and he presented on this admission with sCr of 1.37. sCr was also elevated during last week's admission -home ACEI was held in the setting of GE. We will continue to hold with likely administration resumption upon discharge. #HFpEF -has been compensated on exam throughout admission; remains hemodynamically stable -c/w home coreg and 81 qd asa; coreg was held this morning (03/12) per holding parameters due to hr of 58 -c/w remote telemetry; has been sinus bradycardia with widened qrs and rbbb fairly consistently throughout admission #Chronic atrial fibrillation on Eliquis -Eliquis was held upon admission in anticipation of possible surgical intervention. With conservative management the treatment method of choice, eliquis administration was resumed today -hr has consistently been bradycardic during admission -c/w telemetry #History of CAD -c/w home 81 mg ASA -home rosuvastatin held 03/10 in setting of elevated LFTs -c/w telemetry #Hypertension -pressures have remained relatively well-controlled during admission -c/w home amlodipine -home lisinopril was held on admission in setting of GE, which has been present on both admissions over last 2 weeks. sCr has returned to BL of 1, and consider resumption of ACEI upon discharge #Prostatic hyperplasia -identified on 03/09 CT abd/pel -pt denies significant urinary sxs at this time #Steatohepatits -identified on 03/09 ct abd/pel #DVT prophylaxis: home eliquis restarted today after being held in preparation of possible surgical intervention DISPOSITION: Pending continued tolerance of diet advancement and discontinuation of IV ABx with likely discharge in 24-48 hours GME ATTESTATION My faculty preceptor for this patient encounter was physically present during the encounter and was fully available. All aspects of the patient interview, examination, medical decision making process, and medical care plan development were reviewed and approved by the faculty preceptor. The faculty preceptor is aware and concurs with the plan as stated in the body of this note and will attest to such by his/her cosignature. ATTENDING NOTE I examined the patient and discussed the plan as noted above by the resident physician. VS, I&O, 24H, Fishbone Vital Signs/I&O Vital Signs Date Time Temp Pulse Resp B/P (MAP) Pulse Ox O2 Delivery O2 Flow Rate FiO2 03/12/20 14:00 96.9 58 16 142/64 (90) 97 Room Air I&O- Last 24 Hours up to 6 AM 03/12/20 06:00 Intake Total 1645 ml Output Total 2625 ml Balance -980 ml Laboratory Data 24H LABS Laboratory Tests 2 03/12/20 06:03: Nucleated Red Blood Cells % (auto) 0.0, Anion Gap 7L, Glomerular Filtration Rate > 60.0, Calcium Level 8.8, Total Bilirubin 1.0, Aspartate Amino Transf (AST/SGOT) 52H, Alanine Aminotransferase (ALT/SGPT) 156H, Alkaline Phosphatase 255H, Total Protein 6.7, Albumin 2.1L, Albumin/Globulin Ratio 0.5 CBC/BMP Laboratory Tests 03/12/20 06:03 Microbiology Microbiology 03/11/20 Blood Culture - Preliminary, Resulted No growth after 24 hours . All specim... 03/10/20 Stool Occult Blood (ROXANA) - Final, Complete SUMI AUGUSTIN D.O. Mar 12, 2020 16:50 LISHA FUENTES MD Mar 13, 2020 07:15
[2020-03-12] MEDS: NS 1,000 ML IV SCH (17:53)
[2020-03-12] MEDS ORDERED: APIXABAN 5 MG TAB (ELIQUIS) PO SCH (21:00)
[2020-03-12 22:00] VITALS: BP 154/76
[2020-03-13] VITALS (12 sets, daily range): BP systolic 143–198; BP diastolic 58–87
[2020-03-13] MEDS: ACETAMINOPHEN TAB 650MG DOSE (2X325MG) PO PRN (00:47)
[2020-03-13] MEDS: PIPERACILLIN/TAZOBACTAM SOD 3.375 GM in D5W MINI-BAG PLUS 50 ML IV SCH ×4 (01:18→20:07)
[2020-03-13] MEDS: ONDANSETRON 4MG/2ML VIAL IV PRN (05:39)
[2020-03-13] MEDS ORDERED: PINK BISMUTH SUSP 524MG/30ML ORAL SYRINGE PO PRN (05:45)
[2020-03-13 05:57] LABS: HEMOGLOBIN 12.8 g/dl (13.5-17.5); MEAN CORPUSCULAR HEMOGLOBIN 29.8 pg (27.0-33.0); MEAN CORPUSCULAR HGB CONC 33.7 g/dl (32.0-36.5); MEAN CORPUSCULAR VOLUME 88.4 fl (80.0-96.0); PLATELET COUNT, AUTOMATED 316 10^3/uL (150-450); WHITE BLOOD COUNT 19.3 10^3/uL (4.0-10.0)
[2020-03-13 06:16] LABS: ALBUMIN 2.3 GM/DL (3.2-5.2); ALT/SGPT 215 U/L (12-78); BILIRUBIN,TOTAL 1.3 MG/DL (0.2-1.0); BLOOD UREA NITROGEN 12 MG/DL (7-18); CARBON DIOXIDE LEVEL 24 MEQ/L (21-32); CHLORIDE LEVEL 103 MEQ/L (98-107); CREATININE FOR GFR 1.08 MG/DL (0.70-1.30); GLOMERULAR FILTRATION RATE > 60.0 (>42); GLUCOSE, FASTING 199 MG/DL (70-100); POTASSIUM SERUM 3.4 MEQ/L (3.5-5.1); SODIUM LEVEL 133 MEQ/L (136-145); TOTAL PROTEIN 7.1 GM/DL (6.4-8.2)
[2020-03-13] MEDS ORDERED: traMADol 50 MG TAB PO PRN ×2 (07:30→10:45)
[2020-03-13] MEDS ORDERED: POTASSIUM CHLORIDE 10 MEQ SR TABLET PO ONE (09:00)
[2020-03-13] MEDS: ASPIRIN 81 MG ENTERIC TAB PO SCH (09:14)
[2020-03-13] MEDS: amLODIPine 5 MG TAB PO SCH ×2 (09:17→20:08)
[2020-03-13] MEDS: CARVedilol 12.5 MG TAB PO SCH ×2 (09:18→20:08)
[2020-03-13 10:17] LABS: LIPASE 2354 U/L (73-393)
--- NOTE | 2020-03-13 10:40 | IPNPDOC ---
Text Note Date of Service The patient was seen on 03/13/20. NOTE SUBJECTIVE: -Tmax overnight of 100 -Worsening abdominal pain starting overnight after tolerating low fat diet yesterday, this morning has 9/10 abdominal pain overnight that is diffuse in the abdomen and worst in the epigastrium -No chills, night sweats, chest pain, palpitations, shortness of breath, abdominal pain, vomiting, or diarrhea. OBJECTIVE PHYSICAL EXAMINATION: VITAL SIGNS: Please see below. GENERAL: No acute distress. Alert and oriented 3. Obese HEENT: NCAT. PERRLA. MMM CARDIOVASCULAR: RRR, no mrg RESPIRATORY: CTAB ABDOMINAL: Obese, normoactive, soft, TTP in RUQ, no josh +Uriarte's. No guarding or rebound EXTREMITIES: No LE edema, WWP NEUROLOGICAL: AO 3. Clear speech. No focal deficits appreciated. LABORATORY DATA: WBC now up to 19.3 Hgb 12.8 platelets 316 na 133 K 3.4 (repleted) Cr 1.08 AST 134 (rising) ALT 215 (rising) T bili 1.3 Alk phos 586 (rising) lipase uptrended to 2354 IMAGING STUDIES, MICROBIOLOGY: CT Abdomen/pelvis w/ IV contrast only, 03/09/2020- Polypoid densities demonstrated within the lumen of the gallbladder representing calculi or polyps. Mild thickening of the gallbladder wall. Clinical correlation to exclude cholecystitis suggested. There is a diffuse decrease in hepatic parenchymal density, consistent with steatosis. There is marked diffuse peripancreatic inflammatory stranding and fluid, consistent with acute pancreat itis. Fluid extends into both anterior pararenal spaces. A small hiatal hernia is present. Marked prostatic hyperplasia. Abdominal Xray, 03/09/2020- Mildly dilated loops of small bowel with air-fluid levels consistent with a ileus or small-bowel obstruction. For further information, please see below. ASSESSMENT AND PLAN: 79yo M w/ h/o HFpEF, chronic Afib on eliquis, CAD, and htn, who was recently admitted for choledocolithiasis s/p ERCP and CBD stent and subsequently presented 72 hours later post-03/06 discharge with profound weakness and found to have worsening LFTs w/ imaging showing thickened GB wall w/ stones and signs consistent w/ pancreatitis. Initial lipase was 769 and he was started on gentle IVF with persistent leukocytosis throughout with LFTs that started to downtrend, that are now rising after re-introduction of PO. General Sx evaluated patient and recommended conservative management with outpatient f/u to arrange possible cholecystectomy. Will call GI about the rising LFTs and worsening pancreatitis. #Acute gallstone pancreatitis in setting of choledocholithiasis 1 week prior s/p ERCP and CBD stent placement -will make him NPO except for meds given the rising LFTs, will call GI, will hold eliquis for now -has been seen and evaluated by general surgery (Dr. Loo) who recommended conservative management at this time and outpatient f/u in three weeks for cholecystectomy for consistent symptomatic gallstones. -Lipase was 769 on admission and decreased to 662 two days later. s/p gentle IVF hydration, now on NS at 50 mL/hr. Lipase on AM labs now >2000. Will increase fluids to 100cc/hr -c/w Zosyn (Day #4) per recommendations of GI -morphine 2mg IV Q4HP for severe pain, tramadol [id number] for moderate pain -had been scheduled for outpatient GI follow-up appt with Dr. Crockett scheduled for 04/06 for possible cbd stent removal but will call him today for rising l eukocytosis and LFTs -Had negative BCx -PRN Tylenol for fevers #Cholestatic liver injury -Rising AST, ALT, Alk phos, with unremarkable bili -continue daily CMP -had a temp of 100 overnight, will hold off tylenol for pain that may be masking a fever, and use tramadol for pain -home rosuvastatin held on 03/10? Unlikely contributing to this clear biliary tree pathology driven cholestatic injury #Hypokalemia -repleted -On telemetry for ectopy #Acute renal failure, resolved -home ACEI was held in the setting of GE. We will continue to hold with likely resumption upon discharge. #HFpEF -has been compensated on exam throughout admission; remains hemodynamically stable -c/w home coreg and 81 qd asa; coreg was held this morning (03/12) per holding parameters due to hr of 58 -c/w remote telemetry; has been sinus bradycardia with widened qrs and rbbb fairly consistently throughout admission, with some significant ectopy overnight on 03/12 #Chronic atrial fibrillation on Eliquis -Eliquis was held upon admission in anticipation of possible surgical intervention and resumed on 03/12. However will hold this morning, given rising LFTs and worsening leukocytosis. -c/w telemetry #History of CAD -c/w home 81 mg ASA -home rosuvastatin held 03/10 in setting of elevated LFTs. -c/w telemetry #Hypertension -pressures have remained relatively well-controlled during admission -c/w home amlodipine -home lisinopril was held on admission in setting of GE, which has been present on both admissions over last 2 weeks. Will resume at discharge #Prostatic hyperplasia -identified on 03/09 CT abd/pel -pt denies significant urinary sxs at this time #Steatohepatits -identified on 03/09 ct abd/pel #DVT prophylaxis: TEDs and SCDs DISPOSITION: Inpatient VS,Fishbone, I+O VS, Fishbone, I+O Laboratory Tests 03/12/20 15:39 03/13/20 05:29 Vital Signs Date Time Temp Pulse Resp B/P (MAP) Pulse Ox O2 Delivery O2 Flow Rate FiO2 03/13/20 06:00 97.6 57 16 176/78 (110) 99 Room Air I&O- Last 24 Hours up to 6 AM 03/13/20 06:00 Intake Total 2300 ml Output Total 1575 ml Balance 725 ml LISHA FUENTES MD Mar 13, 2020 07:56
[2020-03-13] MEDS ORDERED: MORPHINE 2 MG/ML 1ML VIAL (J2270) IV PRN (10:45)
--- NOTE | 2020-03-13 12:13 | ECGEPIP ---
[facility] Test Date: 2020-03-12 Pat Name: ELLIS OSPINA Department: Room: [place] [address] Gender: Male [employer]: PAOLA TINEO : 1940 Requested By: SHANELL VIEYRA Order Number: [id number] Reading MD: Erlin Avendaño Measurements Intervals [place] Rate: 51 P: 37 AK: 230 QRS: -19 QRSD: 181 T: -23 QT: 493 QTc: 456 Interpretive Statements SINUS BRADYCARDIA WITH FIRST DEGREE AV BLOCK RIGHT BUNDLE BRANCH BLOCK POSSIBLE INFERIOR MYOCARDIAL INFARCTION, OF INDETERMINATE AGE No prior tracing in the system Electronically Signed on 03-13-2020 12:13:52 EDT by Erlin Avendaño
[2020-03-13] MEDS ORDERED: MORPHINE 4 MG/ML 1ML VIAL/SYRINGE (J2270) IV ONE (12:30)
[2020-03-13] MEDS: NS 1,000 ML IV SCH (13:09)
[2020-03-13] MEDS ORDERED: MORPHINE 4 MG/ML 1ML VIAL/SYRINGE (J2270) IV PRN (14:45)
[2020-03-13] MEDS ORDERED: ISOVUE-300 61% 50ML VIAL As Ordered ONE (14:47)
[2020-03-13] MEDS ORDERED: fentaNYL 100 MCG/2 ML INJECTION (J3010) As Ordered ONE ×2 (15:26→17:06)
[2020-03-13] MEDS ORDERED: dexameTHASONE 4 MG/ML 1ML VIAL (J1100 PER 1MG) As Ordered ONE (15:26)
[2020-03-13] MEDS ORDERED: MIDAZOLAM INJ 2MG/2ML VIAL (J2250 PER 1MG) As Ordered ONE (15:26)
[2020-03-13] MEDS ORDERED: SUGAMMADEX SODIUM 500 MG/5 ML VIAL (BRIDION) As Ordered ONE (15:26)
[2020-03-13] MEDS ORDERED: LIDOCAINE 2% 100MG/5ML SDV (FOR ANES.) As Ordered ONE (15:26)
[2020-03-13] MEDS ORDERED: ROCURONIUM BROMIDE 50 MG/5 ML VIAL As Ordered ONE (15:26)
[2020-03-13] MEDS ORDERED: propofoL 200 MG/20 ML VIAL As Ordered ONE (15:26)
[2020-03-13] MEDS ORDERED: ONDANSETRON 4MG/2ML VIAL As Ordered ONE ×2 (15:26→16:31)
[2020-03-13] MEDS ORDERED: METOCLOPRAMIDE INJ 10MG/2ML VIAL (J2765 PER 1) As Ordered ONE (15:26)
--- NOTE | 2020-03-13 16:12 | ROOR ---
Patient Name: Yusuf Haney Procedure Date: 03/13/2020 1:51 PM Date of : 1940 Age: 79 Room: Main OR Gender: Male Note Status: Finalized Procedure: ERCP Indications: Gallstone associated acute pancreatitis, Bile duct stone(s), Jaundice, Elevated liver enzymes, Eval for possible Stent failure, for exchange. (Pt is on Eliquis) Providers: Chris JIANG MD Referring MD: 2. Inpatient 2. Inpatient, Isidoro Stevenson MD Requesting Provider: Medicines: Monitored Anesthesia Care, General Anesthesia Complications: No immediate complications. Procedure: Pre-Anesthesia Assessment: - The heart rate, respiratory rate, oxygen saturations, blood pressure, adequacy of pulmonary ventilation, and response to care were monitored throughout the procedure. The Duodenoscope was introduced through the mouth, and advanced to the duodenum and used to inject contrast into the bile duct. The ERCP was accomplished without difficulty. The patient tolerated the procedure well. Findings: A biliary stent was visible on the solar sales estimator film. The esophagus was successfully intubated under direct vision without detailed examination of the pharynx, larynx, and associated structures, and upper GI tract. The upper GI tract was grossly normal. One plastic stent originating in the common bile duct was emerging from the major papilla. The stent was migrated out of papilla by several cm, likely nonfunctional. One stent was removed from the biliary tree using a rat-toothed forceps. The major papilla was located entirely within a diverticulum. A straight Roadrunner wire was passed into the biliary tree. The bile duct was then deeply cannulated over the guidewire. Contrast was injected. I personally interpreted the bile duct images. Ductal flow of contrast was adequate. Image quality was adequate. Opacification of the main bile duct was successful. The maximum diameter of the ducts was 10 mm. The main bile duct contained multiple stones, the largest of which was 8 mm in diameter. One 10 mm by 6 cm covered metal stent was placed into the common bile duct. Bile and sludge flowed through the stent. The stent was in good position. Impression: - The previously placed plastic stent has migrated almost completely out of the bile duct and is likely nonfunctional in this position. This stent was removed and replaced with a covered wall stent. - One covered 10mm x 6 cm metal wall stent was placed into the common bile duct. - The major papilla was located entirely within a shallow diverticulum. - Choledocholithiasis was found. Removal was not attempted; a covered wall stent was inserted. Recommendation: - Repeat ERCP in ~4 months to remove stones and stent. - Refer to a surgeon at appointment to be scheduled. - Observe patient's clinical course following today's ERCP with therapeutic intervention. - Return to my office as previously scheduled. Chris Jiang MD Chris JIANG MD 03/13/2020 4:12:36 PM Electronically signed by Chris JIANG MD Number of Addenda: 0 Note Initiated On: 03/13/2020 1:51 PM Estimated Blood Loss: Estimated blood loss: none.
[2020-03-13] MEDS ORDERED: oxyCODONE 5MG TAB PO PRN (16:45)
[2020-03-13] MEDS ORDERED: fentaNYL 100 MCG/2 ML INJECTION (J3010) IV PRN (16:45)
[2020-03-13] MEDS ORDERED: MEPERIDINE INJ 25 MG/ML VIAL (J2175) IV PRN (16:45)
[2020-03-13] MEDS ORDERED: LR 1,000 ML IV SCH (16:45)
[2020-03-13] MEDS ORDERED: METOCLOPRAMIDE INJ 10MG/2ML VIAL (J2765 PER 1) IV PRN (16:45)
[2020-03-13] MEDS ORDERED: ONDANSETRON 4MG/2ML VIAL IV PRN (16:45)
[2020-03-13] MEDS ORDERED: hydrALAZINE 20MG/ML 1ML VIAL (J0360 PER 20MG) As Ordered ONE (16:53)
[2020-03-13] MEDS: hydrALAZINE 20MG/ML 1ML VIAL (J0360 PER 20MG) IV PRN ×3 (16:55→17:05)
[2020-03-13 22:46] LABS: BASO % 0.1 % (0.0-1.0); HEMATOCRIT 37.8 % (42.0-52.0); HEMOGLOBIN 12.7 g/dl (13.5-17.5); LYMPH # 0.6 10^3/uL (1.5-5.0); LYMPH % 2.2 % (24.0-44.0); MEAN CORPUSCULAR HEMOGLOBIN 29.6 pg (27.0-33.0); MEAN CORPUSCULAR HGB CONC 33.6 g/dl (32.0-36.5); MEAN CORPUSCULAR VOLUME 88.1 fl (80.0-96.0); MONO # 1.1 10^3/uL (0.0-0.8); MONO % 4.1 % (0.0-5.0); NEUTROPHILS # 23.9 10^3/uL (1.5-8.5); NEUTROPHILS % 92.9 % (36.0-66.0); PLATELET COUNT, AUTOMATED 305 10^3/uL (150-450); RED BLOOD COUNT 4.29 10^6/uL (4.30-6.10); WHITE BLOOD COUNT 25.8 10^3/uL (4.0-10.0)
[2020-03-13 23:22] LABS: ALBUMIN 2.1 GM/DL (3.2-5.2); ALT/SGPT 150 U/L (12-78); BILIRUBIN,TOTAL 1.1 MG/DL (0.2-1.0); BLOOD UREA NITROGEN 15 MG/DL (7-18); CALCIUM LEVEL 8.1 MG/DL (8.8-10.2); CARBON DIOXIDE LEVEL 21 MEQ/L (21-32); CHLORIDE LEVEL 104 MEQ/L (98-107); CREATININE FOR GFR 1.05 MG/DL (0.70-1.30); GLOMERULAR FILTRATION RATE > 60.0 (>42); GLUCOSE, FASTING 300 MG/DL (70-100); LIPASE 2486 U/L (73-393); POTASSIUM SERUM 3.8 MEQ/L (3.5-5.1); SODIUM LEVEL 135 MEQ/L (136-145); TOTAL PROTEIN 6.1 GM/DL (6.4-8.2)
--- NOTE | 2020-03-13 23:41 | REPVR ---
PROCEDURE INFORMATION: Exam: XR Chest, 2 Views Exam date and time: 03/13/2020 11:05 PM Age: 79 years old Clinical indication: Shortness of breath; Additional info: SOB TECHNIQUE: Imaging protocol: XR of the chest Views: 2 views. COMPARISON: CR Abdomen,Flat Upright,PA CHEST 03/09/2020 4:41 PM FINDINGS: Tubes, catheters and devices: Stable left chest cardiac device. Lungs: Mild right basilar atelectasis. Lung bennett are otherwise clear. Pleural space: Small left-sided pleural effusion. Heart/Mediastinum: Stable cardiac silhouette. Diaphragm: Elevation of the right hemidiaphragm, stable. Bones/joints: There are degenerative changes involving the spine. IMPRESSION: Small left-sided pleural effusion. Electronically signed by: Vladislav Lopez On 03/13/2020 23:40:34 PM
[2020-03-14] VITALS (7 sets, daily range): BP systolic 111–120; BP diastolic 68–76
[2020-03-14] MEDS: NS 1,000 ML IV SCH ×4 (01:00→14:14)
[2020-03-14 01:21] LABS: CK-MB VALUE MASS 1.3 NG/ML (<3.6); CPK CREATINE PHOSPHOKINASE 33 U/L (39-308); MB/CK RELATIVE INDEX 3.94 (< OR =4); THYROID STIMULATING HORMONE 0.346 uIU/ML (0.358-3.740); TROPONIN I < 0.02 NG/ML (< 0.10)
[2020-03-14] MEDS: PIPERACILLIN/TAZOBACTAM SOD 3.375 GM in D5W MINI-BAG PLUS 50 ML IV SCH ×3 (01:58→14:14)
[2020-03-14] MEDS ORDERED: CALCIUM CARBONATE 500 MG CHEW U/D PO ONE (03:30)
[2020-03-14 06:00] LABS: HEMATOCRIT 35.4 % (42.0-52.0); HEMOGLOBIN 11.7 g/dl (13.5-17.5); MEAN CORPUSCULAR HEMOGLOBIN 29.5 pg (27.0-33.0); MEAN CORPUSCULAR HGB CONC 33.1 g/dl (32.0-36.5); MEAN CORPUSCULAR VOLUME 89.2 fl (80.0-96.0); PLATELET COUNT, AUTOMATED 293 10^3/uL (150-450); RED BLOOD COUNT 3.97 10^6/uL (4.30-6.10); WHITE BLOOD COUNT 27.3 10^3/uL (4.0-10.0)
[2020-03-14 06:21] LABS: ALT/SGPT 121 U/L (12-78); BLOOD UREA NITROGEN 17 MG/DL (7-18); CALCIUM LEVEL 8.1 MG/DL (8.8-10.2); CARBON DIOXIDE LEVEL 23 MEQ/L (21-32); CHLORIDE LEVEL 104 MEQ/L (98-107); CREATININE FOR GFR 1.12 MG/DL (0.70-1.30); GLOMERULAR FILTRATION RATE > 60.0 (>42); GLUCOSE, FASTING 255 MG/DL (70-100); POTASSIUM SERUM 3.7 MEQ/L (3.5-5.1); SODIUM LEVEL 136 MEQ/L (136-145); TOTAL PROTEIN 5.6 GM/DL (6.4-8.2)
[2020-03-14 07:42] LABS: LIPASE 1160 U/L (73-393)
--- NOTE | 2020-03-14 08:10 | IPNPDOC ---
Text Note Date of Service The patient was seen on 03/14/20. NOTE No complaints this am. He feels much better than he did yesterday. He did have elevated liver enzymes and lipase, and increased abd pains over the weekend. Yesterday he had an ERCP which showed choledocholithiasis and migrated stent. After new stent placement, he is feeling much improved today. afebrile, tachy in the 120's NAD abd - soft, TTP epigastric only, no rebound or guarding, slight distention labs - below, LFTs and lipase are trending down WBC - 27.3 A) 79y/o m with gallstone pancreatitis and choledocholithiasis POD#1 s/p ercp P) urgent CT to rule out abscess or necrotizing pancreatitis due to tachycardia and leukocytosis NPO IVF abx monitor for ileus closely due to abd distention and peritoneal inflammation, will place NG with any emesis Kenrick Loo DO VS,Nieves, I+O VS, Nieves, I+O Laboratory Tests 03/13/20 22:36 03/14/20 05:35 Vital Signs Date Time Temp Pulse Resp B/P (MAP) Pulse Ox O2 Delivery O2 Flow Rate FiO2 03/14/20 06:00 99.3 126 28 115/70 (85) 100 Nasal Cannula 2.0 I&O- Last 24 Hours up to 6 AM 03/14/20 05:58 Intake Total 3440 ml Output Total 1050 ml Balance 2390 ml OBIE LOO DO Mar 14, 2020 08:09
--- NOTE | 2020-03-14 08:36 | REPVR ---
PROCEDURE INFORMATION: Exam: CT Abdomen And Pelvis Without Contrast Exam date and time: 03/14/2020 7:47 AM Age: 79 years old Clinical indication: Other: Worsening pancreatitis TECHNIQUE: Imaging protocol: Computed tomography of the abdomen and pelvis without contrast. Radiation optimization: All CT scans at this facility use at least one of these dose optimization techniques: automated exposure control; mA and/or kV adjustment per patient size (includes targeted exams where dose is matched to clinical indication); or iterative reconstruction. COMPARISON: CT ABD/PEL W/IV CONTRAST ONLY 03/09/2020 6:10 PM FINDINGS: Lungs: Linear atelectasis or scarring in left lower lobe. Pleural space: Trace bilateral pleural effusions with adjacent compressive atelectasis. Liver: Small simple cyst in the left hepatic lobe. Gallbladder and bile ducts: Common bile duct stent in place with extensive pneumobilia. Cholelithiasis. Pancreas: Findings suggestive of pancreatic necrosis with areas of apparent hemorrhage particularly in the head and neck of the pancreas. Spleen: Normal. No splenomegaly. Adrenals: Normal. No mass. Kidneys and ureters: Normal. No hydronephrosis. Stomach and bowel: Diverticulosis of the colon. No evidence of acute diverticulitis. Appendix: No evidence of appendicitis. Intraperitoneal space: Small ascites. Vasculature: Atherosclerotic disease of coronary arteries. Lymph nodes: Unremarkable. No enlarged lymph nodes. Urinary bladder: Unremarkable as visualized. Reproductive: Enlarged prostate. Bones/joints: Osteopenia. Multilevel degenerative disease and facet hypertrophy. Soft tissues: Small fat containing bilateral inguinal hernias. IMPRESSION: Findings suggestive of pancreatic necrosis with areas of apparent hemorrhage particularly in the head and neck of the pancreas. Common bile duct stent in place with extensive pneumobilia. Cholelithiasis. Electronically signed by: Brett Fuentes On 03/14/2020 08:35:52 AM
[2020-03-14] MEDS: ASPIRIN 81 MG ENTERIC TAB PO SCH (09:08)
[2020-03-14] MEDS: CARVedilol 12.5 MG TAB PO SCH (09:10)
[2020-03-14] MEDS: amLODIPine 5 MG TAB PO SCH (09:11)
--- NOTE | 2020-03-14 10:18 | IPNPDOC ---
Text Note Date of Service The patient was seen on 03/14/20. NOTE SUBJECTIVE: -Abdominal pain now better controlled -Afebrile and hemodynamically stable -Had ERCP during which his CBD stent was found to have migrated and was nonfunctional and had persistent choledocholithiasis. The old stent was removed and a new stent was placed. -No chills, night sweats, chest pain, palpitations, shortness of breath. On 2L NC this morning OBJECTIVE PHYSICAL EXAMINATION: VITAL SIGNS: Please see below. GENERAL: No acute distress. Alert and oriented 3. Obese HEENT: NCAT. PERRLA. MMM CARDIOVASCULAR: RRR, no mrg RESPIRATORY: CTAB ABDOMINAL: Obese, normoactive, soft, TTP worst in the RUQ, no josh +Uriarte's. No guarding or rebound EXTREMITIES: No LE edema, WWP NEUROLOGICAL: AO 3. Clear speech. No focal deficits appreciated. LABORATORY DATA: WBC 27.3 (rising) Hgb 11.7 platelets 293 na 36 K 3.7 Cr 1.12 AST 37 (downtrending) ALT 121 (downtrending) Alk phos 378 (downtrending) IMAGING STUDIES, MICROBIOLOGY: CT Abdomen/pelvis w/ IV contrast only, 03/09/2020- Polypoid densities demonstrated within the lumen of the gallbladder representing calculi or polyps. Mild thickening of the gallbladder wall. Clinical correlation to exclude cholecystitis suggested. There is a diffuse decrease in hepatic parenchymal density, consistent with steatosis. There is marked diffuse peripancreatic inflammatory stranding and fluid, consistent with acute pancreati tis. Fluid extends into both anterior pararenal spaces. A small hiatal hernia is present. Marked prostatic hyperplasia. Abdominal Xray, 03/09/2020- Mildly dilated loops of small bowel with air-fluid levels consistent with a ileus or small-bowel obstruction. 03/13/2020 ERCP report: - The previously placed plastic stent has migrated almost completely out of the bile duct and is likely nonfunctional in this position. This stent was removed and replaced with a covered wall stent. - One covered 10mm x 6 cm metal wall stent was placed into the common bile duct. - The major papilla was located entirely within a shallow diverticulum. - Choledocholithiasis was found. Removal was not attempted; a covered wall stent was inserted. Recommendation: - Repeat ERCP in ~4 months to remove stones and stent. - Refer to a surgeon at appointment to be scheduled. - Observe patient's clinical course following today's ERCP with therapeutic intervention. - Return to my office as previously scheduled. CT A/P 10/5 AM: Findings suggestive of pancreatic necrosis with areas of apparent hemorrhage particularly in the head and neck of the pancreas. Common bile duct stent in place with extensive pneumobilia. Cholelithiasis. ASSESSMENT AND PLAN: 79yo M w/ h/o HFpEF, chronic Afib on eliquis, CAD, and htn, who was recently admitted for choledocolithiasis s/p ERCP and CBD stent and subsequently presented 72 hours later post-03/06 discharge with profound weakness and found to have worsening LFTs w/ imaging showing thickened GB wall w/ stones and signs consistent w/ pancreatitis. Initial lipase was 769 and he was started on gentle IVF with persistent leukocytosis throughout with LFTs that started to downtrend and diet was slowly re-introduced and course was c/b worsening abdominal pain and uptrending LFTs, lipase and leukocytosis prompting an ERCP that showed stent migration and failure s/p removal and stent replacement, now improving. 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 Loo -GI also onboard #Acute gallstone pancreatitis in setting of choledocholithiasis 1 week prior s/p ERCP and CBD stent placement c/b stent migration now s/p stent replacement -on clears now post ERCP on 03/13 with stent replacement with downtrending labs -has been seen and evaluated by general surgery (Dr. Loo) who recommended conservative management at this time and outpatient f/u in three weeks for chely cystectomy for consistent symptomatic gallstones. 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 Loo -Lipase was 769 on admission and initially downtrended but re-uptrended i/s/o stent migration now s/p stent replacement and now on clears. -c/w Zosyn (Day #5) per recommendations of GI -morphine 4mg IV Q4HP for severe pain, tramadol 50Q6HP for moderate pain -Is scheduled for outpatient GI follow-up appt with Dr. Crockett on 04/06 for re- evaluation, with tentative plan for eventual cbd stent removal -Had negative BCx -PRN Tylenol for fevers #Cholestatic liver injury without hyperbilirubinemia i/s/o of choledocholiathiasis with original CBD stent migration and failure, now s/p stent replacement -Continue to monitor daily CMP, CBC -home rosuvastatin held on 03/10? Unlikely contributing to this clear biliary tree pathology driven cholestatic injury. To resume at discharge #Hypokalemia -repleted -On telemetry for recent ectopy #Acute renal failure, resolved -home ACEI was held in the setting of GE. We will continue to hold with likely resumption upon discharge. #HFpEF -has been compensated on exam throughout admission; remains hemodynamically stable -c/w home coreg and 81 qd asa; coreg was held this morning (03/12) per holding parameters due to hr of 58 -c/w remote telemetry; has been sinus bradycardia with widened qrs and rbbb fairly consistently throughout admission, with some significant ectopy overnight on 03/12 #Chronic atrial fibrillation on Eliquis -Eliquis was held upon admission in anticipation of possible surgical intervention and resumed on 03/12. However will hold this morning, given rising LFTs and worsening leukocytosis. -c/w telemetry #History of CAD -c/w home 81 mg ASA -home rosuvastatin held 03/10 in setting of elevated LFTs. -c/w telemetry #Hypertension -pressures have remained relatively well-controlled during admission -c/w home amlodipine -home lisinopril was held on admission in setting of GE, which has been present on both admissions over last 2 weeks. Will resume at discharge #Prostatic hyperplasia -identified on 03/09 CT abd/pel -pt denies significant urinary sxs at this time #Steatohepatits -identified on 03/09 ct abd/pel #DVT prophylaxis: TEDs and SCDs DISPOSITION: Inpatient VS,Fishbone, I+O VS, Fishbone, I+O Laboratory Tests 03/13/20 22:36 03/14/20 05:35 Vital Signs Date Time Temp Pulse Resp B/P (MAP) Pulse Ox O2 Delivery O2 Flow Rate FiO2 03/14/20 06:00 99.3 126 28 115/70 (85) 100 Nasal Cannula 2.0 I&O- Last 24 Hours up to 6 AM 03/14/20 06:00 Intake Total 3590 ml Output Total 1050 ml Balance 2540 ml LISHA FUENTES MD Mar 14, 2020 06:54
--- NOTE | 2020-03-14 12:53 | CR ---
DATE OF CONSULTATION: 03/11/2020 REASON FOR CONSULTATION: Cholecystitis. HISTORY OF PRESENT ILLNESS: The patient is a 79-year-old male who has had a recent history of gallstone pancreatitis. He was in the hospital over a week ago for this. He was discharged home after undergoing an ERCP due to choledocholithiasis and gallstone pancreatitis. He was discharged home on 03/06 with antibiotics, however due to elevated liver enzymes he returned back to the hospital on March 09. Imaging shows that the gallbladder still has stones in it, but otherwise it just shows signs of acute pancreatitis with inflammation around the entire pancreas. Lipase was elevated on admission, has not been trended. White count is still slightly elevated as well, otherwise this morning he is feeling much better. He denies any nausea or vomiting, no fevers or chills. No abdominal pain and he is very hungry. He does have a stent in place and was supposed to follow-up with Dr. Crockett as an outpatient to have that removed and then he was going to subsequently be referred to surgery after that to have his gallbladder out but he has not seen a surgeon up to this point. PAST MEDICAL HISTORY: Atrial fibrillation, on Eliquis, has a pacemaker in place, diastolic CHF, hypertension, hyperlipidemia, coronary artery disease. PAST SURGICAL HISTORY: Pacemaker placement and ERCP. SOCIAL HISTORY: He uses alcohol regularly around six drinks per day. Denies drug or tobacco abuse. FAMILY HISTORY: Noncontributory. ALLERGIES: None. MEDICATIONS: Please see med rec. REVIEW OF SYSTEMS: Per above and as stated in the HPI. PHYSICAL EXAMINATION: GENERAL: Alert and oriented and x3. No acute distress. VITAL SIGNS: Temperature 100, pulse is 60, respirations 17, blood pressure is 160/87, pulse oximetry is 95% on room air. HEENT: Pupils equally round and reactive to light and accommodation. HEART: S1 and S2, regular rate and rhythm. LUNGS: Clear to auscultation bilaterally. ABDOMEN: Soft, nontender and nondistended, slightly obese. EXTREMITIES: No cyanosis, clubbing or edema. LABORATORY DATA: White count 15.7, hemoglobin 12.2, platelets are 313,000. Creatinine 1.26. Potassium 3.3. AST was 137, down to 86, ALT 278, down to 221. Alkaline phosphatase is 319, down to 295. Lipase was 769 on admission, down to 662 today. IMAGING: CT of the abdomen and pelvis shows densities within the lumen of the gallbladder suggesting calculi versus polyps, mild thickening of the gallbladder wall. Decrease in hepatic parenchymal density consistent with steatosis, peripancreatic inflammatory stranding and fluid consistent with acute pancreatitis, fluid extends into both anterior pararenal spaces, small hiatal hernia and prostatic hyperplasia. ASSESSMENT AND PLAN: Patient is a 79-year-old male with acute pancreatitis secondary to gallstone pancreatitis and possibly ERCP. At this time, there is no indication for emergent surgery. Recommend to continue with antibiotics, start to slowly advance his diet and he can be discharged home once his labs are stable. Plan to follow-up with me in the office in the next two to three weeks and we will discuss outpatient cholecystectomy after he has his follow-up ERCP with Dr. Crockett. CHARLIE
--- NOTE | 2020-03-14 12:55 | CR ---
DATE OF CONSULTATION: 03/13/2020 STATUS OF PATIENT: Inpatient. REQUESTING PHYSICIAN: Hospitalist service. REASON FOR CONSULTATION: Gallstone pancreatitis. HISTORY OF PRESENT ILLNESS: Mr. Haney is a 79-year-old gentleman who was initially admitted on 02/29/2020 with gallstone pancreatitis and probable cholecystitis. On CT scan, he was found to have choledocholithiasis. He underwent an ERCP on 03/02/2020 where he was found to have choledocholithiasis. The stones were unable to be removed despite attempt with a lithotripter. His papilla is very small and it is at the bottom of a duodenal diverticulum limiting extraction of stones. Long story short, the extraction of stones was incomplete and I decided to place a biliary stent to temporize and allow his pancreatitis to resolve. He eventually improved and was discharged a few days after his ERCP. He was reportedly doing fairly well at home until 03/09/2020 when he again developed more discomfort, some nausea, he presented to his primary care physician where increasing transaminases were found and he was referred back to the emergency room (ER) for readmission. Since 03/09/2020, the patient had continued to have mild increase in lipase, his transaminases remained slightly elevated, his abdominal pain was improved as of yesterday, however overnight developed again nausea, worsening abdominal pain, and this mornings lab worked showed his bilirubin is slightly elevated, his alkaline phosphatase is mildly elevated along with his transaminases as well. At this point, I was re-called to reevaluate the patient and further assess. PAST MEDICAL HISTORY: Atrial fibrillation, congestive heart failure (CHF), hypertension, hyperlipidemia, hematuria. PAST SURGICAL HISTORY: Pacemaker placement and ERCP on 02/29/2020 with common bile duct stent placement for temporization of choledocholithiasis until gallstone pancreatitis resolves. SOCIAL HISTORY: Negative for tobacco. Positive for 3-4 alcoholic beverages per day. FAMILY HISTORY: Negative for colorectal carcinoma, inflammatory bowel disease. ALLERGIES: No known drug allergies. MEDICATIONS AT HOME: - amlodipine - amoxicillin - Eliquis - aspirin - carvedilol - furosemide - lisinopril - rosuvastatin RADIOLOGY: Previous admission and this admission reviewed. LABORATORIES: WBC 15.7, 17.8, 19.3. Hemoglobin 12.8, platelet count 317. AST is 86, 52, 134. ALT is 221, 156, 215. Alkaline phosphatase 295, 255, 586. Albumin 2.2, 2.1, 2.3. Lipase 6, 62, 2354. PT/INR 1.29. IMPRESSION: 1. Gallstone pancreatitis. 2. Cholecystitis. 3. Status post ERCP biliary stent placement for temporization of common bile duct stones. 4. Increasing symptoms of abdominal pain, increasing white count, liver enzymes suggesting the possibility of either worsening cholecystitis or failure of biliary stent. RECOMMENDATION: 1. Will proceed with repeat ERCP to exchange stent and assess for stent failure. 2. Depending on progress, will evaluate gallbladder further with HIDA scan. Further recommendations to follow. MTDD
--- NOTE | 2020-03-14 15:37 | DS.PDOC ---
Discharge Summary General Date of Admission Mar 09, 2020 at 19:53 Date of Discharge 03/14/2020 Attending Physician: LISHA FUENTES MD Specialist/Consultants Involve: IESHA JIANG MD Specialist/Consultants Involve ERAN Discharge Summary PROCEDURES PERFORMED DURING STAY: ERCP with migrated CBD stent removal and stent replacement ADMITTING DIAGNOSES: 1. Transaminitis, weakness DISCHARGE DIAGNOSES: 1. Necrotizing, hemorrhagic pancreatitis 2. Acute cholecystitis 3. Ascending cholangitis s/p replacement of CBD stent 4. Afib with RVR 5. diastolic CHF, compensated 6. History of HTN 7. HLD 8. CAD COMPLICATIONS/CHIEF COMPLAINT: Transaminitis,Weakness. HOSPITAL COURSE: 79 yo M with a hx of chronic atrial fibrillation (on eliquis), CAD, s/p PPM, HTN, who was recently admitted at [facility] for gallstone pancreatitis during which at that time admission CT abdomen showed cholelithiasis and inflammatory changes around pancreas and on 03/02/2020 had an ERCP that showed choledocholithiasis with ascending cholangitis and had a stent placed and treated wtih zosyn and later transitioned to augmentin to complete a course and was discharged to follow up with GI and surgery for eventual cholecystectomy. He returned to the hospital on 03/08 with mild abdominal pain and weakness 3d after discharge and he was found to have persistent leukocytosis to 15.7, with an AST of 198, ALT 333, T bili 0.6 and lipase of 769, with a CT A/P on 03/08 calculi within the gallbladder lumen with mild thickening of the gallbladder wall c/w cholecystitis as well as marked diffuse peripancreatic inflammatory stranding and fluid, consistent with acute pancreatitis. He was admitted to medicine for acute gallstone pancreatitis and cholecystitis and started on IVF, made NPO and placed on zosyn. GI and surgery were consulted and both at the time, recommended medical management with plan for eventual outpatient follow up for stent retrieval and cholecystectomy respectively. His abdominal pain transiently improved while NPO and on fluids and labs mildly downtrended and diet was slowly advanced by GI to low fat diet. On 03/12 his abdominal pain acutely worsened and he was made NPO and by 10/4 AM his WBC uptrended to 19.3, while AST, ALT, alk phos and lipase were also rising. He had an ERCP during which the stent was noted to have migrated and nonfunctional and was removed while a new stent was placed. On 03/14 AM, he was notably tachycardic and with relative hypotension to low 100s (is typically hypertensive at baseline) and on AM labs, WBC was worse though the LFTs and lipase had mildly improved. He had CT A/P and this time is was now showing pancreatic necrosis with areas of apparent hemorrhage particularly in the head and neck of the pancreas. On discussion with Dr. Loo (surgery) and given his severe septoid status with tachycardia, worsening leukocytosis and relative hypotension, he was concerned about impending josh septic shock and likely requirement for potential pancreatic necrosectomy of which he would require hepatobiliary surgery services, hence this transfer. Fortunately, at this time, he remains normotensive with a MAP>65, afebrile, tachycardic to low 120s and saturating well on room air. He has been NPO since 03/13 overnight and his eliquis has been held since 03/08 at admission, and only received 1 dose on 03/12. DISCHARGE MEDICATIONS: Please see below. ALLERGIES: Please see below. PHYSICAL EXAMINATION ON DISCHARGE: LABORATORY DATA: Please see below. IMAGIN/5: CT A/P: Lungs: Linear atelectasis or scarring in left lower lobe. Pleural space: Trace bilateral pleural effusions with adjacent compressive atelectasis. Liver: Small simple cyst in the left hepatic lobe. Gallbladder and bile ducts: Common bile duct stent in place with extensive pneumobilia. Cholelithiasis. Pancreas: Findings suggestive of pancreatic necrosis with areas of apparent hemorrhage particularly in the head and neck of the pancreas. Spleen: Normal. No splenomegaly. Adrenals: Normal. No mass. Kidneys and ureters: Normal. No hydronephrosis. Stomach and bowel: Diverticulosis of the colon. No evidence of acute diverticulitis. Appendix: No evidence of appendicitis. Intraperitoneal space: Small ascites. Vasculature: Atherosclerotic disease of coronary arteries. Lymph nodes: Unremarkable. No enlarged lymph nodes. Urinary bladder: Unremarkable as visualized. Reproductive: Enlarged prostate. Bones/joints: Osteopenia. Multilevel degenerative disease and facet hypertrophy. Soft tissues: Small fat containing bilateral inguinal hernias. IMPRESSION: Findings suggestive of pancreatic necrosis with areas of apparent hemorrhage particularly in the head and neck of the pancreas. Common bile duct stent in place with extensive pneumobilia. Cholelithiasis. 03/13/2020 ERCP report: - The previously placed plastic stent has migrated almost completely out of the bile duct and is likely nonfunctional in this position. This stent was removed and replaced with a covered wall stent. - One covered 10mm x 6 cm metal wall stent was placed into the common bile duct. - The major papilla was located entirely within a shallow diverticulum. - Choledocholithiasis was found. Removal was not attempted; a covered wall stent was inserted. Recommendation: - Repeat ERCP in ~4 months to remove stones and stent. - Refer to a surgeon at appointment to be scheduled. - Observe patient's clinical course following today's ERCP with therapeutic intervention. - Return to my office as previously scheduled. 03/13: CXR: FINDINGS: Tubes, catheters and devices: Stable left chest cardiac device. Lungs: Mild right basilar atelectasis. Lung bennett are otherwise clear. Pleural space: Small left-sided pleural effusion. Heart/Mediastinum: Stable cardiac silhouette. Diaphragm: Elevation of the right hemidiaphragm, stable. Bones/joints: There are degenerative changes involving the spine. 03/09: ABDOMINAL XR: FINDINGS: Tubes, catheters and devices: Dual chamber cardiac pacer demonstrated. Catheter demonstrated in the mid abdomen. Lungs: Normal. No consolidation. Pleural space: Blunted right costophrenic angle consistent with a pleural effusion. Heart/Mediastinum: Normal. No cardiomegaly. Gastrointestinal tract: Mildly dilated loops of small bowel with air-fluid levels consistent with a ileus or small-bowel obstruction. Intraperitoneal space: Normal. No free air. Bones/joints: Normal. No acute fracture. Soft tissues: Normal. IMPRESSION: Mildly dilated loops of small bowel with air-fluid levels consistent with a ileus or small-bowel obstruction. 03/09: CT A/P: FINDINGS: Pleural space: Small bilateral pleural effusions. Compressive atelectasis both lung bases. Mediastinal space: A small hiatal hernia is present. Liver: There is a diffuse decrease in hepatic parenchymal density, consistent with steatosis. Gallbladder and bile ducts: Polypoid densities demonstrated within the lumen of the gallbladder representing calculi or polyps. Mild thickening of the gallbladder wall. Clinical correlation to exclude cholecystitis suggested. There is an indwelling stent demonstrated in the distal common bile duct. Pancreas: There is marked diffuse peripancreatic inflammatory stranding and fluid, consistent with acute pancreatitis. Fluid extends into both anterior pararenal spaces. Spleen: Normal. No splenomegaly. Adrenals: Normal. No mass. Kidneys and ureters: Normal. No hydronephrosis. Stomach and bowel: Unremarkable. No obstruction. No mucosal thickening. Appendix: No evidence of appendicitis. Intraperitoneal space: Unremarkable. No free air. No significant fluid collection. Vasculature: The aortoiliac vessels demonstrate mild atherosclerotic calcification. Lymph nodes: Unremarkable. No enlarged lymph nodes. Urinary bladder: Unremarkable as visualized. Reproductive: The prostate gland demonstrates marked hyperplasia. Bones/joints: Moderate to severe central spinal stenosis L3-L4, severe central spinal stenosis L4-L5. Bulging annulus L5-S1. Soft tissues: Unremarkable. IMPRESSION: 1. Polypoid densities demonstrated within the lumen of the gallbladder representing calculi or polyps. Mild thickening of the gallbladder wall. Clinical correlation to exclude cholecystitis suggested. 2. There is a diffuse decrease in hepatic parenchymal density, consistent with steatosis. 3. There is marked diffuse peripancreatic inflammatory stranding and fluid, consistent with acute pancreatitis. Fluid extends into both anterior pararenal spaces. 4. A small hiatal hernia is present. 5. Marked prostatic hyperplasia. PROGNOSIS: Guarded, being transferred to higher level of care hospital ACTIVITY: As tolerated DIET: NPO DISCHARGE [facility] Being transferred to [facility] ITEMS TO FOLLOWUP ON ON OUTPATIENT: Necrotizing pancreatitis choledocholithiasis with CBD stent cholecystitis pending eventual cholecystectomy DISCHARGE CONDITION: Hemodynamically stable TIME SPENT ON DISCHARGE: 56 minutes. Vital Signs/I&Os Vital Signs Date Time Temp Pulse Resp B/P (MAP) Pulse Ox O2 Delivery O2 Flow Rate FiO2 03/14/20 10:18 100.1 121 19 118/74 (89) 95 Room Air 03/14/20 06:00 2.0 I&O- Last 24 Hours up to 6 AM 03/14/20 05:59 Intake Total 3440 ml Output Total 1050 ml Balance 2390 ml Laboratory Data Labs 24H Laboratory Tests 2 03/13/20 22:36: Immature Granulocyte % (Auto) 0.7, Neutrophils (%) (Auto) 92.9H, Lymphocytes (%) (Auto) 2.2L, Monocytes (%) (Auto) 4.1, Eosinophils (%) (Auto) 0.0, Basophils (%) (Auto) 0.1, Neutrophils # (Auto) 23.9H, Lymphocytes # (Auto) 0.6L, Monocytes # (Auto) 1.1H, Eosinophils # (Auto) 0.0, Basophils # (Auto) 0.0, Nucleated Red Blood Cells % (auto) 0.0, Anion Gap 10, Glomerular Filtration Rate > 60.0, Calcium Level 8.1L, Total Bilirubin 1.1H, Aspartate Amino Transf (AST/SGOT) 49H, Alanine Aminotransferase (ALT/SGPT) 150H, Alkaline Phosphatase 452H, Total Creatine Kinase 33L, Creatine Kinase MB 1.3, Creatine Kinase MB Relative Index 3.94, Troponin I < 0.02, Total Protein 6.1L, Albumin 2.1L, Albumin/Globulin Ratio 0.5, Lipase 2486H, Thyroid Stimulating Hormone (TSH) 0.346L 03/13/20 23:30: Lactic Acid Level 1.3 03/14/20 05:35: Nucleated Red Blood Cells % (auto) 0.0, Anion Gap 9, Glomerular Filtration Rate > 60.0, Calcium Level 8.1L, Total Bilirubin 1.0, Aspartate Amino Transf (AST/SGOT) 37, Alanine Aminotransferase (ALT/SGPT) 121H, Alkaline Phosphatase 378H, Total Protein 5.6L, Albumin 2.0L, Albumin/Globulin Ratio 0.6, Lipase 1160H CBC/BMP Laboratory Tests 03/13/20 22:36 03/14/20 05:35 Microbiology Microbiology 03/11/20 Blood Culture - Preliminary, Resulted No Growth after 72 hours. All specime... 03/10/20 Stool Occult Blood (ROXANA) - Final, Complete Discharge Medications No Active Prescriptions or Reported Meds Allergies Coded Allergies: No Known Allergies (Unverified , 02/29/20) LISHA FUENTES MD Mar 14, 2020 14:37
--- NOTE | 2020-03-14 20:53 | ECGEPIP ---
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
--- NOTE | 2020-03-21 10:59 | REP ---
ERCP: 3-VIEWS HISTORY: ERCP in the OR. 69 seconds of fluoroscopy time is reported. FINDINGS: A sequence of three [id number] fluoroscopically obtained spot radiographs of the right upper quadrant demonstrate endoscopic cannulation, contrast injection, and stent replacement in the common bile duct. MTDD
== END 2020-03-14 20:08 | disposition short-term general hospital (02) | DRG 444 ==
LOC: M ED 15:25 → M ED INP 19:53 → M MSPAV 23:55 → M ICU 03-14 13:43
PROVIDERS: ADMIT Internal Medicine; ATTEND Internal Medicine
PROC: 0F798DZ Dilation of Common Bile Duct with Intraluminal Device, Via Natural or Artificial Opening Endoscopic (ICD-10-PCS; 2020-03-13)
PROC: 0FPB8DZ Removal of Intraluminal Device from Hepatobiliary Duct, Via Natural or Artificial Opening Endoscopic (ICD-10-PCS; principal; 2020-03-13 14:05)
DX: K80.42 Calculus of bile duct with acute cholecystitis without obstruction (principal); K85.11 Biliary acute pancreatitis with uninfected necrosis; A41.9 Sepsis, unspecified organism; I48.20 Chronic atrial fibrillation, unspecified; E87.1 Hypo-osmolality and hyponatremia; N17.9 Acute kidney failure, unspecified; I50.32 Chronic diastolic (congestive) heart failure; T85.520A Displacement of bile duct prosthesis, initial encounter; R53.1 Weakness; I11.0 Hypertensive heart disease with heart failure; E78.5 Hyperlipidemia, unspecified; I25.10 Atherosclerotic heart disease of native coronary artery without angina pectoris; K44.9 Diaphragmatic hernia without obstruction or gangrene; E87.6 Hypokalemia; Z95.0 Presence of cardiac pacemaker; Z79.01 Long term (current) use of anticoagulants; Z79.82 Long term (current) use of aspirin; Z79.899 Other long term (current) drug therapy; D64.9 Anemia, unspecified; N40.0 Benign prostatic hyperplasia without lower urinary tract symptoms; K76.0 Fatty (change of) liver, not elsewhere classified; Y83.1 Surgical operation with implant of artificial internal device as the cause of abnormal reaction of the patient, or of later complication, without mention of misadventure at the time of the procedure

== ENCOUNTER → 2021-01-24 | Outpatient (REF) | payer MEDICARE ==
[~2021-01-24] MED LIST changes: +CVS1CAP2 PO; -LISI-538 PO; +LISI20TA33 PO
[2021-01-24 18:09] LABS: APPEARANCE, URINE MANUAL TURBID (CLEAR); BILIRUBIN, URINE MANUAL NEGATIVE (NEGATIVE); BLOOD URINE MANUAL POSITIVE (NEGATIVE); COLOR, URINE MANUAL RED (YELLOW); GLUCOSE, URINE (UA) MANUAL NEGATIVE (NEGATIVE); KETONE, URINE MANUAL NEGATIVE (NEGATIVE); LEUKOCYTE ESTERASE, URINE MAN POSITIVE (NEGATIVE); NITRITE, URINE MANUAL NEGATIVE (NEGATIVE); PROTEIN, URINE MANUAL 3+ mg/dL (NEGATIVE); UROBILINOGEN, URINE MANUAL NORMAL (NORMAL)
[2021-01-24 18:55] LABS: BACTERIA, URINE NONE SEEN; MUCUS, URINE MOD AMOUNT (NEGATIVE); RBC, URINE TNTC /hpf (0-3); SQUAMOUS EPITHELIAL CELL URINE NONE SEEN /hpf (SMALL AMT)
[2021-01-24 19:03] LABS: HYALINE CAST, URINE NONE SEEN /lpf (0-1)
== END ==
LOC: M SMT 17:15
PROVIDERS: ATTEND Nurse Practitioner Family
DX: N39.0 Urinary tract infection, site not specified (principal)

== ENCOUNTER → 2021-02-14 | Outpatient (REF) | payer MEDICARE ==
[2021-02-14 19:11] LABS: APPEARANCE, URINE CLEAR (CLEAR); BACTERIA, URINE AUTO NEGATIVE (NEGATIVE); BILIRUBIN, URINE AUTO NEGATIVE (NEGATIVE); BLOOD, URINE BLOOD NEGATIVE (NEGATIVE); COLOR, URINE YELLOW (YELLOW); GLUCOSE, URINE (UA) AUTO NEGATIVE (NEGATIVE); KETONE, URINE AUTO NEGATIVE (NEGATIVE); LEUKOCYTE ESTERASE, URINE AUTO NEGATIVE (NEGATIVE); MUCUS, URINE SMALL (NEGATIVE); NITRITE, URINE AUTO NEGATIVE (NEGATIVE); PROTEIN, URINE AUTO NEGATIVE (NEGATIVE); RBC, URINE AUTO 2 /HPF (0-3); SPECIFIC GRAVITY URINE AUTO 1.019 (1.002-1.035); SQUAMOUS EPITHELIAL CELL UR AU 0 /HPF (0-6); UROBILINOGEN, URINE AUTO 0.2 mg/dL (0.0-2.0); WBC, URINE AUTO 1 /HPF (0-3)
== END ==
LOC: M SMT 17:29
PROVIDERS: ATTEND Urology
DX: R31.0 Gross hematuria (principal)
CPT/HCPCS: 81001; 88108; G0463

== ENCOUNTER → 2021-03-22 | Outpatient (REF) | payer MEDICARE | LOC: M SMT PRO 15:40 | PROVIDERS: ATTEND Urology | DX: R97.20 Elevated prostate specific antigen [PSA] (principal) | CPT/HCPCS: 55700; 76942; 88341; 88342; G0416 ==

== ENCOUNTER 2022-10-22 08:11 | Day surgery (SDC) | payer MEDICARE ==
[~2022-10-22] VITALS: Ht 177.8 cm; Wt 99.7 kg
[~2022-10-22 08:11] MED LIST changes: +IRBE300T7 PO; +ceFAZolin SOD 2 GM in IV 1 EA IV ONE
[2022-10-22] MEDS ORDERED: LR 1,000 ML IV SCH ×2 (08:20→10:25)
[2022-10-22] MEDS ORDERED: fentaNYL 100 MCG/2 ML INJECTION As Ordered ONE (09:26)
[2022-10-22] MEDS ORDERED: ONDANSETRON 4MG 2ML VIAL As Ordered ONE (09:26)
[2022-10-22] MEDS ORDERED: propofoL 200 MG/20 ML VIAL As Ordered ONE (09:26)
[2022-10-22] MEDS ORDERED: LIDOCAINE 2% 100MG/5ML SDV (FOR ANES.) As Ordered ONE (09:27)
[2022-10-22] MEDS ORDERED: ROCURONIUM BROMIDE 50MG/5ML VIAL As Ordered ONE ×2 (09:27→10:09)
[2022-10-22] MEDS ORDERED: hydrALAZINE 20MG/ML 1ML VIAL As Ordered ONE (10:07)
[2022-10-22] MEDS ORDERED: ACETAMINOPHEN 1000MG 100ML IV BAG As Ordered ONE (10:08)
[2022-10-22] MEDS ORDERED: ONDANSETRON 4MG 2ML VIAL IV PRN (10:25)
[2022-10-22] MEDS ORDERED: fentaNYL 100 MCG/2 ML INJECTION IV PRN (10:25)
[2022-10-22] MEDS ORDERED: oxyCODONE 5MG TAB PO PRN (10:25)
[2022-10-22] MEDS ORDERED: HYDROMORPHONE HCL 0.5 MG/ 0.5 ML SYRINGE IV PRN (10:25)
[2022-10-22 12:04] VITALS: BP 170/80
== END 2022-10-22 12:02 | disposition home or self-care (01) ==
LOC: M SDC 08:11
PROVIDERS: ATTEND Urology
DX: R93.49 Abnormal radiologic findings on diagnostic imaging of other urinary organs (principal); N40.0 Benign prostatic hyperplasia without lower urinary tract symptoms; I48.91 Unspecified atrial fibrillation; I10 Essential (primary) hypertension; I25.10 Atherosclerotic heart disease of native coronary artery without angina pectoris; Z95.5 Presence of coronary angioplasty implant and graft; E78.00 Pure hypercholesterolemia, unspecified; Z95.0 Presence of cardiac pacemaker; K21.9 Gastro-esophageal reflux disease without esophagitis; E11.9 Type 2 diabetes mellitus without complications; Z87.891 Personal history of nicotine dependence; Z79.899 Other long term (current) drug therapy; Z79.01 Long term (current) use of anticoagulants; Z79.82 Long term (current) use of aspirin
CPT/HCPCS: 52000; J0131; J0360; J1100; J2405; J3010

== ENCOUNTER 2025-05-02 17:46 | Emergency (ER) | payer BC, MEDICARE ==
[~2025-05-02] VITALS: Ht 177.8 cm; Wt 100.6 kg
[~2025-05-02 17:46] MED LIST changes: +IRBE300T25 PO; -IRBE300T7 PO; -ROSU40TA4 PO; +ROSU40TA81 PO; -ceFAZolin SOD 2 GM in IV 1 EA IV ONE
[2025-05-02 18:14] LABS: BASO # 0.0 10^3/uL (0.0-0.2); BASO % 0.5 % (0.0-1.0); EOS # 0.1 10^3/uL (0.0-0.5); EOS % 1.4 % (0.0-3.0); LYMPH # 2.7 10^3/uL (1.5-5.0); LYMPH % 36.3 % (24.0-44.0); MONO # 0.7 10^3/uL (0.0-0.8); MONO % 9.3 % (2.0-8.0); NEUTROPHILS # 3.8 10^3/uL (1.5-8.5); NEUTROPHILS % 52.2 % (36.0-66.0); PLATELET COUNT, AUTOMATED 200 10^3/uL (150-450)
[2025-05-02 18:39] LABS: CK-MB VALUE MASS 1.8 NG/ML (<3.6)
[2025-05-02 18:48] LABS: ETHYL ALCOHOL (ETHANOL) 0.269 % (0.000-0.010)
[2025-05-02 18:50] LABS: CALCIUM LEVEL 8.7 MG/DL (8.3-10.6); CARBON DIOXIDE LEVEL 22.0 MMOL/L (20-31); CHLORIDE LEVEL 108.0 MMOL/L (98-107); CREATININE FOR GFR 1.88 MG/DL (0.70-1.30); GLOMERULAR FILTRATION RATE 35.2 (>35); POTASSIUM SERUM 3.5 MMOL/L (3.5-5.1); SODIUM LEVEL 145.0 MMOL/L (136-145)
[2025-05-02 19:00] LABS: CPK CREATINE PHOSPHOKINASE 74.0 U/L (46-171); MB/CK RELATIVE INDEX 2.43 (< OR =4)
[2025-05-02 22:00] VITALS: BP 110/49; TEMP 98.2; O2SAT 97
== END 2025-05-02 22:10 | disposition home or self-care (01) ==
LOC: M ED 17:46
DX: F10.120 Alcohol abuse with intoxication, uncomplicated (principal); I45.10 Unspecified right bundle-branch block; I25.2 Old myocardial infarction; I48.91 Unspecified atrial fibrillation; I25.119 Atherosclerotic heart disease of native coronary artery with unspecified angina pectoris; E78.5 Hyperlipidemia, unspecified; K21.9 Gastro-esophageal reflux disease without esophagitis; I10 Essential (primary) hypertension; Z79.01 Long term (current) use of anticoagulants; Z79.899 Other long term (current) drug therapy